=== PATIENT | male | born 1950 | race Caucasian/White ===

== ENCOUNTER → 2017-10-02 | Outpatient (CLI) | payer OTHER ==
[~2017-10-02] MED LIST: REGADENOSON 0.4 MG/5 ML PF SYG IVP SCH
== END | disposition home or self-care (01) ==
LOC: SHCH 08:41
PROVIDERS: ATTEND Internal Medicine Cardiovascular Disease
DX: I10 Essential (primary) hypertension (principal); J44.9 Chronic obstructive pulmonary disease, unspecified
CPT/HCPCS: 78452; 93017; 96374; A9500 ×2; J2785

== ENCOUNTER → 2017-10-11 | Outpatient (CLI) | payer OTHER | END | disposition home or self-care (01) | LOC: SHCH 15:39 → EDUNIT# 16:00 | PROVIDERS: ATTEND Internal Medicine Cardiovascular Disease | DX: I51.7 Cardiomegaly (principal); I10 Essential (primary) hypertension | CPT/HCPCS: 93306 ==

== ENCOUNTER 2021-02-03 07:16 | Day surgery (SDC) | payer OTHER ==
[2021-02-02 14:52] LABS: BASOPHILS % (AUTO) 0.7 % (0.0-5.0); EOSINOPHILS % (AUTO) 2.5 % (0.0-8.0); HEMATOCRIT 41.8 % (42-54); LYMPHOCYTES % (AUTO) 17.5 % (21.0-51.0); MEAN CORPUSCULAR HEMOGLOBIN 30.8 pg (27.0-33.0); MEAN CORPUSCULAR HGB CONC 32.3 g/dL (32.0-36.0); MEAN CORPUSCULAR VOLUME 95.4 fL (79-99); MONOCYTES % (AUTO) 8.2 % (3.0-13.0); NEUTROPHILS % (AUTO) 70.7 % (40.0-77.0); PLATELET COUNT (AUTO) 296 K/uL (130-400); RED BLOOD CELL COUNT(AUTO) 4.38 MIL/uL (4.50-6.20); RED CELL DISTRIBUTION WIDTH 13.2 % (11.0-15.5)
[2021-02-02 15:00] LABS: CREATININE 1.2 mg/dL (0.5-1.5); POTASSIUM 4.5 mmol/L (3.5-5.1)
[2021-02-02 15:29] VITALS: BP 141/94
[2021-02-03] VITALS (17 sets, daily range): BP systolic 81–142; BP diastolic 54–88
[~2021-02-03] VITALS: Ht 182.9 cm; Wt 111.3 kg
[~2021-02-03 07:16] MED LIST changes: +ACET-2743 PO; +APIX5TAB PO; +DILT300C51 PO; +DRON400T7 PO; +LOSA25TA41 PO; +METO25TA6 PO; -REGADENOSON 0.4 MG/5 ML PF SYG IVP SCH; +TIOT4MIS3 IH
[2021-02-03] MEDS ORDERED: 0.9%NACL 1000ML 1,000 ML IV SCH (08:00)
[2021-02-03] MEDS ORDERED: PROPOFOL 10 MG/ML 20ML VIAL IV ONE (08:49)
== END 2021-02-03 10:30 | disposition home or self-care (01) ==
LOC: DAH 07:16
PROVIDERS: ATTEND Internal Medicine Cardiovascular Disease
DX: I48.19 Other persistent atrial fibrillation (principal); Z20.822 Contact with and (suspected) exposure to COVID-19; J44.9 Chronic obstructive pulmonary disease, unspecified; I10 Essential (primary) hypertension; I25.10 Atherosclerotic heart disease of native coronary artery without angina pectoris; Z72.89 Other problems related to lifestyle; Z79.82 Long term (current) use of aspirin; Z79.01 Long term (current) use of anticoagulants; Z98.890 Other specified postprocedural states; Z90.49 Acquired absence of other specified parts of digestive tract; Z82.49 Family history of ischemic heart disease and other diseases of the circulatory system; Z79.899 Other long term (current) drug therapy
CPT/HCPCS: 36415; 80048; 85025; 87635; 92960; 93005 ×2; A4215; A4216; A4221; A4222; A4223 ×3; A4606; A4663; C9803; J2704; J7030

== ENCOUNTER → 2021-05-11 | Outpatient (CLI) | payer OTHER ==
[~2021-05-11] MED LIST changes: +ALBUTEROL 0.083% 2.5 MG/3 ML INH IH ONE; -METO25TA6 PO
== END | disposition home or self-care (01) ==
LOC: RESP 12:46
PROVIDERS: ATTEND Internal Medicine Cardiovascular Disease
DX: R06.02 Shortness of breath (principal)
CPT/HCPCS: 94060; 94727; 94729

== ENCOUNTER → 2025-02-24 | Outpatient (CLI) | payer OTHER ==
[~2025-02-24] MED LIST changes: -ALBUTEROL 0.083% 2.5 MG/3 ML INH IH ONE; +DILT300C42 PO; -DILT300C51 PO; +PERFLUTREN PROTEIN-A MICROSPHR 0.22 MG/ML VIAL IV ONE
--- NOTE | 2025-02-24 22:08 | HMCSR ---
APPROVED REPORT EXAM: Two-dimensional and M-mode echocardiogram with Doppler and color Doppler. INDICATION ICD: I50.42 Contrast Details Agent/Amount Used: [id number] 2D Dimensions RVDd5.4 cmLVEF(%)23.1 (>50%)LVED Vol(simp.)126.0 mL IVSd1.0 (0.7-1.1cm)FS(%)11 %LVES Vol(simp.)83.0 mL LVDd5.1 (3.8-5.6cm)LA (2D)5.1 (1.6-4.0cm)LVEF(%, simp.)35 % PWd1.0 (0.7-1.1cm)Ao Root(2D)3.5 (2.0-3.7cm)LA ESV INDEX (BP)59.41 mL/m2 IVSs0.9 cmLVOT diam2.5 (1.8-2.4cm) LVDs4.5 (2.5-4.0cm)IVC diam2.9 cm PWs1.4 cm M-Mode Dimensions EPSS1.6 cm LA (MM)5.5 (1.6-4.0cm) Ao Root(MM)3.8 (2.0-3.7cm) Aortic Valve AoV Vmax2.5 m/Tati Peak GR24.7 mmHgLVOT Vmax0.7 m/s AoV VTI0.4 mAo Mean GR13.5 mmHgLVOT VTI0.11 m REGAN (VMAX)1.48 cm2AVA (VTI) 1.5 cm2 Mitral Valve MV E Vmax77.0 cm/sDECEL [id number] msMR [id number] cm2 MV A Vmax42.2 cm/sP 1/2 T35 ms E/A ratio1.8MVA (PHT)6.3 cm2 TDI E/E' Medial8.8E/E' Lateral6.7 Medial E' Peak V8.72 cm/sLateral E' Peak V11.45 cm/s Pulmonary Valve PV Vmax0.7 m/sPV VTI0.10 mPV Mean GR0.9 mmHg PV Peak GR1.7 mmHgPI End Valentina. Nicanor 156.9 cm/s Tricuspid Valve TR Vmax2.5 m/sRAP (EST) 15 gyJvWAJX65.3 mmHg TR Peak GR27.3 mmHg Left Ventricle The left ventricle is normal size. Severe inferoseptal, apical septal and apical hypokinesis. There i s normal left ventricular wall thickness. LVEF is 30-35%. The left ventricular diastolic function is normal. Right Ventricle The right ventricle is severely dilated. The right ventricular systolic function is mildly reduced. Atria The left atrium is severely dilated. LASVI 59 mL/m. The right atrium is severely dilated. Aortic Valve Aortic valve is trileaflet, heavily thickened with restricted opening. Mild aortic regurgitation is p resent. There is moderate aortic valvular stenosis. Peak AV gradient is 25mmHg, mean AV gradient is 1 4mmHg. AoV area 1.5cm. AoV area by planimetry 1.4cm. Mitral Valve The mitral valve is normal in structure. There is severe mitral valve regurgitation noted. MR ERO 0.4 cm. Reversed pulmonary vein flow noted. There is no mitral valve stenosis. Tricuspid Valve The tricuspid valve leaflets are mildly thickened and opens well. There is severe tricuspid valve reg urgitation noted by color Doppler. RVSP 42mmHg Pulmonic Valve The pulmonary valve is normal in structure. There is trace of pulmonic valvular regurgitation. Great Vessels The aortic root is normal in size. IVC is dilated and collapses <50% with inspiration. Pericardium There is no pericardial effusion. Other Information Quality : Adequate Conclusion The left atrium is severely dilated. LASVI 59 mL/m. The right ventricle is severely dilated. The right ventricular systolic function is mildly reduced. Severe inferoseptal, apical septal and apical hypokinesis. LVEF is 30-35%. Aortic valve is trileaflet, heavily thickened with restricted opening. There is moderate aortic valvular stenosis. Peak AV gradient is 25mmHg, mean AV gradient is 14mmHg. AoV area 1.5cm. AoV area by planimetry 1.4cm. There is severe mitral valve regurgitation noted. MR ERO 0.4 cm. Reversed pulmonary vein flow noted. There is severe tricuspid valve regurgitation noted by color Doppler. RVSP 42mmHg There is no pericardial effusion.
== END | disposition home or self-care (01) ==
LOC: RAH 13:59
PROVIDERS: ATTEND Internal Medicine Cardiovascular Disease
DX: I08.3 Combined rheumatic disorders of mitral, aortic and tricuspid valves (principal); I50.42 Chronic combined systolic (congestive) and diastolic (congestive) heart failure
CPT/HCPCS: C8929; Q9956

== ENCOUNTER 2025-03-26 12:51 | Inpatient (IN) | payer OTHER ==
[~2025-03-26] VITALS: Ht 182.9 cm; Wt 90.2 kg
[~2025-03-26 12:51] MED LIST changes: -PERFLUTREN PROTEIN-A MICROSPHR 0.22 MG/ML VIAL IV ONE
--- NOTE | 2025-03-26 13:03 | ERN ---
ED Note History of Present Illness Stated Complaint: BILATERAL LOWER EXTREMITY SWELLING,ABDOMINAL PAIN Chief Complaint: Multiple Complaints Time Seen by MD: 12:54 Dictation: PATIENT IS A 75-YEAR-OLD HERE WITH HIS WITH MULTIPLE COMPLAINTS 1ST COMPLAINT IS HE HAS A INTERMITTENT RIGHT UPPER QUADRANT PAIN WORSE AFTER FOOD OCCASIONALLY SINCE NOVEMBER 2024. HE HAS AL[facility] AND HAD ULTRASOUND DONE THAT SHOWED HE HAD CHOLELITHIASIS. HE WAS NEVER REFERRED TO A SURGEON. SECOND COMPLAINT IS HE IS HAVING SHORTNESS A BREATH WITH A EDEMA TO THE BILATERAL EXTREMITIES FOR SEVERAL MONTHS. STATES HE IS WORKING WITH DR. HANSEN FOR ATRIAL FIBRILLATION AND A PACEMAKER DUE TO FLUID OVERLOAD. THIRD COMPLAINT IS GENERALIZED BODY WEAKNESS. FOURTH COMPLAINT IS LEFT FLANK PAIN WITH A AN ABRASION NOTED TO THE FLANK STATUS POST A FALL TWO DAYS AGO. STATES HIS PAIN IS A 10/10, DID NOT GO TO THE HOSPITAL. Allergies: Coded Allergies: No Known Drug Allergies (Unverified Allergy, Unknown, 10/01/17) Home Meds Reported Medications Tiotropium Br/Olodaterol HCl (Stiolto Respimat Inhal [place]) 4 Gm Mist.inhal, 2 PUFF IH DAILY 02/02/21 Acetaminophen (Tylenol Extra Strength) 500 Mg Tablet, 500 MG PO AD PRN for PAIN LEVEL 1 TO 5, TAB 02/02/21 Diltiazem HCl (Diltiazem ER) 300 Mg Capsule.er, 300 MG PO DAILY, CAP 02/02/21 Apixaban (Eliquis) 5 Mg Tablet, 5 MG PO BID, TAB 02/02/21 Losartan Potassium (Losartan Potassium) 25 Mg Tablet, 25 MG PO DAILY, TAB 02/02/21 Dronedarone Hydrochloride (Multaq) 400 Mg Tablet, 400 MG PO BID, TAB 02/02/21 Past Medical History Past Medical History: A-Fib, CHF, COPD Surgical History: Other Social History: Smokers RN Note Reviewed/Agreed w/PFSH: Yes Review of System Dictation CONSTITUTIONAL: NEGATIVE EXCEPT FOR HPI GB W HEAD/FACE: NEGATIVE EXCEPT FOR HPI EENT: NEGATIVE EXCEPT FOR HPI RESPIRATORY: NEGATIVE EXCEPT FOR HPI SHORTNESS A BREATH THREE TO 4+ EDEMA BILATERAL LOWER EXTREMITIES GASTROINTESTINAL/ABDOMINAL: NEGATIVE EXCEPT FOR HPI GENITOURINARY: NEGATIVE EXCEPT FOR HPI MUSCULOSKELETAL: NEGATIVE EXCEPT FOR HPI LEFT LATERAL LUMBAR PAIN WITH A ABRASION INTEGUMENTARY: NEGATIVE EXCEPT FOR HPI NEUROLOGICAL/PSYCH: NEGATIVE EXCEPT FOR HPI HEMATOLOGIC/LYMPHATIC: NEGATIVE EXCEPT FOR HPI ALL SYSTEMS NEGATIVE, EXCEPT NOTED ABOVE. 13 POINT REVIEW OF SYSTEMS ASSESSED AND ALL NEGATIVE EXCEPT FOR ABOVE. Initial Vital Sign VS Vital Signs Date Time Temp Pulse Resp B/P (MAP) Pulse Ox O2 Delivery O2 Flow Rate FiO2 03/26/25 12:54 97.3 86 20 141/71 99 Room Air 03/26/25 14:11 0 21 Physical Exam Dictation VITAL SIGNS REVIEWED GENERAL APPEARANCE: ALERT, ORIENTED X 3, MODERATE ACUTE DISTRESS, WELL DEVELOPED, NOURISHED. HEAD AND FACE: NON-TRAUMATIC. EYES: PERRL, PINK CONJUNCTIVAS, EYELID NO TRAUMA, ANTERIOR CHAMBER WITH ARCUS SENILIS. EARS: PINNAS INTACT AND NO SIGNS OF TRAUMA OR ERYTHEMA EAR CANALS CLEAR AND NO DISCHARGE TM NO ERYTHEMA NOSE: NO DISCHARGE, NO BLEEDING. OROPHARYNX: MOUTH NORMAL, TONGUE PINK, PHARYNX CLEAR,NO ERYTHEMA, TONSILS NO EXUDATES, NO ABSCESSES NOTED, MUCOUS MEMBRANE MOIST NECK: SUPPLE, NON-TENDER, NO THYROMEGALY, NO MASSES, NO JVD, NO BRUITS BREAST:DEFERRED CHEST:NO TENDERNESS, NO CREPITUS, NO PARADOXICAL MOVEMENT, NO RETRACTIONS LUNGS:CLEAR, WELL-VENTILATED, SYMMETRIC, NO RALES, NO WHEEZING, NO RHONCHI, NO STRIDOR, GOOD BREATH SOUNDS BILATERALLY HEART: REGULAR RATE, REGULAR RHYTHM, NO MURMUR, NO GALLOPS VASCULAR: 4+ EDEMA PERIPHERAL EDEMA, ABDOMEN: SOFT, POSITIVE BOWEL SOUNDS, NONDISTENDED, NO GUARDING, MILD RIGHT UPPER QUADRANT TENDERNESS WITH PALPATION. NO REBOUND, NO MASSES NO HEPATOMEGALY, NO SPLENOMEGALY, NO MONTE'S SIGN, NO HERNIAS. RECTAL: DEFERRED GENITAL: DEFERRED NEUROLOGICAL: NORMAL SPEECH, MOTOR FUNCTION INTACT, SENSORY FUNCTION INTACT MUSCULOSKELETAL: NECK NONTENDER, FULL RANGE OF MOTION, MODERATE TENDERNESS TO LEFT LUMBAR WITH A ABRASION NOTED. EXTREMITIES: NONTENDER, FULL RANGE OF MOTION SKIN: COLOR PINK, DRY, NO TURGOR, NO RASH, NO LACERATIONS, NO ABRASIONS, NO CONTUSIONS. LYMPHATIC: DEFERRED Results (Laboratory/Radiology) Laboratory/Radiology Laboratory Tests Test 03/26/25 13:14 White Blood Count 14.7 K/uL (4.8-10.8) H Red Blood Count 4.76 MIL/uL (4.50-6.20) Hemoglobin 15.4 g/dL (14.0-18.0) Hematocrit 46.8 % (42-54) Mean Corpuscular Volume 98.3 fL (79-99) Mean Corpuscular Hemoglobin 32.4 pg (27.0-33.0) Mean Corpuscular Hemoglobin Concent 32.9 g/dL (32.0-36.0) Red Cell Distribution Width 13.7 % (11.0-15.5) Platelet Count 270 K/uL (130-400) Mean Platelet Volume 9.1 fL (7.5-10.5) Immature Granulocyte % (Auto) 1.2 % (0-1) H Neutrophils (%) (Auto) 81.6 % (40.0-77.0) H Lymphocytes (%) (Auto) 7.5 % (21.0-51.0) L Monocytes (%) (Auto) 8.8 % (3.0-13.0) Eosinophils (%) (Auto) 0.5 % (0.0-8.0) Basophils (%) (Auto) 0.4 % (0.0-5.0) Neutrophils # (Auto) 12.0 K/uL (1.8-7.7) H Lymphocytes # (Auto) 1.1 K/uL (1.0-4.8) Monocytes # (Auto) 1.3 K/uL (0.1-1.0) H Eosinophils # (Auto) 0.07 K/uL (0.00-0.70) Basophils # (Auto) 0.06 K/uL (0.00-0.20) Absolute Immature Granulocyte (auto 0.17 K/uL (0-1) Nucleated Red Blood Cells 0.0 % (0.0-0.19) White Cell Morphology Comment See comments Sodium Level 127 mmol/L (136-145) L Potassium Level 5.3 mmol/L (3.5-5.1) H Chloride Level 91 mmol/L (101-111) L Carbon Dioxide Level 27 mmol/L (21-32) Blood Urea Nitrogen 21 mg/dL (7-18) H Creatinine 1.0 mg/dL (0.5-1.3) Glomerular Filtration Rate Calc 78 mL/min (>90) Random Glucose 87 mg/dL (70-105) Total Calcium 9.0 mg/dL (8.5-10.1) Magnesium Level 2.00 mg/dL (1.80-2.40) Total Bilirubin 1.9 mg/dL (0.2-1.0) H Aspartate Amino Transf (AST/SGOT) 25 U/L (10-37) Alanine Aminotransferase (ALT/SGPT) 24 U/L (12-78) Alkaline Phosphatase 76 U/L (50-136) Troponin I High Sensitivity 14 ng/L (4-75) B-Type Natriuretic Peptide 1190 pg/mL (0-100) H Total Protein 7.3 g/dL (6.0-8.3) Albumin 3.7 g/dL (3.5-5.0) 1202/RIGHT UPPER QUADRANT ULTRASOUND DEMONSTRATES GALLBLADDER WALL THICKENED, 6 MM WITH STONES AND APPEARS DISTENDED. 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 ED Course ED Course Orders Procedure Category Date Status Time B-Type Natriuretic LAB 03/26/25 Complete Peptide 12:59 Lumbar Spine 2-3vws RAD 03/26/25 Taken 12:59 Cbc With Differential LAB 03/26/25 Complete 12:59 Chest 1vw RAD 03/26/25 Taken 12:59 12 Lead Ekg Tracing- EKG 03/26/25 Complete Technical 12:59 Magnesium LAB 03/26/25 Complete 12:59 Troponin I High LAB 03/26/25 Complete Sensitivity 12:59 Urinalysis Profile LAB 03/26/25 Logged 12:59 Morphine 2mg Syg PHA 03/26/25 Complete (Morphine 2mg Syg) 13:00 Ondansetron 4mg Inj PHA 03/26/25 Complete (Zofran 4mg Inj) 13:00 Us Abdominal Ruq\Ltd US 03/26/25 Taken 12:59 Comprehensive LAB 03/26/25 Complete Metabolic Panel 12:59 Acetaminophen 500mg PHA 03/26/25 Complete Tab (Tylenol 500mg T 15:00 Acetaminophen 500mg PHA 03/26/25 Complete Tab (Tylenol 500mg T 14:39 Furosemide 40mg Vial PHA 03/26/25 Complete (Lasix 40mg Vial) 15:00 Current Medications Medications (Trade) Dose Ordered Sig/Dixie Route PRN Reason Start Time Stop Time Status Last Admin Dose Admin Acetaminophen (TYLenol 500MG TAB) 500 mg STK-MED ONCE .ROUTE 03/26/25 14:39 03/26/25 14:39 DC Acetaminophen (TYLenol 500MG TAB) 1,000 mg ONCE ONCE PO 03/26/25 15:00 03/26/25 15:01 DC 03/26/25 14:44 Furosemide (LASix 40MG VIAL) 40 mg ONCE ONCE IV 03/26/25 15:00 03/26/25 15:01 DC Morphine Sulfate (morPHINE 2MG SYG) 2 mg ONCE ONCE IVP 03/26/25 13:00 03/26/25 13:02 DC Ondansetron HCl (zoFRAN 4MG INJ) 4 mg ONCE ONCE IVP 03/26/25 13:00 03/26/25 13:02 DC Vital Signs Date Time Temp Pulse Resp B/P (MAP) Pulse Ox O2 Delivery O2 Flow Rate FiO2 03/26/25 14:11 97.5 102 20 100/84 99 Room Air* 0 21 03/26/25 12:54 97.3 86 20 141/71 99 Room Air 1508/SPOKE WITH PATIENT IN HIS AT LENGTH HE IS AWARE THAT HE HAS A BNP OF 11 40 IN HIS AN ACUTE CONGESTIVE HEART FAILURE. IN ADDITION HIS SODIUM IS LOW 127 [place] [address] WBCS AND HE HAS GOT CHOLELITHIASIS. PATIENT WISHES TO BE ADMITTED TO THE HOSPITAL FOR CONSULTATION WITH CARDIOLOGY FOR CONGESTIVE HEART FAILURE ATRIAL FIBRILLATION AND CHOLELITHIASIS. REVIEW OF PRIOR 2D ECHOCARDIOGRAM DEMONSTRATES PATIENT HAS A VENTRICULAR CONTRACTILITY ISSUES AND INDIGESTION FRACTION 30-35%. HE REMAINS IN ATRIAL FIBRILLATION 1530/SPOKE WITH SHAMEKA HANCOCK, REVIEWED EKG LABS CHEST X-RAY X-RAYS OF LUMBAR WELL RIGHT UPPER QUADRANT ULTRASOUND. HE IS AWARE THE PATIENT HAS BEEN SEEN BY , AGREED TO ADMIT PATIENT HEART Score Response (Comments) Value EKG: Repolarization changes 1 Age: > 65yrs (+2) 2 Risk Factors: 3+ risk factors (+2) 2 Initial Troponin: Normal limit (0) 0 Total 5 Medical Decision Making MDM MDM: DIFFERENTIAL DIAGNOSIS: ACS/AMI/CHF/PNEUMONIA/BRONCHITIS/ELECTROLYTE IMBALANCE/DEHYDRATION/CHOLELITHIASIS/CHOLEDOCHOLITHIASIS/LUMBAR PAIN/FRACTURE RATIONALE: TESTS CONSIDERED AND ORDERED SECONDARY TO SHARED DECISION MAKING INCLUDE: LABS, ECG AND RADIOLOGY PREVIOUS OUTSIDE RECORDS REVIEWED: OLD ER VISITS. RISK OF COMPLICATION AND/OR MORBIDITY OR MORTALITY OF PATIENT MANAGEMENT: NONE MEDICATIONS-PER MEDICATION RECONCILIATION NEED FOR HOSPITALIZATION: PATIENT DOES MEET CRITERIA FOR HOSPITALIZATION. PATIENT NEEDS TO BE ADMITTED FOR DIURESIS ELECTROLYTE MANAGEMENT CARDIOLOGY CONSULTATION NEED FOR EMERGENCY MAJOR/MINOR SURGERY: NO THERE ARE NO SOCIAL CONCERNS WITH THIS PATIENT. PRESCRIPTION DRUG MANAGEMENT PRESCRIPTIONS WILL INCLUDE SYMPTOMATIC CARE PATIENT'S PRIOR EXTERNAL MEDICAL RECORDS FROM OTHER ER VISITS WERE REVIEWED BY ME INDICATED. PRIOR TESTING AND RESULTS FROM PREVIOUS VISITS WERE REVIEWED. PRIOR TESTS WERE TAKEN INTO ACCOUNT WITH MEDICAL DECISION MAKING AND RESOURCE UTILIZATION, INDEPENDENT HISTORIAN/HISTORIANS WERE USED TO OBTAIN COMPLETE MEDICAL HISTORY. I INDEPENDENTLY INTERPRETED THE TEST THAT WERE PERFORMED, RESULTS WERE REVIEWED BY ME AND CONSIDERED FINDINGS ON RADIOLOGY IF ORDERED. MEDICAL MANAGEMENT AND EXAMINATION INTERPRETATION DISCUSSIONS WERE HAD BY ME WITH OTHER QUALIFIED HEALTHCARE PROFESSIONALS INDICATED FOR THE PATIENT'S CARE. DX & DISP Disposition: Observation Decision to Admit Time: 15:09 Departure Impression: Primary Impression: Acute exacerbation of CHF (congestive heart failure) Additional Impressions: Atrial fibrillation, Hyponatremia, Hypochloremia, Elevated bilirubin, Cholelithiasis Condition: Stable Referrals: RICHARD AGUILA (PCP) Time of Disposition: 15:09 I have reviewed the case, and I agree with, Diagnosis and Plan FRANCIA MENDOZA Mar 26, 2025 13:02
[2025-03-26 13:20] LABS: IMMATURE GRANULOCYTE ABSOLUTE 0.17 K/uL (0-1); NUCLEATED RED BLOOD CELLS 0.0 % (0.0-0.19); PLATELET COUNT (AUTO) 270 K/uL (130-400); RED BLOOD CELL COUNT(AUTO) 4.76 MIL/uL (4.50-6.20); RED CELL DISTRIBUTION WIDTH 13.7 % (11.0-15.5); WHITE BLOOD COUNT (AUTO) 14.7 K/uL (4.8-10.8)
[2025-03-26 13:28] LABS: CREATININE 1.0 mg/dL (0.5-1.3); GLOMERULAR FILTR. RATE CALC 78.0 mL/min (>90); GLUCOSE,RANDOM 87.0 mg/dL (70-105); SODIUM SERUM 127.0 mmol/L (136-145); UREA NITROGEN, BLOOD 21.0 mg/dL (7-18)
[2025-03-26 13:33] LABS: ASPARTATE AMINOTRANSFERASE 25.0 U/L (10-37); TOTAL PROTEIN, SERUM 7.3 g/dL (6.0-8.3)
--- NOTE | 2025-03-26 13:34 | EKG ---
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1950 Requested By: FRANCIA MENDOZA Order Number: [id number] Reading MD: Ayaz Sagastume Measurements Intervals [place] Rate: 98 P: 0 OR: 0 QRS: -49 QRSD: 107 T: 54 QT: 390 QTc: 501 Interpretive Statements Atrial fibrillation Incomplete RBBB and LAFB Prolonged QT interval Compared to ECG 02/03/2021 09:51:45 Left anterior fascicular block now present Incomplete right bundle-branch block now present Right bundle-branch block now present Prolonged QT interval now present Sinus bradycardia no longer present Electronically Signed On 03-26-2025 17:48:34 CDT by Ayaz Sagastume Please click the below link to view image of tracing.
--- NOTE | 2025-03-26 15:58 | HMCIMG ---
EXAM: CR Chest, 1 View. CLINICAL HISTORY: SHORTNESS A BREATH COMPARISON: None provided. FINDINGS: LUNGS: There is no mass, infiltrate, or acute pulmonary abnormality. Mild left midlung linear atelectasis versus scarring. PLEURAL SPACES: No evidence of pleural effusion or pneumothorax. MEDIASTINUM: The cardiomediastinal silhouette is within normal limits. Mild aortic arch calcific atherosclerosis. Right chest port and intact catheter in place BONES: No acute osseous abnormality. IMPRESSION: No acute cardiopulmonary pathology is evident. /[place]
--- NOTE | 2025-03-26 15:59 | HMCIMG ---
EXAM: CR Lumbar Spine, 3 View. CLINICAL HISTORY: LEFT LATERAL LUMBAR PAIN STATUS POST FALL TWO DAYS AGO COMPARISON: None provided. FINDINGS: BONES: No acute fracture or aggressive appearing osseous lesion. ALIGNMENT: Alignment is within normal limits. No significant scoliosis. Straightening the normal lumbar lordosis. Mild loss of the disc heights at L3-S1. Mild to moderate facet arthrosis L4-S1. Marked abdominal aorta and bilateral common iliac artery calcific atherosclerosis without evidence of aneurysm. The bony structures appear somewhat demineralized. SOFT TISSUES: The soft tissues are unremarkable. IMPRESSION: 1. No acute osseous injury. 2. Straightening of normal lumbar lordosis. 3. Mild disc height loss at L3-S1. 4. Mild to moderate facet arthrosis L4-S1. 5. Marked calcific atherosclerosis of abdominal aorta and bilateral common iliac arteries without aneurysm. 6. Demineralization of bony structures. /[place]
--- NOTE | 2025-03-26 16:02 | HMCIMG ---
EXAM: US Abdomen, Right Upper Quadrant. CLINICAL HISTORY: RIGHT UPPER QUADRANT PAIN TECHNIQUE: Right upper quadrant sonography performed with image documentation. COMPARISON: None provided. FINDINGS: LIVER: The enlarged liver measures 16.4 cm with increased echogenicity suggestive of hepatic steatosis. No mass. GALLBLADDER: The gallbladder is distended with stones and wall thickening (6 mm). COMMON BILE DUCT: Within normal limits in size (6 mm). PANCREAS: The visualized pancreas appears within normal limits. The distal pancreas is obscured by bowel gas. RIGHT KIDNEY: Measures 9.1 x 4.8 x 3.7 cm. Normal renal contours. No renal mass or calculus. No hydronephrosis. IMPRESSION: 1. Cholelithiasis with gallbladder wall thickening, suggesting acute cholecystitis. 2. Hepatomegaly with increased echogenicity, consistent with hepatic steatosis. /[place]
--- NOTE | 2025-03-26 16:17 | NUR ---
DCP:HOME Pt currently lives at home with his Ariane Shepherd [phone]. Pt does have a walker and wheelchair at home. Pt does not have a provider or home health agency. Pt states that assists him with his ADLs. PCP is Dr. Ernesto Arnold [facility]. Pt also uses the [facility] for any RX needs. At [place] pt will want to go home and family can assist with transportation. Addendum: 03/26/25 at 1625 by DOUG COATES SS Amended: Links added.
[2025-03-26 16:24] LABS: INR 1.37 (0.85-1.15)
[2025-03-26] MEDS ORDERED: 0.9%NACL 50ML IV SCH (16:30)
[2025-03-26 16:45] LABS: LACTATE DEHYDROGENASE 329.0 U/L (81-234)
[2025-03-26 16:50] VITALS: PULSE 90; RESP 20; O2SAT 99
[2025-03-26] MEDS: ZOSYN 3.375GM +NS 50ML IVPB SCH (16:56)
--- NOTE | 2025-03-26 16:59 | HMCIMG ---
EXAM: CT Abdomen and Pelvis Without IV contrast CLINICAL HISTORY: possible cholecystitis, fall few days ago with lower back pain TECHNIQUE: Axial computed tomography images of the abdomen and pelvis without intravenous contrast. CONTRAST: No IV contrast. COMPARISON: None provided. FINDINGS: LUNG BASES: Small pleural LIVER: Unremarkable. GALLBLADDER AND BILE DUCTS: Some gallstones, thickened gallbladder wall. Cholecystitis cannot be excluded right upper quadrant ultrasound recommended PANCREAS: Unremarkable. SPLEEN: Unremarkable. ADRENAL GLANDS: Unremarkable. KIDNEYS, URETERS, AND BLADDER: The kidneys appear within normal limits. There is no hydronephrosis or hydroureter. No urinary calculi are seen. STOMACH AND BOWEL: Unremarkable appearance of the stomach and bowel. No evidence of bowel obstruction. No evidence suggesting enteritis or colitis. APPENDIX: No evidence of acute appendicitis on CT examination. PERITONEUM: No free fluid. No free air. LYMPH NODES: No lymphadenopathy is evident. REPRODUCTIVE: Unremarkable as visualized. VASCULATURE: No evidence of abdominal aortic aneurysm. BONES: No aggressive appearing osseous lesion. No acute osseous pathology evident. MISCELLANEOUS: Left flank subcutaneous hematoma/edema formation felt to be posttraumatic IMPRESSION: 1. Some gallstones, thickened gallbladder wall. Cholecystitis cannot be excluded right upper quadrant ultrasound recommended 2. Small pleural 3. Left flank subcutaneous hematoma/edema formation felt to be posttraumatic /[place]
--- NOTE | 2025-03-26 17:00 | HMCIMG ---
EXAM: US for Deep Venous Thrombosis, bilateral Lower Extremity. CLINICAL HISTORY: Leg Pain and Swelling TECHNIQUE: Real-time ultrasound scan of the veins of the bilateral lower extremity with color Doppler flow, spectral waveform analysis and compression. COMPARISON: None provided. FINDINGS: DEEP VEINS: The common femoral, superficial femoral, and popliteal veins are echolucent and compressible. There is normal color Doppler flow throughout. The visualized calf veins appear patent. SOFT TISSUES: No popliteal fossa cyst or other abnormalities. IMPRESSION: Pulsatile flow suggesting heart failure No deep venous thrombosis evident on bilateral lower extremity examination. /[place]
--- NOTE | 2025-03-26 17:27 | HP ---
[facility] HISTORY AND PHYSICAL Date of Service: Mar 26, 2025 Time of Service: 17:05 HISTORY OF PRESENT ILLNESS: Date of service: 03/26/2025, patient was seen in ER 15 This is a 75-year-old male with history of advanced cardiomyopathy with LVEF of 30-35%, history of moderate valvular aortic stenosis, history of severe mitral valve regurgitation, COPD, history of severe tricuspid valve regurgitation, hypertension, atrial fibrillation maintained on chronic anticoagulation with Eliquis who presented to the ER for further evaluation of shortness of breadth, significant lower extremity edema as well as intermittent right upper quadrant abdominal pain. Patient is hard of hearing and patient's was present at bedside to assist with further history. reports that patient has been having progressive lower extremity edema ongoing for several days. Patient has been having dyspnea on exertion as well. Patient is followed by Dr. Lackey with Cardiology as outpatient. He is also followed by Dr. Mata as outpatient and he has been up coming appointment to evaluate for ICD/[employer] D therapy evaluation. Patient has a history of advanced cardiomyopathy with valvulopathy. He is currently maintained on 10 mg of torsemide daily. He is on high-dose metoprolol succinate for management of atrial fibrillation as well. He gets short of breath with minimal ambulation, he has significant lower extremity edema which has been worsening as well. Patient has been following up with his PCP for issues with gallbladder related pain. He was previously told that he has cholelithiasis. He gets intermittent right upper quadrant pain. Oral intake has been poor as well. Patient fell about two days ago, and he has been having some back pain involving the left flank and lower back. He denies syncope or hitting his head with the fall. He recently had a CT head without contrast in December after he fell and hit his head. states that CT head without contrast was negative. Since the fall, patient developed a small wound in the back for which patient's has been applying band aid to it. Patient reports having history of atrial fibrillation and is maintained on chronic anticoagulation with Eliquis. Last dose of Eliquis was earlier this morning. on Presentation to the hospital, patient was noted to be afebrile with T-max of 97.3 F, heart rate of 83 with EKG showed findings of atrial fibrillation with PVCs and prolonged QTC. [place] [address], hemoglobin of 15.4, platelet count of 745326. BMP showed sodium of 127, potassium 5.3, BUN of 21, creatinine of 1.0, BNP of 1190. Chest x-ray showed mild bilateral infiltrates, abdominal ultrasound showed fin dings suggestive of acute cholecystitis. Patient will be admitted to cardiac telemetry floor for management of acute on chronic systolic heart failure exacerbation in the setting of advanced cardiomyopathy and valvulopathy. Patient will be started on broad-spectrum antibiotics due to concerns of acute cholecystitis. Consultation with Cardiology will be requested. Patient will be managed conservatively with regards to acute cholecystitis, we will have surgery follow this patient. Patient will be placed on fluid restrictions due to underlying hyponatremia. sodium will be monitored closely while on IV diuretics. REVIEW OF SYSTEMS CONSTITUTIONAL: Denies fevers or chills, reports having malaise and poor oral intake NEUROLOGICAL: Denies headache, amaurosis fugax, motor weakness, sensory deficit, vertigo/spinning sensation, gait abnormalities, or tremors. ENT: No hearing loss, otalgia, otorrhea, rhinitis, rhinorrhea, hoarseness, or sore throat. CARDIOVASCULAR: Reports having significant lower extremity edema, history of heart failure, denies active chest pain PULMONARY: Reports having dyspnea on exertion SLEEP: Denies morning headaches, daytime somnolence or napping. Denies difficulty falling asleep, staying asleep, waking from sleep. Denies knowledge of snoring. GASTROINTESTINAL: Reports having poor oral intake, denies nausea or vomiting GENITOURINARY: Denies frequency, urgency, nocturia, hematuria or incontinence (Storage/Irritative symptoms.) Low urinary stream, straining to void, urinary intermittency or hesitancy, splitting of the voiding stream, terminal dribbling. ENDOCRINOLOGIC: Denies polyuria, polydipsia, polyphagia or heat/cold intolerances. HEMATOLOGIC: Denies thrombophilia/previous clots, or coagulopathy/bleeding disorders. ONCOLOGIC: Denies personal history of malignancy. DERMATOLOGIC: Denies rashes or pruritus. PSYCHIATRIC: Denies any suicidal or homicidal ideation. Denies hallucinations. 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, denies any illicit drug use, resides with at home, since with [facility] FAMILY HISTORY: Pertinent family history Allergies: No known drug allergies Home medications: Family will be bringing list of home medications will be reconciled and updated, patient reports being on Eliquis5 mg twice daily, torsemide 10 mg daily, he is also on high-dose metoprolol for management of atrial fibrillation Coded Allergies: No Known Drug Allergies (Unverified Allergy, Unknown, 10/01/17) PHYSICAL EXAM GENERAL APPEARANCE: The patient is awake, alert, and oriented, in no acute cardiopulmonary distress, appears debilitated NEUROLOGICAL: Cranial nerves II-XII grossly intact. Motor is 5/5 in bilateral upper and lower extremities proximal to distal. No sensory deficits. HEENT: Face is symmetric. Pupils are equal and reactive. Extraocular movements are intact. NECK: Supple. No JVD. No thyromegaly. No submental, submandibular, pre- /postauricular, occipital or supraclavicular lymphadenopathy. CHEST: Normal chest expansion. No Telemetry. LUNGS: minimal crackles noted of the bilateral lung bases CARDIOVASCULAR: Regular. S1 and S2 normal. No appreciable rubs, murmurs or gallops. ABDOMEN: Soft, nontender, and nondistended. There is no rebound, voluntary guarding, or rigidity. : Deferred. No Hough. EXTREMITIES: 3+ pitting edema noted of the bilateral lower extremities SKIN: skin tear noted of the lower back Vital Sign (Last 24 Hours) 03/26/25 14:11 Temp 97.5 Pulse 102 Resp 20 B/P (MAP) 100/84 Pulse Ox 99 O2 Delivery Room Air* O2 Flow Rate 0 FiO2 21 LABS: Laboratory: Test 03/26/25 13:14 03/26/25 13:12 Range/Units White Blood Count 14.7 H 4.8-10.8 K/uL Red Blood Count 4.76 4.50-6.20 MIL/uL Hemoglobin 15.4 14.0-18.0 g/dL Hematocrit 46.8 42-54 % Mean Corpuscular Volume 98.3 79-99 fL Mean Corpuscular Hemoglobin 32.4 27.0-33.0 pg Mean Corpuscular Hemoglobin Concent 32.9 32.0-36.0 g/dL Red Cell Distribution Width 13.7 11.0-15.5 % Platelet Count 270 130-400 K/uL Mean Platelet Volume 9.1 7.5-10.5 fL Immature Granulocyte % (Auto) 1.2 H 0-1 % Neutrophils (%) (Auto) 81.6 H 40.0-77.0 % Lymphocytes (%) (Auto) 7.5 L 21.0-51.0 % Monocytes (%) (Auto) 8.8 3.0-13.0 % Eosinophils (%) (Auto) 0.5 0.0-8.0 % Basophils (%) (Auto) 0.4 0.0-5.0 % Neutrophils # (Auto) 12.0 H 1.8-7.7 K/uL Lymphocytes # (Auto) 1.1 1.0-4.8 K/uL Monocytes # (Auto) 1.3 H 0.1-1.0 K/uL Eosinophils # (Auto) 0.07 0.00-0.70 K/uL Basophils # (Auto) 0.06 0.00-0.20 K/uL Absolute Immature Granulocyte (auto 0.17 0-1 K/uL Nucleated Red Blood Cells 0.0 0.0-0.19 % White Cell Morphology Comment See comments Sodium Level 127 L 136-145 mmol/L Potassium Level 5.3 H 3.5-5.1 mmol/L Chloride Level 91 L 101-111 mmol/L Carbon Dioxide Level 27 21-32 mmol/L Blood Urea Nitrogen 21 H 7-18 mg/dL Creatinine 1.0 0.5-1.3 mg/dL Glomerular Filtration Rate Calc 78 >90 mL/min Random Glucose 87 70-105 mg/dL Total Calcium 9.0 8.5-10.1 mg/dL Magnesium Level 2.00 1.80-2.40 mg/dL Total Bilirubin 1.9 H 0.2-1.0 mg/dL Aspartate Amino Transf (AST/SGOT) 25 10-37 U/L Alanine Aminotransferase (ALT/SGPT) 24 12-78 U/L Alkaline Phosphatase 76 50-136 U/L Troponin I High Sensitivity 14 4-75 ng/L B-Type Natriuretic Peptide 1190 H 0-100 pg/mL Total Protein 7.3 6.0-8.3 g/dL Albumin 3.7 3.5-5.0 g/dL Erythrocyte Sedimentation Rate 27 H 0-20 MM/HR Prothrombin Time 14.1 H 9.6-11.6 SEC Prothromb Time International Ratio 1.37 H 0.85-1.15 Activated Partial Thromboplast Time 36.8 H 26.3-35.5 SEC Hemoglobin A1c 5.5 4.0-6.0 % Estimated Average Glucose (eAG) 111 70-126 mg/dL Lactate Dehydrogenase 329 H 81-234 U/L C-Reactive Protein, Quantitative 16.90 H 0.5-3.0 mg/L Procalcitonin < 0.05 L 0.05-0.5 ng/mL Thyroid Stimulating Hormone (TSH) 1.03 0.36-3.74 uIU/mL Current Medications Medications (Trade) Dose Ordered Sig/Dixie Route PRN Reason Start Time Stop Time Status Last Admin Dose Admin Acetaminophen (TYLenol 325MG TAB) 650 mg Q6H PRN PO MILD PAIN (1-3) 03/26/25 16:30 04/25/25 16:29 Enoxaparin Sodium (Lovenox (Pharmacy To Dose)) 1 unit BID SQ 03/26/25 21:00 03/27/25 20:59 Furosemide (LASix 40MG VIAL) 40 mg BID IV 03/26/25 21:00 04/25/25 20:59 Ipratropium [place] (AtrovENT UD) 0.5 mg Q6H PRN IH SHORTNESS OF BREATH 03/26/25 16:30 04/25/25 16:29 Magnesium Sulfate 50 ml @ 0 mls/hr PROTOCOL IV 03/26/25 16:30 04/25/25 16:29 Ondansetron HCl (zoFRAN 4MG INJ) 4 mg Q6H PRN IVP NAUSEA/VOMITING 03/26/25 16:30 04/25/25 16:29 Pantoprazole Sodium (PROTonix 40MG TAB) 40 mg DAILY PO 03/27/25 09:00 04/26/25 08:59 Piperacillin Sod/ Tazobactam Sod (Zosyn 3.375gm+NS 50ml) 3.375 gm Q8H IVPB 03/26/25 16:30 04/05/25 16:29 03/26/25 16:56 3.375 GM Sodium Chloride (NS 50ml) 50 ml AD IV 03/26/25 16:30 03/26/25 16:21 DC DIAGNOSTICS / RADIOLOGY: SERVICE [id number] REASON: possible cholecystitis, fall few days ago with lower back pain ORDERING PHYSICIAN: JEMAL TARIQ MD PROCEDURE: ABD PEL WO - CT ABDOMEN/PELVIS W/O CONTRAST EXAM: CT Abdomen and Pelvis Without IV contrast CLINICAL HISTORY: possible cholecystitis, fall few days ago with lower back pain TECHNIQUE: Axial computed tomography images of the abdomen and pelvis without intravenous contrast. CONTRAST: No IV contrast. COMPARISON: None provided. FINDINGS: LUNG BASES: Small pleural LIVER: Unremarkable. GALLBLADDER AND BILE DUCTS: Some gallstones, thickened gallbladder wall. Cholecystitis cannot be excluded right upper quadrant ultrasound recommended PANCREAS: Unremarkable. SPLEEN: Unremarkable. ADRENAL GLANDS: Unremarkable. KIDNEYS, URETERS, AND BLADDER: The kidneys appear within normal limits. There is no hydronephrosis or hydroureter. No urinary calculi are seen. STOMACH AND BOWEL: Unremarkable appearance of the stomach and bowel. No evidence of bowel obstruction. No evidence suggesting enteritis or colitis. APPENDIX: No evidence of acute appendicitis on CT examination. PERITONEUM: No free fluid. No free air. LYMPH NODES: No lymphadenopathy is evident. REPRODUCTIVE: Unremarkable as visualized. VASCULATURE: No evidence of abdominal aortic aneurysm. BONES: No aggressive appearing osseous lesion. No acute osseous pathology evident. MISCELLANEOUS: Left flank subcutaneous hematoma/edema formation felt to be posttraumatic IMPRESSION: 1. Some gallstones, thickened gallbladder wall. Cholecystitis cannot be excluded right upper quadrant ultrasound recommended 2. Small pleural 3. Left flank subcutaneous hematoma/edema formation felt to be posttraumatic /[place] DICTATED BY: LELIA CURIEL MD DATE: 03/26/251758 ELECTRONICALLY SIGNED BY: LELIA CURIEL MD DATE: 03/26/251758 SERVICE 125 REASON: RIGHT UPPER QUADRANT PAIN ORDERING PHYSICIAN: FRANCIA MENDOZA PROCEDURE: ABDRUQLTD - US ABDOMINAL RUQ\LTD EXAM: US Abdomen, Right Upper Quadrant. CLINICAL HISTORY: RIGHT UPPER QUADRANT PAIN TECHNIQUE: Right upper quadrant sonography performed with image documentation. COMPARISON: None provided. FINDINGS: LIVER: The enlarged liver measures 16.4 cm with increased echogenicity suggestive of hepatic steatosis. No mass. GALLBLADDER: The gallbladder is distended with stones and wall thickening (6 mm). COMMON BILE DUCT: Within normal limits in size (6 mm). PANCREAS: The visualized pancreas appears within normal limits. The distal pancreas is obscured by bowel gas. RIGHT KIDNEY: Measures 9.1 x 4.8 x 3.7 cm. Normal renal contours. No renal mass or calculus. No hydronephrosis. IMPRESSION: 1. Cholelithiasis with gallbladder wall thickening, suggesting acute cholecystitis. 2. Hepatomegaly with increased echogenicity, consistent with hepatic steatosis. /[place] DICTATED BY: SERGIO FONSECA MD DATE: 03/26/251701 ELECTRONICALLY SIGNED BY: SERGIO FONSECA MD DATE: 03/26/251701 SERVICE 58 REASON: SHORTNESS A BREATH ORDERING PHYSICIAN: FRANCIA MENDOZA PROCEDURE: CXR1VW - CHEST 1VW EXAM: CR Chest, 1 View. CLINICAL HISTORY: SHORTNESS A BREATH COMPARISON: None provided. FINDINGS: LUNGS: There is no mass, infiltrate, or acute pulmonary abnormality. Mild left midlung linear atelectasis versus scarring. PLEURAL SPACES: No evidence of pleural effusion or pneumothorax. MEDIASTINUM: The cardiomediastinal silhouette is within normal limits. Mild aortic arch calcific atherosclerosis. Right chest port and intact catheter in place BONES: No acute osseous abnormality. IMPRESSION: No acute cardiopulmonary pathology is evident. /[place] DICTATED BY: DOUG RAHMAN MD DATE: 03/26/251657 ELECTRONICALLY SIGNED BY: DOUG RAHMAN MD DATE: 03/26/251657 ASSESSMENT: Acute decompensated heart failure exacerbation, POA History of advanced dilated cardiomyopathy with LVEF of 30-35%, POA Acute cholecystitis, POA Status post fall, POA History of chronic atrial fibrillation maintained on chronic anticoagulation with Eliquis, POA Moderate aortic valvular stenosis, POA Severe mitral regurgitation, POA Severe tricuspid valve regurgitation, POA Status post fall with lower back pain and left flank pain, POA Large subcutaneous left flank hematoma measuring 20 cm x 4 cm, POA History of hypertension, POA Hypervolemic hyponatremia, POA Hyperkalemia, POA Leukocytosis, POA PLAN: Patient will be admitted to cardiac telemetry floor We will start patient on IV diuresis with Lasix 40 mg q.12h, we will monitor sodium trend closely, we will up titrate dose of Lasix in the next 24 hours based on urine output Patient does report having had a fall, denies syncopal episode or hitting his head, he has been having lower back pain and left flank pain since the fall, abdominal CT showed findings of left flank subcutaneous hematoma, hemoglobin is normal We will recheck hemoglobin later tonight, we will obtain type and screen, discussed patient's case with Dr. Sagastume with Cardiology [facility], due to findings of large left flank subcutaneous hematoma, measuring 20 cm x 4 cm, discussed with Radiology, Dr. Curiel, we will hold anticoagulation tonight, we will reassess tomorrow Consultation with Cardiology will be requested, patient has underlying history of advanced cardiomyopathy with multiple valvular issues Patient will be placed on fluid restrictions of 1.5 L daily reports that patient has had issues with tolerating PAYAL inhibitors in the past, we will continue with guideline directed medical therapy as tolerated with the patient Continue with home dose of metoprolol succinate for management of atrial fibril lation We will monitor renal function closely, we will monitor sodium trend closely tonight, we will recheck BMP in the morning Patient is having urinary retention of the ER, Hough catheter will be placed especially in the setting of IV diuresis, urine output will be monitored closely We will start patient on broad-spectrum antibiotics with IV Zosyn, patient underwent abdominal ultrasound with findings of acute cholecystitis, will keep patient NPO except for medications tonight Due to underlying multiple cardiac comorbidities, plan will be for conservative management of cholecystitis, we will request consultation with General surgery as well Patient has a wound in the back from recent fall, Wound Care will be requested All labs will be repeated in the morning All home medications will be reconciled and updated We will consider transitioning back to therapeutic dose of Lovenox tomorrow hemoglobin is stable and hematoma size is stable, we will consider repeating a CT abdomen pelvis in the next24 hours We will request consultation with Physical therapy tomorrow Reports drinking a glass of whiskey every day for long time for about 40 years, we will keep patient on CIWA protocol with low-dose Librium Date of service: 03/26/2025 Prognosis: Guarded Plan of care was discussed with patient and at bedside, Jemal Tariq MD Advanced Care Planning: Which of the following were discussed: Hospice care: Yes __ No _X_ Therapeutic options: Yes _X_ No __ Advance directives: Yes _X_ No __ Other discussions: Discussed with who?: Patient Voluntary nature of this service was explained to the patient? Yes _x_ No __ Amount of time spent: 20 minutes JEMAL TARIQ MD Mar 26, 2025 17:27
--- NOTE | 2025-03-26 17:51 | NUR ---
BLADDER SCAN 562 ML
[2025-03-26 18:27] LABS: APPEARANCE,URINE CLEAR (CLEAR); GLUCOSE, URINE (UA) NEGATIVE (NEGATIVE); LEUKOCYTE ESTERASE ,URINE NEGATIVE Leu/uL (NEGATIVE); NITRATE,URINE NEGATIVE (NEGATIVE); OCCULT BLOOD,URINE NEGATIVE (NEGATIVE)
[2025-03-26 18:28] LABS: ADD UA MICROSCOPIC NO
[2025-03-26] MEDS ORDERED: PHARMACY COMMUNICATION MISC PRN (18:30)
[2025-03-26 18:31] LABS: CREATININE,URINE RANDOM 33.56 mg/dL (30-135)
--- NOTE | 2025-03-26 19:33 | HMCIMG ---
EXAM: CT Head Without IV contrast. CLINICAL HISTORY: fall, on anticogulation TECHNIQUE: Axial computed tomography images of the head/brain without intravenous contrast. COMPARISON: None provided. FINDINGS: BRAIN: No acute bleed or infarct. Chronic ischemic and atrophic changes. VENTRICLES: No hydrocephalus. ORBITS: The orbits are unremarkable. SINUSES AND MASTOIDS: The paranasal sinuses and mastoid air cells are clear. BONES: No fracture. SOFT TISSUES: Unremarkable. IMPRESSION: No acute bleed or infarct. Chronic ischemic and atrophic changes. /[place]
[2025-03-26 19:39] VITALS: PULSE 104; RESP 19; O2SAT 98
--- NOTE | 2025-03-26 20:19 | NUR ---
REPORT GIVEN TO ARJUN MAYFIELD AT THIS TIME
[2025-03-26 20:45] VITALS: BP 133/58; PULSE 103; RESP 23; TEMP 98
[2025-03-26] MEDS ORDERED: POTA-200 PO (20:50)
[2025-03-26] MEDS ORDERED: METO200T37 PO (20:51)
[2025-03-26] MEDS ORDERED: TORS10TA18 PO (20:53)
[2025-03-26] MEDS ORDERED: BUDE10.7 IH (20:54)
[2025-03-26] MEDS ORDERED: LEVA15HF6 IH (20:54)
[2025-03-26 21:46] LABS: CREATININE 0.9 mg/dL (0.5-1.3); GLOMERULAR FILTR. RATE CALC 88.0 mL/min (>90); GLUCOSE,RANDOM 98.0 mg/dL (70-105); SODIUM SERUM 129.0 mmol/L (136-145); UREA NITROGEN, BLOOD 23.0 mg/dL (7-18)
[2025-03-26 23:59] VITALS: BP 129/79; PULSE 99; RESP 22; TEMP 97.7
[2025-03-27] VITALS (8 sets, daily range): BP systolic 106–126; BP diastolic 64–74; PULSE 50–110; RESP 17–21; TEMP 97.5–98; O2SAT 95–97
[2025-03-27 04:56] LABS: IMMATURE GRANULOCYTE ABSOLUTE 0.06 K/uL (0-1); NUCLEATED RED BLOOD CELLS 0.0 % (0.0-0.19); PLATELET COUNT (AUTO) 238 K/uL (130-400); RED BLOOD CELL COUNT(AUTO) 4.45 MIL/uL (4.50-6.20); RED CELL DISTRIBUTION WIDTH 13.6 % (11.0-15.5); WHITE BLOOD COUNT (AUTO) 11.9 K/uL (4.8-10.8)
[2025-03-27 05:13] LABS: ASPARTATE AMINOTRANSFERASE 19.0 U/L (10-37); CREATININE 1.0 mg/dL (0.5-1.3); GLOMERULAR FILTR. RATE CALC 78.0 mL/min (>90); GLUCOSE,RANDOM 83.0 mg/dL (70-105); SODIUM SERUM 132.0 mmol/L (136-145); TOTAL PROTEIN, SERUM 6.5 g/dL (6.0-8.3); UREA NITROGEN, BLOOD 23.0 mg/dL (7-18)
[2025-03-27] MEDS: BUDESONIDE IH SCH (09:00)
[2025-03-27] MEDS: FORMOTEROL IH SCH (09:00)
[2025-03-27] MEDS: GLYCOPYR IH SCH (09:00)
--- NOTE | 2025-03-27 09:23 | CONS ---
CONSULTATION NOTE Date of Service: Mar 27, 2025 Reason for Consultation: [skin tear to back ] Requesting Physician: [ Dr. Tariq ] HISTORY OF PRESENT ILLNESS: Patient is evaluated at bedside in room 221 for wound care evaluation. The patient is a 75-year-old male with history of advanced cardiomyopathy with LVEF of 30-35%, history of moderate valvular aortic stenosis, history of severe mitral valve regurgitation, COPD, history of severe tricuspid valve regurgitation, hypertension, atrial fibrillation maintained on chronic anticoagulation with Eliquis who presented to the ER for further evaluation of shortness of breadth, significant lower extremity edema as well as intermittent right upper quadrant abdominal pain. reports that patient has been having progressive lower extremity edema ongoing for several days. Patient has been having dyspnea on exertion as well. Patient is followed by Dr. Lackey with Cardiology as outpatient. He is also followed by Dr. Mata as outpatient and he has been upcoming appointment to evaluate for ICD/GOLD STAMPER D therapy evaluation. Patient has a history of advanced cardiomyopathy with valvulopathy. He is currently maintained on 10 mg of torsemide daily. He is on high-dose metoprolol succinate for management of atrial fibrillation as well. He gets short of breath with minimal ambulation, he has significant lower extremity edema which has been worsening as well. Patient has been following up with his PCP for issues with gallbladder related pain. He was previously told that he has cholelithiasis. He gets intermittent right upper quadrant pain. Oral intake has been poor as well. Patient fell about two days ago, and he has been having some back pain involving the left flank and lower back. He denies syncope or hitting his head with the fall. Since the fall, patient developed a small wound in the back for which patient's has been applying band aid to it. Chest x-ray showed mild bilateral infiltrates, abdominal ultrasound showed findings suggestive of acute cholecystitis.Patient was admitted to cardiac telemetry floor for management of acute on chronic systolic heart failure exacerbation in the setting of advanced cardiomyopathy and valvulopathy. Patient was started on broad-spectrum antibiotics due to concerns of acute cholecystitis. REVIEW OF SYSTEMS CONSTITUTIONAL: Denies fever, chills, or fatigue. HEAD/FACE: No signs of trauma. EENT: Denies eye pain, blurred vision, double vision, or light sensitivity. RESPIRATORY: Positive for shortness of breath CARDIOVASCULAR: Denies chest pain, palpitation, syncope, Positive for lower extremity edema GASTROINTESTINAL/ABDOMINAL: Denies abdominal pain, constipation, diarrhea, nausea or vomiting GENITOURINARY: Denies dysuria or hematuria. MUSCULOSKELETAL: Denies joint pain, tenderness, or trauma. INTEGUMENTARY: skin tear to left back NEUROLOGICAL/PSYCH: Denies anxiety, depression, heat or cold intolerance. 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, denies any illicit drug use, resides with at home, since with [employer] FAMILY HISTORY: Pertinent family history Coded Allergies: No Known Drug Allergies (Unverified Allergy, Unknown, 10/01/17) PHYSICAL EXAM EYES: Anicteric. Pupils equal and reactive. HENT: No oral thrush seen, moist Oral mucosa NECK: Supple, no JVD or thyromegaly. LUNGS: Good air entry. No rales, no rhonchi. CARDIOVASCULAR: S1, S2 regular. No murmur heard.+ 3 edema to bilateral lower extremities ABDOMEN: Soft, non tender, bowel sounds present, no organomegaly CENTRAL NERVOUS SYSTEM: Awake, alert, oriented x 3. No focal deficits. SKIN: skin tear to left lower back noted with granulation and periwound bruising, Skin tear to right elbow noted with granulation with minimal serous drainage LYMPHATICS: No peripheral lymphadenopathy MUSCULOSKELETAL: No joint swelling, erythema or tenderness. EXTREMITIES: No cyanosis or clubbing BACK: No deformity GENITOURINARY: No dysuria or hematuria Vital Sign (Last 24 Hours) 03/26/25 03/27/25 03/27/25 20:40 06:40 07:00 Temp 97.5 Pulse 103 Resp 20 B/P (MAP) 126/71 Pulse Ox 96 O2 Delivery Room Air O2 Flow Rate 0 FiO2 21 Intake & Output (last 24hrs) 03/26/25 03/26/25 03/27/25 15:00 23:00 07:00 Output Total 5300 ml Balance -5300 ml LABS: Laboratory: Test 03/27/25 04:25 03/26/25 18:15 03/26/25 13:14 03/26/25 13:12 Range/Units White Blood Count 11.9 H 4.8-10.8 K/uL Red Blood Count 4.45 L 4.50-6.20 MIL/uL Hemoglobin 14.5 14.0-18.0 g/dL Hematocrit 42.3 42-54 % Mean Corpuscular Volume 95.1 79-99 fL Mean Corpuscular Hemoglobin 32.6 27.0-33.0 pg Mean Corpuscular Hemoglobin Concent 34.3 32.0-36.0 g/dL Red Cell Distribution Width 13.6 11.0-15.5 % Platelet Count 238 130-400 K/uL Mean Platelet Volume 9.0 7.5-10.5 fL Immature Granulocyte % (Auto) 0.5 0-1 % Neutrophils (%) (Auto) 80.0 H 40.0-77.0 % Lymphocytes (%) (Auto) 9.2 L 21.0-51.0 % Monocytes (%) (Auto) 9.5 3.0-13.0 % Eosinophils (%) (Auto) 0.5 0.0-8.0 % Basophils (%) (Auto) 0.3 0.0-5.0 % Neutrophils # (Auto) 9.5 H 1.8-7.7 K/uL Lymphocytes # (Auto) 1.1 1.0-4.8 K/uL Monocytes # (Auto) 1.1 H 0.1-1.0 K/uL Eosinophils # (Auto) 0.06 0.00-0.70 K/uL Basophils # (Auto) 0.04 0.00-0.20 K/uL Absolute Immature Granulocyte (auto 0.06 0-1 K/uL Nucleated Red Blood Cells 0.0 0.0-0.19 % Sodium Level 132 L 136-145 mmol/L Potassium Level 3.8 3.5-5.1 mmol/L Chloride Level 93 L 101-111 mmol/L Carbon Dioxide Level 31 21-32 mmol/L Blood Urea Nitrogen 23 H 7-18 mg/dL Creatinine 1.0 0.5-1.3 mg/dL Glomerular Filtration Rate Calc 78 >90 mL/min Random Glucose 83 70-105 mg/dL Total Calcium 8.8 8.5-10.1 mg/dL Magnesium Level 1.90 1.80-2.40 mg/dL Total Bilirubin 2.1 H 0.2-1.0 mg/dL Aspartate Amino Transf (AST/SGOT) 19 10-37 U/L Alanine Aminotransferase (ALT/SGPT) 21 12-78 U/L Alkaline Phosphatase 67 50-136 U/L B-Type Natriuretic Peptide 1310 H 0-100 pg/mL Total Protein 6.5 6.0-8.3 g/dL Albumin 3.2 L 3.5-5.0 g/dL Urine Color LIGHT-YELLOW YELLOW Urine Appearance CLEAR CLEAR Urine pH 5.5 5.0-8.0 Urine Specific [place] 1.008 1.001-1.031 Urine Protein NEGATIVE NEGATIVE mg/dL Urine Glucose (UA) NEGATIVE NEGATIVE mg/dL Urine Ketones NEGATIVE NEGATIVE mg/dL Urine Occult Blood NEGATIVE NEGATIVE Urine Nitrate NEGATIVE NEGATIVE Urine Bilirubin NEGATIVE NEGATIVE mg/dL Urine Urobilinogen 0.2 0.2-1.0 mg/dL Urine Leukocyte Esterase NEGATIVE NEGATIVE Sea/uL Urine Random Creatinine 33.56 30-135 mg/dL Urine Random Sodium 49 40-220 mmol/l White Cell Morphology Comment See comments Troponin I High Sensitivity 14 4-75 ng/L Erythrocyte Sedimentation Rate 27 H 0-20 MM/HR Prothrombin Time 14.1 H 9.6-11.6 SEC Prothromb Time International Ratio 1.37 H 0.85-1.15 Activated Partial Thromboplast Time 36.8 H 26.3-35.5 SEC Hemoglobin A1c 5.5 4.0-6.0 % Estimated Average Glucose (eAG) 111 70-126 mg/dL Lactate Dehydrogenase 329 H 81-234 U/L C-Reactive Protein, Quantitative 16.90 H 0.5-3.0 mg/L Procalcitonin < 0.05 L 0.05-0.5 ng/mL Thyroid Stimulating Hormone (TSH) 1.03 0.36-3.74 uIU/mL DIAGNOSTICS / RADIOLOGY: [ ] PROBLEM LIST : Medical Problems: Fall Unspecified open wound of left lower back Unspecified open wound of right elbow PLAN: Wound care to Left lower back and right elbow wounds-Cleanse with normal saline, pat dry, apply Triple antibiotic ointment, cover with adaptic/Vaseline gauze, gauze, and secure with tape change daily and prn Keep wounds clean and dry Offloading/reposition q 2 hours Continue IV antibiotics and Comorbidities per primary care team Further Management per hospital course. Thank You for the consult and allowing us to participate in the care of this patient. BAYLEE GLORIA Mar 27, 2025 09:23
--- NOTE | 2025-03-27 10:20 | CONS ---
Cardiac Consult Note CONSULT NOTE DATE OF SERVICE: Mar 26, 2025 at 12:51 REFERRING PROVIDER: RADHA BATISTA MD REASON FOR CONSULT: Atrial fibrillation rapid ventricular response Acute on chronic congestive heart failure HPI: Patient came into the hospital after a fall at home and worsening edema and shortness of breath in addition to palpitations. Patient had a fall at home on Sunday morning suffered some significant trauma to the left posterior back side on his ribcage root causing some ecchymosis and such. The patient states he has had a lot of falls at home as his legs have been very swollen and he has trouble controlling them. Patient does have a history of a cardiomyopathy and chronic atrial fibrillation who has been evaluated for AV node ablation and placement of Bi V AICD. He is tentatively scheduled for that on April 2025. When patient arrived here he was significantly tachycardic and volume overloaded and since he has been receiving IV Lasix he has lost approximately 5 L of fluid. Patient's diuretic dosing at home includes torsemide at 10 mg daily[address] Looking at Dr. Lackey's last note he has not tolerated sodium glucose transport to inhibitors ARB or PAYAL inhibitors. He has not tolerated spironolactone. He has significant issues with hypotensive events with the therapies. He has been maintained on Toprol at 200 mg daily in addition to Eliquis. Patient has also been intolerant to Entresto therapy. He does have a history of COPD. They have also been some complaints of right upper quadrant pain and upon evaluation and scans that were performed he was noted to have cholecystitis as well. Surgical evaluation has been requested by primary team. ROS: No fever, headache, chest pain, abdominal pain, nausea, vomiting, or diarrhea. 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 HEENT: Normocephalic, atraumatic. CARDIAC: Positive S1 and S2 borderline tachycardic irregularly irregular. No murmurs. LUNGS: Clear to auscultation bilaterally. ABDOMEN: Bowel sounds present, soft, nontender. EXTREMITIES: No edema bilaterally. NEUROLOGIC: Cranial nerves 2-12 grossly intact. PSYCHIATRIC: Calm. 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 And patient has demonstrated an intolerance to multiple medications which has been helpful in the heart failure situation so we will not reinitiate those therapies. We will continue with the beta romel for heart rate control and monitor closely considering the patient is in heart failure. Patient never had feels much improved this morning with IV diuresis and loss of the proximally 5 L. In regards to patient's atrial fibrillation we will continue with metoprolol and diuresis and we will notify Dr. Mata about patient's admission. We have placed Eliquis on hold secondary to recent trauma and do also want to hold any Lovenox but would like to reinitiate Eliquis in the next 24-36 hours of H&H is hold. In regards to presumed nonischemic cardiomyopathy I would like to repeat a 2D echocardiogram to assess left ventricular size and function as well as assess ejection fraction once more as the patient's last echo was back in July of this year. Reviewing patient's clinic records I do not see any reports involving angiography but mainly noninvasive studies like Lexiscan to assess overall atherosclerotic burden of his coronary vessels. It may be reasonable while patient is here once he is diuresed to consider performing a coronary CT angiogram to assess patency of little traverse coronary vessels and rule out any chance of possible ischemic cardiomyopathy which potentially could be improved if revascularization is optimized. Patient will be seen through the weekend we will continue IV Lasix and beta blockade for now and we will reinitiate Eliquis at the discretion of Cardiology tomorrow if H&H has remained stable and no further studies or invasive procedures are planned. In regards to preoperative assessment prior to noncardiac surgery patient is considered extremely high-risk considering his significantly elevated volume status and heart failure so would not be deemed a candidate for surgery currently and would instead treat conservatively with no plans on surgical intervention currently. Vital Signs 03/26/25 03/26/25 03/26/25 03/26/25 12:54 14:11 16:50 17:24 Temp 97.3 97.5 97.2 Pulse 86 102 90 109 Resp 20 20 20 20 B/P (MAP) 141/71 100/84 118/83 Pulse Ox 99 99 99 O2 Delivery Room Air Room Air* N/A Room Air Room Air* O2 Flow Rate 0 0 FiO2 21 21 21 03/26/25 03/26/25 03/26/25 03/26/25 19:39 19:39 19:59 20:30 Temp 98.4 Pulse 104 104 104 102 Resp 19 19 19 20 B/P (MAP) 123/74 117/75 Pulse Ox 96 96 O2 Delivery N/A Room Air Room Air* Room Air* O2 Flow Rate 0.0 0 0 FiO2 21 21 21 03/26/25 03/26/25 03/26/25 03/27/25 20:40 20:45 23:59 04:00 Temp 98.1 97.7 98.1 Pulse 103 99 110 Resp 23 22 21 B/P (MAP) 133/58 129/79 114/69 Pulse Ox 94 92 91 O2 Delivery Room Air* Room Air Room Air Room Air O2 Flow Rate 0 FiO2 21 03/27/25 03/27/25 06:40 07:00 Temp 97.5 Pulse 99 103 Resp 18 20 B/P (MAP) 126/71 Pulse Ox 96 O2 Delivery N/A Room Air Room Air FiO2 21 Laboratory Tests Test 03/26/25 13:12 03/26/25 13:14 03/26/25 18:15 03/26/25 20:53 Erythrocyte Sedimentation Rate 27 MM/HR (0-20) Prothrombin Time 14.1 SEC (9.6-11.6) Prothromb Time International Ratio 1.37 (0.85-1.15) Activated Partial Thromboplast Time 36.8 SEC (26.3-35.5) Hemoglobin A1c 5.5 % (4.0-6.0) Estimated Average Glucose (eAG) 111 mg/dL (70-126) Lactate Dehydrogenase 329 U/L (81-234) C-Reactive Protein, Quantitative 16.90 mg/L (0.5-3.0) Procalcitonin < 0.05 ng/mL (0.05-0.5) Thyroid Stimulating Hormone (TSH) 1.03 uIU/mL (0.36-3.74) White Blood Count 14.7 K/uL (4.8-10.8) Red Blood Count 4.76 MIL/uL (4.50-6.20) Hemoglobin 15.4 g/dL (14.0-18.0) 16.2 g/dL (14.0-18.0) Hematocrit 46.8 % (42-54) 48.4 % (42-54) Mean Corpuscular Volume 98.3 fL (79-99) Mean Corpuscular Hemoglobin 32.4 pg (27.0-33.0) Mean Corpuscular Hemoglobin Concent 32.9 g/dL (32.0-36.0) Red Cell Distribution Width 13.7 % (11.0-15.5) Platelet Count 270 K/uL (130-400) Mean Platelet Volume 9.1 fL (7.5-10.5) Immature Granulocyte % (Auto) 1.2 % (0-1) Neutrophils (%) (Auto) 81.6 % (40.0-77.0) Lymphocytes (%) (Auto) 7.5 % (21.0-51.0) Monocytes (%) (Auto) 8.8 % (3.0-13.0) Eosinophils (%) (Auto) 0.5 % (0.0-8.0) Basophils (%) (Auto) 0.4 % (0.0-5.0) Neutrophils # (Auto) 12.0 K/uL (1.8-7.7) Lymphocytes # (Auto) 1.1 K/uL (1.0-4.8) Monocytes # (Auto) 1.3 K/uL (0.1-1.0) Eosinophils # (Auto) 0.07 K/uL (0.00-0.70) Basophils # (Auto) 0.06 K/uL (0.00-0.20) Absolute Immature Granulocyte (auto 0.17 K/uL (0-1) Nucleated Red Blood Cells 0.0 % (0.0-0.19) White Cell Morphology Comment See comments Sodium Level 127 mmol/L (136-145) 129 mmol/L (136-145) Potassium Level 5.3 mmol/L (3.5-5.1) 4.1 mmol/L (3.5-5.1) Chloride Level 91 mmol/L (101-111) 94 mmol/L (101-111) Carbon Dioxide Level 27 mmol/L (21-32) 23 mmol/L (21-32) Blood Urea Nitrogen 21 mg/dL (7-18) 23 mg/dL (7-18) Creatinine 1.0 mg/dL (0.5-1.3) 0.9 mg/dL (0.5-1.3) Glomerular Filtration Rate Calc 78 mL/min (>90) 88 mL/min (>90) Random Glucose 87 mg/dL (70-105) 98 mg/dL (70-105) Total Calcium 9.0 mg/dL (8.5-10.1) 8.6 mg/dL (8.5-10.1) Magnesium Level 2.00 mg/dL (1.80-2.40) 1.80 mg/dL (1.80-2.40) Total Bilirubin 1.9 mg/dL (0.2-1.0) Aspartate Amino Transf (AST/SGOT) 25 U/L (10-37) Alanine Aminotransferase (ALT/SGPT) 24 U/L (12-78) Alkaline Phosphatase 76 U/L (50-136) Troponin I High Sensitivity 14 ng/L (4-75) B-Type Natriuretic Peptide 1190 pg/mL (0-100) Total Protein 7.3 g/dL (6.0-8.3) Albumin 3.7 g/dL (3.5-5.0) Urine Color LIGHT-YELLOW (YELLOW) Urine Appearance CLEAR (CLEAR) Urine pH 5.5 (5.0-8.0) Urine Specific [place] 1.008 (1.001-1.031) Urine Protein NEGATIVE mg/dL (NEGATIVE) Urine Glucose (UA) NEGATIVE mg/dL (NEGATIVE) Urine Ketones NEGATIVE mg/dL (NEGATIVE) Urine Occult Blood NEGATIVE (NEGATIVE) Urine Nitrate NEGATIVE (NEGATIVE) Urine Bilirubin NEGATIVE mg/dL (NEGATIVE) Urine Urobilinogen 0.2 mg/dL (0.2-1.0) Urine Leukocyte Esterase NEGATIVE Sea/uL Urine Random Creatinine 33.56 mg/dL (30-135) Urine Random Sodium 49 mmol/l (40-220) Test 03/27/25 04:25 White Blood Count 11.9 K/uL (4.8-10.8) Red Blood Count 4.45 MIL/uL (4.50-6.20) Hemoglobin 14.5 g/dL (14.0-18.0) Hematocrit 42.3 % (42-54) Mean Corpuscular Volume 95.1 fL (79-99) Mean Corpuscular Hemoglobin 32.6 pg (27.0-33.0) Mean Corpuscular Hemoglobin Concent 34.3 g/dL (32.0-36.0) Red Cell Distribution Width 13.6 % (11.0-15.5) Platelet Count 238 K/uL (130-400) Mean Platelet Volume 9.0 fL (7.5-10.5) Immature Granulocyte % (Auto) 0.5 % (0-1) Neutrophils (%) (Auto) 80.0 % (40.0-77.0) Lymphocytes (%) (Auto) 9.2 % (21.0-51.0) Monocytes (%) (Auto) 9.5 % (3.0-13.0) Eosinophils (%) (Auto) 0.5 % (0.0-8.0) Basophils (%) (Auto) 0.3 % (0.0-5.0) Neutrophils # (Auto) 9.5 K/uL (1.8-7.7) Lymphocytes # (Auto) 1.1 K/uL (1.0-4.8) Monocytes # (Auto) 1.1 K/uL (0.1-1.0) Eosinophils # (Auto) 0.06 K/uL (0.00-0.70) Basophils # (Auto) 0.04 K/uL (0.00-0.20) Absolute Immature Granulocyte (auto 0.06 K/uL (0-1) Nucleated Red Blood Cells 0.0 % (0.0-0.19) Sodium Level 132 mmol/L (136-145) Potassium Level 3.8 mmol/L (3.5-5.1) Chloride Level 93 mmol/L (101-111) Carbon Dioxide Level 31 mmol/L (21-32) Blood Urea Nitrogen 23 mg/dL (7-18) Creatinine 1.0 mg/dL (0.5-1.3) Glomerular Filtration Rate Calc 78 mL/min (>90) Random Glucose 83 mg/dL (70-105) Total Calcium 8.8 mg/dL (8.5-10.1) Magnesium Level 1.90 mg/dL (1.80-2.40) Total Bilirubin 2.1 mg/dL (0.2-1.0) Aspartate Amino Transf (AST/SGOT) 19 U/L (10-37) Alanine Aminotransferase (ALT/SGPT) 21 U/L (12-78) Alkaline Phosphatase 67 U/L (50-136) B-Type Natriuretic Peptide 1310 pg/mL (0-100) Total Protein 6.5 g/dL (6.0-8.3) Albumin 3.2 g/dL (3.5-5.0) Current Medications Medications Dose Ordered Sig/Dixie Route PRN Reason Start Time Stop Time Status Last Admin Morphine Sulfate 2 mg ONCE ONCE IVP 03/26/25 13:00 03/26/25 13:02 DC Ondansetron HCl 4 mg ONCE ONCE IVP 03/26/25 13:00 03/26/25 13:02 DC Acetaminophen 1,000 mg ONCE ONCE PO 03/26/25 15:00 03/26/25 15:01 DC 03/26/25 14:44 Acetaminophen 500 mg STK-MED ONCE .ROUTE 03/26/25 14:39 03/26/25 14:39 DC Furosemide 40 mg ONCE ONCE IV 03/26/25 15:00 03/26/25 15:01 DC 03/26/25 16:57 Furosemide 40 mg BID IV 03/26/25 21:00 04/25/25 20:59 03/26/25 21:51 Pantoprazole Sodium 40 mg DAILY PO 03/27/25 09:00 04/26/25 08:59 Piperacillin Sod/ Tazobactam Sod 3.375 gm Q8H IVPB 03/26/25 16:30 04/05/25 16:29 03/27/25 00:20 Sodium Chloride 50 ml AD IV 03/26/25 16:30 03/26/25 16:21 DC Magnesium Sulfate 50 ml @ 0 mls/hr PROTOCOL IV 03/26/25 16:30 04/25/25 16:29 Enoxaparin Sodium 1 unit BID SQ 03/26/25 21:00 03/26/25 17:26 DC Metoprolol Succinate 200 mg DAILY PO 03/27/25 09:00 04/26/25 08:59 Home Med BID IH 03/27/25 09:00 04/26/25 08:59 Neomycin/ Polymyxin/ Bacitracin left lower back and right elbow DAILY11 TP 03/27/25 11:00 11/30/25 10:59 Reported Medications Levalbuterol Tartrate (Xopenex Hfa) 45 Mcg/Actuation Hfa.aer.ad, 2 PUFF IH Q4HPRN PRN for wheezing, #15 GM 0 Refills 03/26/25 Budesonide/Glycopyr/Formoterol (Breztri Aerosphere Inhaler) 160 Mcg-9 Mcg-4.8 Mcg/Actuation Hfa.aer.ad, 2 PUFF IH BID for 30 Days, #10.7 GM 0 Refills 03/26/25 Torsemide (Torsemide) 10 Mg Tablet, 1 TAB PO DAILY for 30 Days, #30 TAB 0 Refills 03/26/25 Metoprolol Succinate (Metoprolol Succinate) 200 Mg Tab.er.24h, 1 TAB PO DAILY for 30 Days, #30 TAB 0 Refills 03/26/25 Potassium Chloride (Potassium Chloride) 10 Meq Tab.er.prt, 1 TAB PO DAILY for 30 Days, #30 TAB 0 Refills 03/26/25 Tiotropium Br/Olodaterol HCl (Stiolto Respimat Inhal [place]) 4 Gm Mist.inhal, 2 PUFF IH DAILY 02/02/21 Acetaminophen (Tylenol Extra Strength) 500 Mg Tablet, 500 MG PO AD PRN for PAIN LEVEL 1 TO 5, TAB 02/02/21 Diltiazem HCl (Diltiazem ER) 300 Mg Capsule.er, 300 MG PO DAILY, CAP 02/02/21 Apixaban (Eliquis) 5 Mg Tablet, 5 MG PO BID, TAB 02/02/21 Losartan Potassium (Losartan Potassium) 25 Mg Tablet, 25 MG PO DAILY, TAB 02/02/21 Dronedarone Hydrochloride (Multaq) 400 Mg Tablet, 400 MG PO BID, TAB 02/02/21 RADHA BATISTA MD Mar 27, 2025 10:20
--- NOTE | 2025-03-27 10:31 | NUR ---
[facility] Consult: Patient assessed by wound healing team. See wound assessment. Assessment and recommendations provided to primary nurse. Education provided. Addendum: 03/27/25 at 1131 by JEZ TAVAREZ RN RN/ Amended: Links added.
[2025-03-27] MEDS: NEOMY SULF/BACITRAC ZN/POLY OINT 30GM TUBE TP SCH (12:24)
[2025-03-27] MEDS ORDERED: PHARMACY COMMUNICATION MISC SCH (12:30)
--- NOTE | 2025-03-27 14:52 | PN ---
[facility] PROGRESS NOTE Date of Service: Mar 27, 2025 Time of Service: 14:51 SUBJECTIVE: [ ] 03/27/2025: Patient was seen and evaluated bedside, case discussed with RN and no acute overnight events. Patient says he is feeling better, denies chest pain, shortness of breath, palpitations, nausea and vomiting. Morning lab showed sodium trending up to 132, potassium trending down to 3.8, BNP trending up to 1310. Patient is currently on clear liquids, waiting for cardiac clearance before surgery for acute cholecystitis. Continue IV furosemide 40 mg b.i.d., 100 mg daily p.o., Zosyn Q 8. General surgery, Cardiology, Nephrology on board and we will follow up with the recommendations. REVIEW OF SYSTEMS CONSTITUTIONAL: Denies fevers or chills, reports having malaise and poor oral intake NEUROLOGICAL: Denies headache, amaurosis fugax, motor weakness, sensory deficit, vertigo/spinning sensation, gait abnormalities, or tremors. ENT: No hearing loss, otalgia, otorrhea, rhinitis, rhinorrhea, hoarseness, or sore throat. CARDIOVASCULAR: Reports having significant lower extremity edema, history of heart failure, denies active chest pain PULMONARY: Reports having dyspnea on exertion SLEEP: Denies morning headaches, daytime somnolence or napping. Denies difficulty falling asleep, staying asleep, waking from sleep. Denies knowledge of snoring. GASTROINTESTINAL: Reports having poor oral intake, denies nausea or vomiting GENITOURINARY: Denies frequency, urgency, nocturia, hematuria or incontinence (Storage/Irritative symptoms.) Low urinary stream, straining to void, urinary intermittency or hesitancy, splitting of the voiding stream, terminal dribbling. ENDOCRINOLOGIC: Denies polyuria, polydipsia, polyphagia or heat/cold intolerances. HEMATOLOGIC: Denies thrombophilia/previous clots, or coagulopathy/bleeding disorders. ONCOLOGIC: Denies personal history of malignancy. DERMATOLOGIC: Denies rashes or pruritus. PSYCHIATRIC: Denies any suicidal or homicidal ideation. Denies hallucinations. PHYSICAL EXAM GENERAL APPEARANCE: The patient is awake, alert, and oriented, in no acute cardiopulmonary distress, appears debilitated NEUROLOGICAL: Cranial nerves II-XII grossly intact. Motor is 5/5 in bilateral upper and lower extremities proximal to distal. No sensory deficits. HEENT: Face is symmetric. Pupils are equal and reactive. Extraocular movements are intact. NECK: Supple. No JVD. No thyromegaly. No submental, submandibular, pre- /postauricular, occipital or supraclavicular lymphadenopathy. CHEST: Normal chest expansion. No Telemetry. LUNGS: minimal crackles noted of the bilateral lung bases CARDIOVASCULAR: Regular. S1 and S2 normal. No appreciable rubs, murmurs or gallops. ABDOMEN: Soft, nontender, and nondistended. There is no rebound, voluntary guarding, or rigidity. : Deferred. No Hough. EXTREMITIES: 3+ pitting edema noted of the bilateral lower extremities SKIN: skin tear noted of the lower back Vital Signs (last 8hr) Date Time Temp Pulse Resp B/P (MAP) Pulse Ox O2 Delivery O2 Flow Rate FiO2 03/27/25 11:45 102 18 N/A Room Air 21 03/27/25 11:00 97.5 101 20 117/74 97 Room Air 03/27/25 08:00 Room Air* 0 21 03/27/25 07:00 97.5 103 20 126/71 96 Room Air LABS: Laboratory: Test 03/27/25 04:25 03/26/25 18:15 03/26/25 13:14 03/26/25 13:12 Range/Units White Blood Count 11.9 H 4.8-10.8 K/uL Red Blood Count 4.45 L 4.50-6.20 MIL/uL Hemoglobin 14.5 14.0-18.0 g/dL Hematocrit 42.3 42-54 % Mean Corpuscular Volume 95.1 79-99 fL Mean Corpuscular Hemoglobin 32.6 27.0-33.0 pg Mean Corpuscular Hemoglobin Concent 34.3 32.0-36.0 g/dL Red Cell Distribution Width 13.6 11.0-15.5 % Platelet Count 238 130-400 K/uL Mean Platelet Volume 9.0 7.5-10.5 fL Immature Granulocyte % (Auto) 0.5 0-1 % Neutrophils (%) (Auto) 80.0 H 40.0-77.0 % Lymphocytes (%) (Auto) 9.2 L 21.0-51.0 % Monocytes (%) (Auto) 9.5 3.0-13.0 % Eosinophils (%) (Auto) 0.5 0.0-8.0 % Basophils (%) (Auto) 0.3 0.0-5.0 % Neutrophils # (Auto) 9.5 H 1.8-7.7 K/uL Lymphocytes # (Auto) 1.1 1.0-4.8 K/uL Monocytes # (Auto) 1.1 H 0.1-1.0 K/uL Eosinophils # (Auto) 0.06 0.00-0.70 K/uL Basophils # (Auto) 0.04 0.00-0.20 K/uL Absolute Immature Granulocyte (auto 0.06 0-1 K/uL Nucleated Red Blood Cells 0.0 0.0-0.19 % Sodium Level 132 L 136-145 mmol/L Potassium Level 3.8 3.5-5.1 mmol/L Chloride Level 93 L 101-111 mmol/L Carbon Dioxide Level 31 21-32 mmol/L Blood Urea Nitrogen 23 H 7-18 mg/dL Creatinine 1.0 0.5-1.3 mg/dL Glomerular Filtration Rate Calc 78 >90 mL/min Random Glucose 83 70-105 mg/dL Total Calcium 8.8 8.5-10.1 mg/dL Magnesium Level 1.90 1.80-2.40 mg/dL Total Bilirubin 2.1 H 0.2-1.0 mg/dL Aspartate Amino Transf (AST/SGOT) 19 10-37 U/L Alanine Aminotransferase (ALT/SGPT) 21 12-78 U/L Alkaline Phosphatase 67 50-136 U/L B-Type Natriuretic Peptide 1310 H 0-100 pg/mL Total Protein 6.5 6.0-8.3 g/dL Albumin 3.2 L 3.5-5.0 g/dL Urine Color LIGHT-YELLOW YELLOW Urine Appearance CLEAR CLEAR Urine pH 5.5 5.0-8.0 Urine Specific [place] 1.008 1.001-1.031 Urine Protein NEGATIVE NEGATIVE mg/dL Urine Glucose (UA) NEGATIVE NEGATIVE mg/dL Urine Ketones NEGATIVE NEGATIVE mg/dL Urine Occult Blood NEGATIVE NEGATIVE Urine Nitrate NEGATIVE NEGATIVE Urine Bilirubin NEGATIVE NEGATIVE mg/dL Urine Urobilinogen 0.2 0.2-1.0 mg/dL Urine Leukocyte Esterase NEGATIVE NEGATIVE Sea/uL Urine Random Creatinine 33.56 30-135 mg/dL Urine Random Sodium 49 40-220 mmol/l White Cell Morphology Comment See comments Troponin I High Sensitivity 14 4-75 ng/L Erythrocyte Sedimentation Rate 27 H 0-20 MM/HR Prothrombin Time 14.1 H 9.6-11.6 SEC Prothromb Time International Ratio 1.37 H 0.85-1.15 Activated Partial Thromboplast Time 36.8 H 26.3-35.5 SEC Hemoglobin A1c 5.5 4.0-6.0 % Estimated Average Glucose (eAG) 111 70-126 mg/dL Lactate Dehydrogenase 329 H 81-234 U/L C-Reactive Protein, Quantitative 16.90 H 0.5-3.0 mg/L Procalcitonin < 0.05 L 0.05-0.5 ng/mL Thyroid Stimulating Hormone (TSH) 1.03 0.36-3.74 uIU/mL Current Medications Medications (Trade) Dose Ordered Sig/Dixie Route PRN Reason Start Time Stop Time Status Last Admin Dose Admin Acetaminophen (TYLenol 325MG TAB) 650 mg Q6H PRN PO MILD PAIN (1-3) 03/26/25 16:30 04/25/25 16:29 Chlordiazepoxide HCl (LIBrium 25 MG CAP) 25 mg Q6H PRN PO ALCOHOL WITHDRAWAL PROTOCOL 03/26/25 18:30 04/02/25 18:29 Enoxaparin Sodium (Lovenox (Pharmacy To Dose)) 1 unit BID SQ 03/26/25 21:00 03/26/25 17:26 DC Furosemide (LASix 40MG VIAL) 40 mg BID IV 03/26/25 21:00 04/25/25 20:59 03/27/25 10:40 40 MG Home Med (Home Medication) BID IH 03/27/25 09:00 04/26/25 08:59 Ipratropium [place] (AtrovENT UD) 0.5 mg Q6H PRN IH SHORTNESS OF BREATH 03/26/25 16:30 04/25/25 16:29 03/26/25 19:39 0.5 MG Magnesium Sulfate 50 ml @ 0 mls/hr PROTOCOL IV 03/26/25 16:30 04/25/25 16:29 Metoprolol Succinate (TopROL XL) 200 mg DAILY PO 03/27/25 09:00 04/26/25 08:59 03/27/25 10:41 200 MG Neomycin/ Polymyxin/ Bacitracin (Triple Antibiotic Ointment) left lower back and right elbow DAILY11 TP 03/27/25 11:00 04/26/25 10:59 03/27/25 12:24 1 APPL Ondansetron HCl (zoFRAN 4MG INJ) 4 mg Q6H PRN IVP NAUSEA/VOMITING 03/26/25 16:30 04/25/25 16:29 Pantoprazole Sodium (PROTonix 40MG TAB) 40 mg DAILY PO 03/27/25 09:00 04/26/25 08:59 03/27/25 10:40 40 MG Pharmacy Profile Note (Pharmacy Communication) 1 each ONCE MISC 03/27/25 12:30 03/27/25 12:32 DC Pharmacy Profile Note (Pharmacy Communication) 1 each PROTOCOL PRN MISC ETOH Withdrawal Score changes 03/26/25 18:30 04/02/25 18:29 Piperacillin Sod/ Tazobactam Sod (Zosyn 3.375gm+NS 50ml) 3.375 gm Q8H IVPB 03/26/25 16:30 03/27/25 12:31 DC 03/27/25 10:40 3.375 GM Piperacillin Sod/ Tazobactam Sod (Zosyn 3.375gm+NS 50ml) 3.375 gm Q8H IVPB 03/27/25 19:30 04/06/25 19:29 Potassium Chloride 100 ml @ 100 mls/hr AD PRN IV POTASSIUM PROTOCOL 03/26/25 22:30 04/25/25 22:29 Potassium Chloride (K-Dur/Klor-Con 20meq) 20 meq AD PRN PO POTASSIUM PROTOCOL 03/26/25 22:30 04/25/25 22:29 Potassium Chloride (KCl 10% Elixir 20meq/15ml) 20 meq AD PRN PO POTASSIUM PROTOCOL 03/26/25 22:30 04/25/25 22:29 Sodium Chloride (NS 50ml) 50 ml AD IV 03/26/25 16:30 03/26/25 16:21 DC DIAGNOSTICS / RADIOLOGY: [place] [address] IMAGING REPORT Signed PATIENT: NURIS SENIOR MR#: [id number] : 1950 SEX: M AGE: 75 LOCATION: [facility] ORDER 00 STATUS: [facility] REPORT#: [id number] SERVICE 58 REASON: RIGHT UPPER QUADRANT PAIN ORDERING PHYSICIAN: FRANCIA MENDOZA MOLD PARTER PROCEDURE: ABDRUQLTD - US ABDOMINAL RUQ\LTD EXAM: US Abdomen, Right Upper Quadrant. CLINICAL HISTORY: RIGHT UPPER QUADRANT PAIN TECHNIQUE: Right upper quadrant sonography performed with image documentation. COMPARISON: None provided. FINDINGS: LIVER: The enlarged liver measures 16.4 cm with increased echogenicity suggestive of hepatic steatosis. No mass. GALLBLADDER: The gallbladder is distended with stones and wall thickening (6 mm). COMMON BILE DUCT: Within normal limits in size (6 mm). PANCREAS: The visualized pancreas appears within normal limits. The distal pancreas is obscured by bowel gas. RIGHT KIDNEY: Measures 9.1 x 4.8 x 3.7 cm. Normal renal contours. No renal mass or calculus. No hydronephrosis. IMPRESSION: 1. Cholelithiasis with gallbladder wall thickening, suggesting acute cholecystitis. 2. Hepatomegaly with increased echogenicity, consistent with hepatic steatosis. /[place] DICTATED BY: SERGIO FONSECA MD DATE: 03/26/251701 ELECTRONICALLY SIGNED BY: SERGIO FONSECA MD DATE: 03/26/251701 [place] [address] IMAGING REPORT Signed PATIENT: NURIS SENIOR MR#: [id number] : 1950 SEX: M AGE: 75 LOCATION: [facility] ORDER 00 STATUS: [facility] REPORT#: [id number] SERVICE 58 REASON: SHORTNESS A BREATH ORDERING PHYSICIAN: FRANCIA MENDOZA MOLD PARTER PROCEDURE: CXR1VW - CHEST 1VW EXAM: CR Chest, 1 View. CLINICAL HISTORY: SHORTNESS A BREATH COMPARISON: None provided. FINDINGS: LUNGS: There is no mass, infiltrate, or acute pulmonary abnormality. Mild left midlung linear atelectasis versus scarring. PLEURAL SPACES: No evidence of pleural effusion or pneumothorax. MEDIASTINUM: The cardiomediastinal silhouette is within normal limits. Mild aortic arch calcific atherosclerosis. Right chest port and intact catheter in place BONES: No acute osseous abnormality. IMPRESSION: No acute cardiopulmonary pathology is evident. /[place] DICTATED BY: DOUG RAHMAN MD DATE: 03/26/251657 ELECTRONICALLY SIGNED BY: DOUG RAHMAN MD DATE: 03/26/251657 [place] [id number] [place] [address] IMAGING REPORT Signed PATIENT: NURIS SENIOR MR#: [id number] : 1950 SEX: M AGE: 75 LOCATION: [facility] ORDER 1301 STATUS: REG ER REPORT#: [id number] SERVICE 1259 REASON: LEFT LATERAL LUMBAR PAIN STATUS POST FALL TWO DAYS AGO ORDERING PHYSICIAN: FRANCIA MENDOZA MOLD PARTER PROCEDURE: LUMB 2 3VW - LUMBAR SPINE 2-3VWS EXAM: CR Lumbar Spine, 3 View. CLINICAL HISTORY: LEFT LATERAL LUMBAR PAIN STATUS POST FALL TWO DAYS AGO COMPARISON: None provided. FINDINGS: BONES: No acute fracture or aggressive appearing osseous lesion. ALIGNMENT: Alignment is within normal limits. No significant scoliosis. Straightening the normal lumbar lordosis. Mild loss of the disc heights at L3-S1. Mild to moderate facet arthrosis L4-S1. Marked abdominal aorta and bilateral common iliac artery calcific atherosclerosis without evidence of aneurysm. The bony structures appear somewhat demineralized. SOFT TISSUES: The soft tissues are unremarkable. IMPRESSION: 1. No acute osseous injury. 2. Straightening of normal lumbar lordosis. 3. Mild disc height loss at L3-S1. 4. Mild to moderate facet arthrosis L4-S1. 5. Marked calcific atherosclerosis of abdominal aorta and bilateral common iliac arteries without aneurysm. 6. Demineralization of bony structures. /[place] DICTATED BY: DOUG RAHMAN MD DATE: 03/26/251658 ELECTRONICALLY SIGNED BY: DOUG RAHMAN MD DATE: 03/26/251658 [facility] [address] [place] [address] IMAGING REPORT Addendum PATIENT: NURIS SENIOR MR#: [id number] : 1950 SEX: M AGE: 75 LOCATION: [facility] ORDER 09 STATUS: ADM IN REPORT#: [id number] SERVICE 08 REASON: possible cholecystitis, fall few days ago with lower back pain ORDERING PHYSICIAN: JEMAL PRIDE MD PROCEDURE: ABD PEL WO - CT ABDOMEN/PELVIS W/O CONTRAST ADDENDUM REPORT ADDENDUM: The left flank hematoma measures 20 x 4 cm. Appears subcutaneous. /[place] EXAM: CT Abdomen and Pelvis Without IV contrast CLINICAL HISTORY: possible cholecystitis, fall few days ago with lower back pain TECHNIQUE: Axial computed tomography images of the abdomen and pelvis without intravenous contrast. CONTRAST: No IV contrast. COMPARISON: None provided. FINDINGS: LUNG BASES: Small pleural LIVER: Unremarkable. GALLBLADDER AND BILE DUCTS: Some gallstones, thickened gallbladder wall. Cholecystitis cannot be excluded right upper quadrant ultrasound recommended PANCREAS: Unremarkable. SPLEEN: Unremarkable. ADRENAL GLANDS: Unremarkable. KIDNEYS, URETERS, AND BLADDER: The kidneys appear within normal limits. There is no hydronephrosis or hydroureter. No urinary calculi are seen. STOMACH AND BOWEL: Unremarkable appearance of the stomach and bowel. No evidence of bowel obstruction. No evidence suggesting enteritis or colitis. APPENDIX: No evidence of acute appendicitis on CT examination. PERITONEUM: No free fluid. No free air. LYMPH NODES: No lymphadenopathy is evident. REPRODUCTIVE: Unremarkable as visualized. VASCULATURE: No evidence of abdominal aortic aneurysm. BONES: No aggressive appearing osseous lesion. No acute osseous pathology evident. MISCELLANEOUS: Left flank subcutaneous hematoma/edema formation felt to be posttraumatic IMPRESSION: 1. Some gallstones, thickened gallbladder wall. Cholecystitis cannot be excluded right upper quadrant ultrasound recommended 2. Small pleural 3. Left flank subcutaneous hematoma/edema formation felt to be posttraumatic /[place] DICTATED BY: LELIA CURIEL MD DATE: 03/26/251921 ELECTRONICALLY SIGNED BY: DATE: EXAM: CT Abdomen and Pelvis Without IV contrast CLINICAL HISTORY: possible cholecystitis, fall few days ago with lower back pain TECHNIQUE: Axial computed tomography images of the abdomen and pelvis without intravenous contrast. CONTRAST: No IV contrast. COMPARISON: None provided. FINDINGS: LUNG BASES: Small pleural LIVER: Unremarkable. GALLBLADDER AND BILE DUCTS: Some gallstones, thickened gallbladder wall. Cholecystitis cannot be excluded right upper quadrant ultrasound recommended PANCREAS: Unremarkable. SPLEEN: Unremarkable. ADRENAL GLANDS: Unremarkable. KIDNEYS, URETERS, AND BLADDER: The kidneys appear within normal limits. There is no hydronephrosis or hydroureter. No urinary calculi are seen. STOMACH AND BOWEL: Unremarkable appearance of the stomach and bowel. No evidence of bowel obstruction. No evidence suggesting enteritis or colitis. APPENDIX: No evidence of acute appendicitis on CT examination. PERITONEUM: No free fluid. No free air. LYMPH NODES: No lymphadenopathy is evident. REPRODUCTIVE: Unremarkable as visualized. VASCULATURE: No evidence of abdominal aortic aneurysm. BONES: No aggressive appearing osseous lesion. No acute osseous pathology evident. MISCELLANEOUS: Left flank subcutaneous hematoma/edema formation felt to be posttraumatic IMPRESSION: 1. Some gallstones, thickened gallbladder wall. Cholecystitis cannot be excluded right upper quadrant ultrasound recommended 2. Small pleural 3. Left flank subcutaneous hematoma/edema formation felt to be posttraumatic /[place] DICTATED BY: LELIA CURIEL MD DATE: 03/26/251758 ELECTRONICALLY SIGNED BY: LELIA CURIEL MD DATE: 03/26/2517[address] [address] IMAGING REPORT Signed PATIENT: NURIS SENIOR MR#: [id number] : 1950 SEX: M AGE: 75 LOCATION: [facility] ORDER 18 STATUS: ADM IN REPORT#: [id number] SERVICE 161 REASON: lower extremity edema, r/o any dvt ORDERING PHYSICIAN: JEMAL PRIDE MD PROCEDURE: VENOUS LINDA - US VENOUS DOPPLER BILATERAL EXAM: US for Deep Venous Thrombosis, bilateral Lower Extremity. CLINICAL HISTORY: Leg Pain and Swelling TECHNIQUE: Real-time ultrasound scan of the veins of the bilateral lower extremity with color Doppler flow, spectral waveform analysis and compression. COMPARISON: None provided. FINDINGS: DEEP VEINS: The common femoral, superficial femoral, and popliteal veins are echolucent and compressible. There is normal color Doppler flow throughout. The visualized calf veins appear patent. SOFT TISSUES: No popliteal fossa cyst or other abnormalities. IMPRESSION: Pulsatile flow suggesting heart failure No deep venous thrombosis evident on bilateral lower extremity examination. /[place] DICTATED BY: LELIA CURIEL MD DATE: 03/26/251758 ELECTRONICALLY SIGNED BY: LELIA CURIEL MD DATE: 03/26/251758 [place] [address] IMAGING REPORT Signed PATIENT: NURIS SENIOR MR#: [id number] : 1950 SEX: M AGE: 75 LOCATION: [facility] ORDER 1830 STATUS: ADM IN REPORT#: [id number] SERVICE 1828 REASON: fall, on anticogulation ORDERING PHYSICIAN: JEMAL PRIDE MD PROCEDURE: HEAD WO - CT HEAD/BRAIN W/O CONTRAST EXAM: CT Head Without IV contrast. CLINICAL HISTORY: fall, on anticogulation TECHNIQUE: Axial computed tomography images of the head/brain without intravenous contrast. COMPARISON: None provided. FINDINGS: BRAIN: No acute bleed or infarct. Chronic ischemic and atrophic changes. VENTRICLES: No hydrocephalus. ORBITS: The orbits are unremarkable. SINUSES AND MASTOIDS: The paranasal sinuses and mastoid air cells are clear. BONES: No fracture. SOFT TISSUES: Unremarkable. IMPRESSION: No acute bleed or infarct. Chronic ischemic and atrophic changes. 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%, POA Acute cholecystitis, POA Status post fall, POA History of chronic atrial fibrillation maintained on chronic anticoagulation with Eliquis, POA Moderate aortic valvular stenosis, POA Severe mitral regurgitation, POA Severe tricuspid valve regurgitation, POA Status post fall with lower back pain and left flank pain, POA Large subcutaneous left flank hematoma measuring 20 cm x 4 cm, POA History of hypertension, POA Hypervolemic hyponatremia, POA Hyperkalemia, POA Leukocytosis, POA PLAN: Acute decompensated systolic heart failure exacerbation, POA * Patient is known case of systolic heart failure taking torsemide 10 mg * On arrival patient's BNP 1190, * 2D echo from 02/24/2025 shows LVEF 30-35, potassium is severely dilated, right ventricular severely dilated * Patient was started on IV furosemide 40 mg b.i.d. * Input and output balance was -5300 on 03/27/2025 * Cardiology on board, we will follow up with the recommendations. Acute cholecystitis, POA * Patient had right upper quadrant pain on arrival * Abdominal ultrasound showed cholelithiasis with gallbladder wall thickening, suggesting acute cholecystitis * CT abdomen showed small gallstones, thickened gallbladder wall. Cholecystitis can not be excluded * Continue Zosyn IV Q8 * Patient is currently on clear liquid, surgery on board and we will follow up with the recommendation Hypervolemic hyponatremia, POA * on presentation sodium was 127 * patient placed on 1.5L fluid restriction. * patient sodium was 132 on 03/27/25 * continue IV lasix 40 mg bid * we will trend sodium levels daily History of chronic atrial fibrillation maintained on chronic anticoagulation with Eliquis, POA * patient is known case of Afib on chronic eliquis 5mg daily at home * imaging showed Large subcutaneous left flank hematoma measuring 20 cm x 4 cm * Eliquis on hold secondary to recent trauma and do also want to hold any Lovenox but would like to reinitiate Eliquis in the next 24-36 hours of H&H is hold. 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 I reviewed the documentation, medical decision making, and treatment plan as noted by the resident physician above. I agree with the findings and plan of care. MANJULA GARCIA MD, ADIL SHAH QUADRI MD Mar 27, 2025 14:52
--- NOTE | 2025-03-27 15:08 | NUR ---
Resident new to floor, arrived at 1433. Patient stable, able to voice needs. Bilateral lower extremities noted to be red and swollen. Tele monitor in place.
--- NOTE | 2025-03-27 17:22 | CONS ---
CONSULT NOTE: Consulting physician:Dr Traiq Consulting service: General surgery Reason for consultation: Possible cholecystitis History of present illness: This is a 75-year-old male with a significant medical history of a ejection fraction of 3035 with moderate valvular aortic stenosis with a history of severe mitral valve regurgitation. Patient also with a history of COPD and severe tricuspid valve regurgitation with AFib currently on Eliquis that has been consulted to surgery for concerns of intermittent right upper quadrant pain. Patient initially presented to the hospital after sustaining a fall two days prior. On admission cardiology consulted due to patient's history patient was sent to telemetry. Patient has recently been downgraded. Patient is seen in room resting. Patient with severe edema to right lower extremities. Patient also with noted hematoma to back. Patient with some abdominal discomfort at this time. WBCs 11 with a hemoglobin of . LFTs slightly elevated with a total bilirubin of 2.1. At this point in time patient is not likely candidate for surgical intervention. Medical history: Hypertension, history of advanced cardiomyopathy, history of severe tricuspid regurgitation noted on 2D echocardiogram from 01/2025, history of severe severe mitral regurgitation, history of moderate aortic valve stenosis, chronic obstructive pulmonary disease, debility, history of chronic atrial fibrillation PAST SURGICAL HISTORY: Of colon resection due to colon cancer about eight years ago, history of surgery due to shrapnel injury about 50 years ago PAST SOCIAL HISTORY: Remote history of smoking, drinks about one drink of whiskey every day for 40-50 years, denies any illicit drug use, resides with at home, since with [facility] FAMILY HISTORY: Pertinent family history Review of systems: General: No Fever, No Chills, No Night Sweats, No Fatigue, No Malaise, No Appetite, No Other HEENT: No Head Aches, No Visual Changes, No Eye Pain, No Ear Pain, No Dysphasia, No Sinus Congestion, No Post Nasal Drip, No Sore Throat, No Other Pulmonary: No Dyspnea, No Cough, No Pleuritic Chest Pain, No Other Cardiovascular: No: Chest Pain, Palpitations, Orthopnea, Paroxysmal No Dyspnea, Edema, Lt Headedness, Other Gastrointestinal: No: Nausea, Vomiting, Diarrhea, Constipation, Melena, Hematochezia, Other Genitourinary: No Dysuria, No Frequency, No Incontinence, No Hematuria, No Retention, No Other Musculoskeletal: No: other, neck pain, shoulder pain, arm pain, back pain, hand pain, leg pain, foot pain Skin: No Urticaria, No Rash, No Other Neurological: No: Weakness, Numbness, Incoordination, Change in speech, Confusion, Seizures, Other Physical exam: GENERAL APPEARANCE: The patient is awake, alert, and oriented, in no acute cardiopulmonary distress, appears debilitated NEUROLOGICAL: Cranial nerves II-XII grossly intact. Motor is 5/5 in bilateral upper and lower extremities proximal to distal. No sensory deficits. HEENT: Face is symmetric. Pupils are equal and reactive. Extraocular movements are intact. NECK: Supple. No JVD. No thyromegaly. No submental, submandibular, pre- /postauricular, occipital or supraclavicular lymphadenopathy. CHEST: Normal chest expansion. No Telemetry. LUNGS: minimal crackles noted of the bilateral lung bases CARDIOVASCULAR: Regular. S1 and S2 normal. No appreciable rubs, murmurs or gallops. ABDOMEN: Soft, nontender, and nondistended. There is no rebound, voluntary guarding, or rigidity. : Deferred. No Hough. EXTREMITIES: 3+ pitting edema noted of the bilateral lower extremities SKIN: skin tear noted of the lower back Assessment: This is a 75-year-old male with concerns of possible cholecystitis Plan: At this point in time to rule out any potential intervention needed we will order HIDA scan to evaluate gallbladder With the patient's cardiac history not likely cardiac candidate for surgical interventions of HIDA scan consistent with cholecystitis recommendation from surgical standpoint we will be cholecystostomy tube Recommendation will be for alternative AFib management for time being but we will defer to Cardiology and hospitalist team for recommendations Dr. Lundy to be updated in patient's status and nursing report any further acute events Surgical case has been discussed with my supervising physician in the above plan was formulated and agreed upon Supervising physicians evaluation the patient be done within next 24 hours We appreciate the hospitalist team for us to participate in patient's care. Greater than 55 minutes of time spent patient, reviewing chart, working on documentation ALEXANDRU SHAH Jr. [facility] Mar 27, 2025 17:22
[2025-03-27] MEDS: ZOSYN 3.375GM +NS 50ML IVPB SCH (19:37)
--- NOTE | 2025-03-27 20:02 | CONS ---
REFERRING PHYSICIAN: Dr. Tariq REASON FOR CONSULTATION: Renal failure. HISTORY OF PRESENT ILLNESS: A 75-year-old male with a history of known cardiomyopathy. The patient also with a history of known valvular heart disease, presented to the hospital with increasing shortness of breath as well as lower extremity edema. The patient was started on the diuretics. Laboratory values revealed renal dysfunction as well as hyponatremia and the patient is being seen in consultation for all of the above. PAST MEDICAL HISTORY: Hypertension, cardiomyopathy, valvular heart disease, A-fib. PAST SURGICAL HISTORY: He has had colon surgery. SOCIAL HISTORY: He does have a history of alcohol use. No tobacco use. FAMILY HISTORY: There is no renal disease in the family. ALLERGIES: No allergies. MEDICATIONS: Noted. REVIEW OF SYSTEMS: CONSTITUTIONAL: He is feeling weak and tired. HEENT: No change in vision. No change in hearing. CARDIOVASCULAR: No current chest pain or palpitations. PULMONARY: Shortness of breath did improve overnight. GASTROINTESTINAL: He is tolerating a diet. MUSCULOSKELETAL: Complains of weakness. NEUROLOGIC: No seizures or focal deficit. PSYCHIATRIC: No history of hallucinations or psychosis. ENDOCRINE: No thyroid disease. HEME: History of anemia. No malignancy. PHYSICAL EXAMINATION: VITAL SIGNS: Blood pressure is 136/71, pulse 100, afebrile. GENERAL: He is a chronically ill, elderly male, lying in bed in the medical floor. HEENT: Head is atraumatic. Pupils are equal, round and reactive to light. Oropharynx is without exudate. Nares clear. NECK: There is no JVP. There is no thyromegaly. No mass. CARDIOVASCULAR: Regular. There is no S3 or S4 gallop. LUNGS: Coarse with equal thoracic movement. ABDOMEN: Soft, nondistended, nontender. EXTREMITIES: Reveal no clubbing, cyanosis. NEUROLOGICAL: He is awake. He is alert. He is oriented. SKIN: Reveals no rashes or nodules. BACK: There is no CVA tenderness. No back deformity. LABORATORY DATA: Sodium 132, potassium 3.8, BUN 23, creatinine 1.0, hemoglobin 14, hematocrit 42, white cell count 11,000. Urinalysis is noted. Abdominal ultrasound is noted. IMPRESSION: Acute on chronic renal failure. Hypervolemia, hyponatremia. Congestive heart failure. Valvular heart disease. PLAN: The patient's renal function has stabilized. The patient's hyponatremia did improve with the diuretics. We will send off urine for electrolytes. The patient will be placed on a fluid restriction for the hyponatremia. Workup is ongoing per Cardiology. The patient's electrolytes have all been aggressively repleted. Blood pressure is under adequate control. We will continue to follow the chemistries closely. The patient had family at the bedside. Multiple questions were all answered. All labs will be repeated in the morning. TID: [id number] RECEIPT: [id number]
[2025-03-28] VITALS (9 sets, daily range): BP systolic 102–117; BP diastolic 56–75; PULSE 99–116; RESP 17–20; TEMP 97.8–97.9; O2SAT 94–97
[2025-03-28 04:39] LABS: IMMATURE GRANULOCYTE ABSOLUTE 0.07 K/uL (0-1); NUCLEATED RED BLOOD CELLS 0.0 % (0.0-0.19); PLATELET COUNT (AUTO) 223 K/uL (130-400); RED BLOOD CELL COUNT(AUTO) 4.32 MIL/uL (4.50-6.20); RED CELL DISTRIBUTION WIDTH 13.8 % (11.0-15.5); WHITE BLOOD COUNT (AUTO) 11.6 K/uL (4.8-10.8)
[2025-03-28 05:00] LABS: CREATININE 1.0 mg/dL (0.5-1.3); GLOMERULAR FILTR. RATE CALC 78.0 mL/min (>90); GLUCOSE,RANDOM 89.0 mg/dL (70-105); PHOSPHORUS 3.3 mg/dL (2.5-4.9); SODIUM SERUM 133.0 mmol/L (136-145); UREA NITROGEN, BLOOD 19.0 mg/dL (7-18)
--- NOTE | 2025-03-28 08:56 | HMCIMG ---
Examination Hepatobiliary study History colelithiasis STAT INPATIENT ROOM - 420 75YR MALE // DX: COLELITHIASIS CT: 03/26/2025 Small Gallstones; Cholecystitis can not be excluded US: 03/26/2025 GB Stones; Distended CBD: 6mm LIVER: 16.4cm Tc-99m Choletec -7mCi // NO CCK Adm. colelithiasis, Dynamic (DICOM Hx) (DICOM Hx) Technique 16.4 mCi Tc-99m mebrofenin were administered intravenously followed by acquisition of planar images of the abdomen. Findings Following administration of radiotracer, there is prompt appearance of normal hepatic contours, followed by appearance of activity in unremarkable appearing bile ducts. There is prompt filling of the gallbladder. The study is negative for acute cholecystitis. IMPRESSION: Negative HIDA study. No evidence of cholecystitis. /Roberto
--- NOTE | 2025-03-28 09:00 | NUR ---
MEDICATION AM DOSE OF LASIK NOT GIVEN. PATIENT WITH POTASSIUM LEVEL 2.9. REPLACEMENT PER PROTOCOL.
[2025-03-28] MEDS: PoTASSium chloRIDE 20MEQ ER 20 MEQ ERTAB PO PRN (09:50)
--- NOTE | 2025-03-28 10:32 | PN ---
Patient is seen for possible cholecystitis and hematoma after fall. Hemoglobin has been stable. Pain controlled. Patient denies any nausea. Exam Patient alert and oriented x3 No respiratory distress Abdomen is soft, not distended no rebound. Tenderness as expected at the site of the hematoma Assessment and plan HIDA scan showed no acute cholecystitis. Okay to advance patient's diet as tolerated to a low-fat diet. No surgical intervention planned. Hematoma is sutures be monitored and trend hemoglobins which have been stable. Do not restart the anticoagulation yet. Anticoagulation can be restarted after 10 days. We will sign off the case call us as needed. Vitals/Labs Vital Signs Date Time Temp Pulse Resp B/P (MAP) Pulse Ox O2 Delivery O2 Flow Rate FiO2 03/28/25 06:20 105 18 N/A Room Air 21 03/28/25 04:00 97.9 117/74 95 03/27/25 19:30 0 Laboratory Tests 03/28/25 04:09 Medications Current Medications Morphine Sulfate 2 mg ONCE ONCE IVP; Start 03/26/25 at 13:00; Stop 03/26/25 at 13:02; Status DC Ondansetron HCl 4 mg ONCE ONCE IVP; Start 03/26/25 at 13:00; Stop 03/26/25 at 13:02; Status DC Acetaminophen 1,000 mg ONCE ONCE PO Last administered on 03/26/25at 14:44; Start 03/26/25 at 15:00; Stop 03/26/25 at 15:01; Status DC Acetaminophen 500 mg STK-MED ONCE .ROUTE; Start 03/26/25 at 14:39; Stop 03/26/25 at 14:39; Status DC Furosemide 40 mg ONCE ONCE IV Last administered on 03/26/25at 16:57; Start 03/26/25 at 15:00; Stop 03/26/25 at 15:01; Status DC Acetaminophen 650 mg Q6H PRN PO; Start 03/26/25 at 16:30; Stop 04/25/25 at 16:29 Ondansetron HCl 4 mg Q6H PRN IVP; Start 03/26/25 at 16:30; Stop 04/25/25 at 16:29 Furosemide 40 mg BID IV Last administered on 03/27/25at 19:37; Start 03/26/25 at 21:00; Stop 04/25/25 at 20:59 Ipratropium [place] 0.5 mg Q6H PRN IH Last administered on 03/26/25at 19:39; Start 03/26/25 at 16:30; Stop 04/25/25 at 16:29 Pantoprazole Sodium 40 mg DAILY PO Last administered on 03/28/25at 09:51; Start 03/27/25 at 09:00; Stop 04/26/25 at 08:59 Piperacillin Sod/ Tazobactam Sod 3.375 gm Q8H IVPB Last administered on 03/27/25at 10:40; Start 03/26/25 at 16:30; Stop 03/27/25 at 12:31; Status DC Sodium Chloride 50 ml AD IV; Start 03/26/25 at 16:30; Stop 03/26/25 at 16:21; Status DC Magnesium Sulfate 50 ml @ 0 mls/hr PROTOCOL IV; Start 03/26/25 at 16:30; Stop 04/25/25 at 16:29 Enoxaparin Sodium 1 unit BID SQ; Start 03/26/25 at 21:00; Stop 03/26/25 at 17:26; Status DC Chlordiazepoxide HCl 25 mg Q6H PRN PO; Start 03/26/25 at 18:30; Stop 04/02/25 at 18:29 Pharmacy Profile Note 1 each PROTOCOL PRN MISC; Start 03/26/25 at 18:30; Stop 04/02/25 at 18:29 Metoprolol Succinate 200 mg DAILY PO Last administered on 03/28/25at 09:51; Start 03/27/25 at 09:00; Stop 04/26/25 at 08:59 Potassium Chloride 100 ml @ 100 mls/hr AD PRN IV Last administered on 03/28/25at 09:51; Start 03/26/25 at 22:30; Stop 04/25/25 at 22:29 Potassium Chloride 20 meq AD PRN PO; Start 03/26/25 at 22:30; Stop 04/25/25 at 22:29 Potassium Chloride 20 meq AD PRN PO Last administered on 03/28/25at 09:50; Start 03/26/25 at 22:30; Stop 04/25/25 at 22:29 Home Med BID IH; Start 03/27/25 at 09:00; Stop 04/26/25 at 08:59 Neomycin/ Polymyxin/ Bacitracin left lower back and right elbow DAILY11 TP Last administered on 03/27/25at 12:24; Start 03/27/25 at 11:00; Stop 04/26/25 at 10:59 Pharmacy Profile Note 1 each ONCE MISC; Start 03/27/25 at 12:30; Stop 03/27/25 at 12:32; Status DC Piperacillin Sod/ Tazobactam Sod 3.375 gm Q8H IVPB Last administered on 03/28/25at 03:42; Start 03/27/25 at 19:30; Stop 04/06/25 at 19:29 KALEB SOTO MD Mar 28, 2025 10:32
[2025-03-28] MEDS ORDERED: MAGNESIUM 2GM PREMIX 50ML 50 ML IV SCH (12:30)
--- NOTE | 2025-03-28 13:08 | PN ---
[facility] C[facility] PROGRESS NOTE Date Patient Seen: Mar 28, 2025 Time of Visit: 12:38 Interval History: This 75-year-old white male, patient of Dr. Avni Lackey, has a history of hypertension, colon cancer, COPD, permanent atrial fibrillation with difficult rate control, long-term anticoagulation with Eliquis, probable ischemic cardiomyopathy with LVEF of 30-35%, abnormal Lexiscan Cardiolite stress test 10/02/2017 with a moderately severe partially reversible defect at the apex, and valvular heart disease with moderate aortic stenosis, severe MR, and severe TR by 2D echocardiogram 02/24/2025 was admitted status post an accidental fall and with progressive edema and shortness of breath. He was found to be in combined systolic and diastolic congestive heart failure and was admitted for further management. Eliquis has been on hold because of bruising at the right lateral calf. He has responded to diuretic therapy with improved dyspnea, edema, and BNP 1190>>>1310>>> 737. He is also followed by Dr. Roberth Mata and plans for upcoming ICD/CHEMICAL CHECKER-D for management of his atrial fibrillation and cardiomyopathy. He was noted to have cholelithiasis on CT of the abdomen and ultrasound of the abdomen 03/26/2025 demonstrated cholelithiasis with thickening of the gallblad javan wall. A HIDA scan today demonstrated no evidence of obstruction. He is concerned about plans upon discharge given his frailty and inability to stand. He clearly will require discharge to a halfway facility. This was discussed with upper caser today. Physical Examination: GENERAL: No acute distress. HEAD: Normal with no signs of head trauma. EYES: PERRLA, EOMI, conjunctiva and sclera normal. NECK: Supple without JVD. There is no tenderness, lymphadenopathy, or masses. No thyromegaly. Normal carotid upstrokes without bruits. LUNGS: Bibasilar rales and diminished breath sounds. HEART: Normal rate and rhythm. Normal S1 and S2 with a 2/6 holosystolic murmur at the lower left sternal border radiating to the apex. There is a 2/6 early peaking systolic ejection murmur loudest at the right upper sternal border. VASC: Peripheral pulses +2 bilaterally. EXT: No clubbing or cyanosis. 2+ pitting edema to the knees bilaterally. Ecchymosis of the right lateral thigh which is soft. Small bleb on the right lateral thigh. Hyperacute pain sensitivity. NEURO: Awake, alert, and oriented x3. No focal neurological deficits noted. Laboratory: Hematology Labs: Test 03/28/25 04:09 03/26/25 13:14 03/26/25 13:12 Range/Units White Blood Count 11.6 H 4.8-10.8 K/uL Red Blood Count 4.32 L 4.50-6.20 MIL/uL Hemoglobin 14.1 14.0-18.0 g/dL Hematocrit 41.0 L 42-54 % Mean Corpuscular Volume 94.9 79-99 fL Mean Corpuscular Hemoglobin 32.6 27.0-33.0 pg Mean Corpuscular Hemoglobin Concent 34.4 32.0-36.0 g/dL Red Cell Distribution Width 13.8 11.0-15.5 % Platelet Count 223 130-400 K/uL Mean Platelet Volume 8.7 7.5-10.5 fL Immature Granulocyte % (Auto) 0.6 0-1 % Neutrophils (%) (Auto) 80.6 H 40.0-77.0 % Lymphocytes (%) (Auto) 8.1 L 21.0-51.0 % Monocytes (%) (Auto) 9.4 3.0-13.0 % Eosinophils (%) (Auto) 1.0 0.0-8.0 % Basophils (%) (Auto) 0.3 0.0-5.0 % Neutrophils # (Auto) 9.3 H 1.8-7.7 K/uL Lymphocytes # (Auto) 0.9 L 1.0-4.8 K/uL Monocytes # (Auto) 1.1 H 0.1-1.0 K/uL Eosinophils # (Auto) 0.11 0.00-0.70 K/uL Basophils # (Auto) 0.03 0.00-0.20 K/uL Absolute Immature Granulocyte (auto 0.07 0-1 K/uL Nucleated Red Blood Cells 0.0 0.0-0.19 % White Cell Morphology Comment See comments Erythrocyte Sedimentation Rate 27 H 0-20 MM/HR Chemistry Labs: Test 03/28/25 04:09 03/27/25 04:25 03/26/25 13:14 03/26/25 13:12 Range/Units Sodium Level 133 L 136-145 mmol/L Potassium Level 2.9 *L 3.5-5.1 mmol/L Chloride Level 92 L 101-111 mmol/L Carbon Dioxide Level 33 H 21-32 mmol/L Blood Urea Nitrogen 19 H 7-18 mg/dL Creatinine 1.0 0.5-1.3 mg/dL Glomerular Filtration Rate Calc 78 >90 mL/min Random Glucose 89 70-105 mg/dL Total Calcium 8.2 L 8.5-10.1 mg/dL Phosphorus Level 3.3 2.5-4.9 mg/dL Magnesium Level 1.60 L 1.80-2.40 mg/dL B-Type Natriuretic Peptide 737 H 0-100 pg/mL Total Bilirubin 2.1 H 0.2-1.0 mg/dL Aspartate Amino Transf (AST/SGOT) 19 10-37 U/L Alanine Aminotransferase (ALT/SGPT) 21 12-78 U/L Alkaline Phosphatase 67 50-136 U/L Total Protein 6.5 6.0-8.3 g/dL Albumin 3.2 L 3.5-5.0 g/dL Troponin I High Sensitivity 14 4-75 ng/L Hemoglobin A1c 5.5 4.0-6.0 % Estimated Average Glucose (eAG) 111 70-126 mg/dL Lactate Dehydrogenase 329 H 81-234 U/L C-Reactive Protein, Quantitative 16.90 H 0.5-3.0 mg/L Procalcitonin < 0.05 L 0.05-0.5 ng/mL Thyroid Stimulating Hormone (TSH) 1.03 0.36-3.74 uIU/mL Coagulation Labs: Test 03/26/25 13:12 Range/Units Prothrombin Time 14.1 H 9.6-11.6 SEC Prothromb Time International Ratio 1.37 H 0.85-1.15 Activated Partial Thromboplast Time 36.8 H 26.3-35.5 SEC Diagnostics / Radiology: Conclusion The left atrium is severely dilated. LASVI 59 mL/m. The right ventricle is severely dilated. The right ventricular systolic function is mildly reduced. Severe inferoseptal, apical septal and apical hypokinesis. LVEF is 30-35%. Aortic valve is trileaflet, heavily thickened with restricted opening. There is moderate aortic valvular stenosis. Peak AV gradient is 25mmHg, mean AV gradient is 14mmHg. AoV area 1.5cm. AoV area by planimetry 1.4cm. There is severe mitral valve regurgitation noted. MR ERO 0.4 cm. Reversed pulmonary vein flow noted. There is severe tricuspid valve regurgitation noted by color Doppler. RVSP 42mmHg There is no pericardial effusion. DICTATED BY: RODERICK ALFORD MD DATE: 02/24/25 1434 Impression and Plan: Status post fall with right lateral lower leg ecchymosis: Progressive debility: -resume chronic Eliquis 5 mg b.i.d. 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 BNP 1190>>>1310>>> 737: Moderate LV dysfunction with LVEF of 30-35% by 2D echo 02/24/2025: Probable ischemic cardiomyopathy with segmental wall motion abnormalities on 2D echo 02/24/2025 and with severe partially reversible apical defect on Cardiolite stress test 10/02/2017 Valvular heart disease with severe MR, severe TR as well as moderate aortic stenosis by 2D echo 02/24/2025 (peak aortic valve gradient 25 mm of mercury, mean aortic valve gradient 14 mm of mercury and aortic valve area of 1.5 cm: Multifactorial pedal edema: No evidence of DVT on venous Doppler of the lower extremities 03/04/2025 with significant superficial venous insufficiency in the left GSV and left SSV: - multiple drug intolerances including PAYAL inhibitors, ARB drugs, Entresto, and digoxin - transition IV Lasix 40 q.12 hours to torsemide 20 mg daily tomorrow - plans are for biventricular pacemaker/AICD insertion (CHEMICAL CHECKER-D) and AV node ablation in April with Dr. Roberth Mata Permanent atrial fibrillation with difficult rate control, requiring metoprolol 100 b.i.d.: Plans for biventricular pacemaker AICD insertion (CHEMICAL CHECKER-D) and AV node ablation April 2025: Intolerance of digoxin due to diarrhea: -rate controlled currently on metoprolol 100 b.i.d. in the 90-110 beat per minute range -the patient was previously intolerant of digoxin due to diarrhea -resume Eliquis 5 mg b.i.d. Cholelithiasis with negative HIDA scan 03/28/2025: -right upper quadrant pain appears to have stabilized Comorbidities: COPD Frailty History of colon cancer Essential hypertension Multiple drug intolerances with dizziness with Entresto, fatigue with olmesartan and losartan, hypotension with PAYAL inhibitors, and diarrhea with digoxin RODERICK ALFORD MD Mar 28, 2025 13:08
[2025-03-28] MEDS: PoTASSium chloRIDE 20MEQ ER 20 MEQ ERTAB PO SCH (13:21)
--- NOTE | 2025-03-28 13:27 | PN ---
FOLLOWUP PROGRESS NOTE SUBJECTIVE: A 75-year-old male with a history of known cardiomyopathy. The patient with a history of valvular heart disease. He initially presented with increasing shortness of breath, orthopnea. The patient was started on the diuretics. The patient has had acute on chronic renal failure in the hospital. Creatinine has been elevated and he is being seen as a followup visit for all of the above. Patient also with evidence of significant hyponatremia. REVIEW OF SYSTEMS: GENERAL: He is feeling somewhat improved overnight. HEENT: No change in vision. No change in hearing. CARDIOVASCULAR: There is no current chest pain or palpitations. PULMONARY: Shortness of breath has greatly improved. GASTROINTESTINAL: He is tolerating a diet. MUSCULOSKELETAL: Complaints of weakness. PHYSICAL EXAMINATION: VITAL SIGNS: Blood pressure is 117/74, pulse in the 90s. GENERAL: He is a chronically ill, elderly male, lying in bed on the medical floor. HEENT: Head is atraumatic. Pupils are equal, round, and reactive to light. Oropharynx is without exudate. Nares clear. NECK: There is no JVP. There is no thyromegaly. CARDIOVASCULAR: Regular. There is no S3 or S4 gallop. LUNGS: Coarse with equal thoracic movement. ABDOMEN: Soft, nondistended and nontender. EXTREMITIES: Reveal no clubbing, no cyanosis. NEUROLOGICAL: He is awake, he is alert. LABORATORY DATA: Sodium 133, potassium 2.9, BUN 19, creatinine 1, hemoglobin 14, hematocrit 41. IMPRESSION: Acute on chronic renal failure. Cardiomyopathy. Hyponatremia. Anemia. PLAN: The patient's creatinine did stabilize. The patient's serum sodium has improved with the diuretics. He is encouraged with the fluid restriction. Urine output has been excellent with the diuretics. Potassium has been aggressively repleted and we will continue to follow closely. The patient does have severe cardiomyopathy. Workup is ongoing per Cardiology. We will continue to follow closely. The patient and family at the bedside. Multiple questions were answered. TID: [id number] RECEIPT: [id number]
[2025-03-28] MEDS: MAGNESIUM 2GM PREMIX 50ML 50 ML IV SCH (13:31)
[2025-03-28 14:18] LABS: CREATININE 1.1 mg/dL (0.5-1.3); GLOMERULAR FILTR. RATE CALC 69.0 mL/min (>90); GLUCOSE,RANDOM 133.0 mg/dL (70-105); SODIUM SERUM 133.0 mmol/L (136-145); UREA NITROGEN, BLOOD 18.0 mg/dL (7-18)
--- NOTE | 2025-03-28 16:08 | PN ---
[facility] PROGRESS NOTE Date of Service: Mar 28, 2025 Time of Service: 15:51 SUBJECTIVE: [ ] 03/27/2025: Patient was seen and evaluated bedside, case discussed with RN and no acute overnight events. Patient says he is feeling better, denies chest pain, shortness of breath, palpitations, nausea and vomiting. Morning lab showed sodium trending up to 132, potassium trending down to 3.8, BNP trending up to 1310. Patient is currently on clear liquids, waiting for cardiac clearance before surgery for acute cholecystitis. Continue IV furosemide 40 mg b.i.d., 100 mg daily p.o., Zosyn Q 8. General surgery, Cardiology, Nephrology on board and we will follow up with the recommendations. 03/28/2025: Patient was seen and evaluated bedside in room 420. Case discussed with RN, no acute overnight events. Patient vitals are hemodynamically stable except for heart rate in late 90s and early 100s overnight. Patient is responding well to IV Lasix I and O balance this morning was -6590. Morning lab showed potassium 2.9, started replacing per protocol. HIDA scan was done this morning which was negative for acute cholecystitis. Cardiology recommended resuming Eliquis5 mg b.i.d. for AFib today, transition to torsemide 20 mg daily tomorrow. REVIEW OF SYSTEMS CONSTITUTIONAL: Denies fevers or chills, reports having malaise and poor oral intake NEUROLOGICAL: Denies headache, amaurosis fugax, motor weakness, sensory deficit, vertigo/spinning sensation, gait abnormalities, or tremors. ENT: No hearing loss, otalgia, otorrhea, rhinitis, rhinorrhea, hoarseness, or sore throat. CARDIOVASCULAR: Reports having significant lower extremity edema, history of heart failure, denies active chest pain PULMONARY: Reports having dyspnea on exertion SLEEP: Denies morning headaches, daytime somnolence or napping. Denies difficul ty falling asleep, staying asleep, waking from sleep. Denies knowledge of snoring. GASTROINTESTINAL: Reports having poor oral intake, denies nausea or vomiting GENITOURINARY: Denies frequency, urgency, nocturia, hematuria or incontinence (Storage/Irritative symptoms.) Low urinary stream, straining to void, urinary intermittency or hesitancy, splitting of the voiding stream, terminal dribbling. ENDOCRINOLOGIC: Denies polyuria, polydipsia, polyphagia or heat/cold intolerances. HEMATOLOGIC: Denies thrombophilia/previous clots, or coagulopathy/bleeding disorders. ONCOLOGIC: Denies personal history of malignancy. DERMATOLOGIC: Denies rashes or pruritus. PSYCHIATRIC: Denies any suicidal or homicidal ideation. Denies hallucinations. PHYSICAL EXAM GENERAL APPEARANCE: The patient is awake, alert, and oriented, in no acute cardiopulmonary distress, appears debilitated NEUROLOGICAL: Cranial nerves II-XII grossly intact. Motor is 5/5 in bilateral upper and lower extremities proximal to distal. No sensory deficits. HEENT: Face is symmetric. Pupils are equal and reactive. Extraocular movements are intact. NECK: Supple. No JVD. No thyromegaly. No submental, submandibular, pre-/posta uricular, occipital or supraclavicular lymphadenopathy. CHEST: Normal chest expansion. No Telemetry. LUNGS: minimal crackles noted of the bilateral lung bases CARDIOVASCULAR: Regular. S1 and S2 normal. No appreciable rubs, murmurs or gallops. ABDOMEN: Soft, nontender, and nondistended. There is no rebound, voluntary guarding, or rigidity. : Deferred. No Hough. EXTREMITIES: 3+ pitting edema noted of the bilateral lower extremities SKIN: skin tear noted of the lower back Vital Signs (last 8hr) Date Time Temp Pulse Resp B/P (MAP) Pulse Ox O2 Delivery O2 Flow Rate FiO2 03/28/25 15:40 97.9 106 17 102/75 95 Room Air 03/28/25 11:20 97.9 109 17 110/74 94 Room Air LABS: Laboratory: Test 03/28/25 14:01 03/28/25 04:09 03/27/25 04:25 03/26/25 18:15 Range/Units Sodium Level 133 L 136-145 mmol/L Potassium Level 3.5 3.5-5.1 mmol/L Chloride Level 91 L 101-111 mmol/L Carbon Dioxide Level 38 H 21-32 mmol/L Blood Urea Nitrogen 18 7-18 mg/dL Creatinine 1.1 0.5-1.3 mg/dL Glomerular Filtration Rate Calc 69 >90 mL/min Random Glucose 133 H 70-105 mg/dL Total Calcium 8.2 L 8.5-10.1 mg/dL Magnesium Level 1.60 L 1.80-2.40 mg/dL White Blood Count 11.6 H 4.8-10.8 K/uL Red Blood Count 4.32 L 4.50-6.20 MIL/uL Hemoglobin 14.1 14.0-18.0 g/dL Hematocrit 41.0 L 42-54 % Mean Corpuscular Volume 94.9 79-99 fL Mean Corpuscular Hemoglobin 32.6 27.0-33.0 pg Mean Corpuscular Hemoglobin Concent 34.4 32.0-36.0 g/dL Red Cell Distribution Width 13.8 11.0-15.5 % Platelet Count 223 130-400 K/uL Mean Platelet Volume 8.7 7.5-10.5 fL Immature Granulocyte % (Auto) 0.6 0-1 % Neutrophils (%) (Auto) 80.6 H 40.0-77.0 % Lymphocytes (%) (Auto) 8.1 L 21.0-51.0 % Monocytes (%) (Auto) 9.4 3.0-13.0 % Eosinophils (%) (Auto) 1.0 0.0-8.0 % Basophils (%) (Auto) 0.3 0.0-5.0 % Neutrophils # (Auto) 9.3 H 1.8-7.7 K/uL Lymphocytes # (Auto) 0.9 L 1.0-4.8 K/uL Monocytes # (Auto) 1.1 H 0.1-1.0 K/uL Eosinophils # (Auto) 0.11 0.00-0.70 K/uL Basophils # (Auto) 0.03 0.00-0.20 K/uL Absolute Immature Granulocyte (auto 0.07 0-1 K/uL Nucleated Red Blood Cells 0.0 0.0-0.19 % Phosphorus Level 3.3 2.5-4.9 mg/dL B-Type Natriuretic Peptide 737 H 0-100 pg/mL Total Bilirubin 2.1 H 0.2-1.0 mg/dL Aspartate Amino Transf (AST/SGOT) 19 10-37 U/L Alanine Aminotransferase (ALT/SGPT) 21 12-78 U/L Alkaline Phosphatase 67 50-136 U/L Total Protein 6.5 6.0-8.3 g/dL Albumin 3.2 L 3.5-5.0 g/dL Urine Color LIGHT-YELLOW YELLOW Urine Appearance CLEAR CLEAR Urine pH 5.5 5.0-8.0 Urine Specific [place] 1.008 1.001-1.031 Urine Protein NEGATIVE NEGATIVE mg/dL Urine Glucose (UA) NEGATIVE NEGATIVE mg/dL Urine Ketones NEGATIVE NEGATIVE mg/dL Urine Occult Blood NEGATIVE NEGATIVE Urine Nitrate NEGATIVE NEGATIVE Urine Bilirubin NEGATIVE NEGATIVE mg/dL Urine Urobilinogen 0.2 0.2-1.0 mg/dL Urine Leukocyte Esterase NEGATIVE NEGATIVE Sea/uL Urine Random Creatinine 33.56 30-135 mg/dL Urine Random Sodium 49 40-220 mmol/l Current Medications Medications (Trade) Dose Ordered Sig/Dixie Route PRN Reason Start Time Stop Time Status Last Admin Dose Admin Acetaminophen (TYLenol 325MG TAB) 650 mg Q6H PRN PO MILD PAIN (1-3) 03/26/25 16:30 04/25/25 16:29 Apixaban (EliquIS) 5 mg BID PO 03/28/25 21:00 04/27/25 20:59 Chlordiazepoxide HCl (LIBrium 25 MG CAP) 25 mg Q6H PRN PO ALCOHOL WITHDRAWAL PROTOCOL 03/26/25 18:30 04/02/25 18:29 Enoxaparin Sodium (Lovenox (Pharmacy To Dose)) 1 unit BID SQ 03/26/25 21:00 03/26/25 17:26 DC Furosemide (LASix 40MG VIAL) 40 mg BID IV 03/26/25 21:00 04/25/25 20:59 03/27/25 19:37 40 MG Home Med (Home Medication) BID IH 03/27/25 09:00 04/26/25 08:59 Ipratropium Altus (AtrovENT UD) 0.5 mg Q6H PRN IH SHORTNESS OF BREATH 03/26/25 16:30 04/25/25 16:29 03/26/25 19:39 0.5 MG Magnesium Sulfate 50 ml @ 0 mls/hr PROTOCOL IV 03/26/25 16:30 04/25/25 16:29 03/28/25 13:31 25 MLS/HR Magnesium Sulfate 50 ml @ 0 mls/hr PROTOCOL IV 03/28/25 12:30 03/28/25 12:29 DC Metoprolol Succinate (TopROL XL) 200 mg DAILY PO 03/27/25 09:00 04/26/25 08:59 03/28/25 09:51 200 MG Neomycin/ Polymyxin/ Bacitracin (Triple Antibiotic Ointment) left lower back and right elbow DAILY11 TP 03/27/25 11:00 04/26/25 10:59 03/28/25 13:43 1 APPL Ondansetron HCl (zoFRAN 4MG INJ) 4 mg Q6H PRN IVP NAUSEA/VOMITING 03/26/25 16:30 04/25/25 16:29 Pantoprazole Sodium (PROTonix 40MG TAB) 40 mg DAILY PO 03/27/25 09:00 04/26/25 08:59 03/28/25 09:51 40 MG Pharmacy Profile Note (Pharmacy Communication) 1 each ONCE MISC 03/27/25 12:30 03/27/25 12:32 DC Pharmacy Profile Note (Pharmacy Communication) 1 each PROTOCOL PRN MISC ETOH Withdrawal Score changes 03/26/25 18:30 04/02/25 18:29 Piperacillin Sod/ Tazobactam Sod (Zosyn 3.375gm+NS 50ml) 3.375 gm Q8H IVPB 03/26/25 16:30 03/27/25 12:31 DC 03/27/25 10:40 3.375 GM Piperacillin Sod/ Tazobactam Sod (Zosyn 3.375gm+NS 50ml) 3.375 gm Q8H IVPB 03/27/25 19:30 04/06/25 19:29 03/28/25 13:21 3.375 GM Potassium Chloride 100 ml @ 100 mls/hr AD PRN IV POTASSIUM PROTOCOL 03/26/25 22:30 04/25/25 22:29 03/28/25 09:51 100 MLS/HR Potassium Chloride (K-Dur 10meq Sr Tab) 10 meq BID PO 03/28/25 21:00 04/27/25 20:59 Potassium Chloride (K-Dur/Klor-Con 20meq) 20 meq AD PRN PO POTASSIUM PROTOCOL 03/26/25 22:30 04/25/25 22:29 03/28/25 09:50 20 MEQ Potassium Chloride (K-Dur/Klor-Con 20meq) 40 meq Q1H PO 03/28/25 12:30 03/28/25 13:31 DC 03/28/25 13:21 40 MEQ Potassium Chloride (KCl 10% Elixir 20meq/15ml) 20 meq AD PRN PO POTASSIUM PROTOCOL 03/26/25 22:30 04/25/25 22:29 Sodium Chloride (NS 50ml) 50 ml AD IV 03/26/25 16:30 03/26/25 16:21 DC DIAGNOSTICS / RADIOLOGY: [ ] [place] [address] [place] [address] IMAGING REPORT Signed PATIENT: NURIS SENIOR MR#: [id number] : 1950 SEX: M AGE: 75 LOCATION: 4[facility] ORDER 1642 STATUS: ADM IN REPORT#: [id number] SERVICE [id number] REASON: colelithiasis ORDERING PHYSICIAN: ALEXANDRU SHAH Jr. PAC PROCEDURE: HIDAWO - NM HIDA WO EF/CCK Examination Hepatobiliary study History colelithiasis STAT INPATIENT ROOM - 420 [id number] MALE // DX: COLELITHIASIS CT: 03/26/2025 Small Gallstones; Cholecystitis can not be excluded US: 03/26/2025 GB Stones; Distended CBD: 6mm LIVER: 16.4cm Tc-99m Choletec -7mCi // NO CCK Adm. colelithiasis, Dynamic (DICOM Hx) (DICOM Hx) Technique 16.4 mCi Tc-99m mebrofenin were administered intravenously followed by acquisition of planar images of the abdomen. Findings Following administration of radiotracer, there is prompt appearance of normal hepatic contours, followed by appearance of activity in unremarkable appearing bile ducts. There is prompt filling of the gallbladder. The study is negative for acute cholecystitis. IMPRESSION: Negative HIDA study. No evidence of cholecystitis. /[place] DICTATED BY: SERGIO FONSECA MD DATE: 03/28/25954 ELECTRONICALLY SIGNED BY: SERGIO FONSECA MD DATE: 03/28/25954 ASSESSMENT: Acute decompensated heart failure exacerbation, POA History of advanced dilated cardiomyopathy with LVEF of 30-35%, POA Acute cholecystitis, POA Status post fall, POA History of chronic atrial fibrillation maintained on chronic anticoagulation with Eliquis, POA Moderate aortic valvular stenosis, POA Severe mitral regurgitation, POA Severe tricuspid valve regurgitation, POA Status post fall with lower back pain and left flank pain, POA Large subcutaneous left flank hematoma measuring 20 cm x 4 cm, POA History of hypertension, POA Hypervolemic hyponatremia, POA Hyperkalemia, POA Leukocytosis, POA PLAN: Acute decompensated systolic heart failure exacerbation, POA * Patient is known case of systolic heart failure taking torsemide 10 mg * On arrival patient's BNP 1190, * 2D echo from 02/24/2025 shows LVEF 30-35, potassium is severely dilated, right ventricular severely dilated * Patient was started on IV furosemide 40 mg b.i.d. * Input and output balance was -6590 on 03/28/2025 * Transition to torsemide 20 mg daily from 03/29/2025 as per cardiology recommendations. * Cardiology on board, we will follow up with the recommendations. Acute cholecystitis, POA * Patient had right upper quadrant pain on arrival * Abdominal ultrasound showed cholelithiasis with gallbladder wall thickening, suggesting acute cholecystitis * CT abdomen showed small gallstones, thickened gallbladder wall. Cholecystitis can not be excluded * Continue Zosyn IV Q8 * Patient is currently on clear liquid, surgery on board and we will follow up with the recommendation * HIDA scan performed on 03/28/2025 showed negative for acute cholecystitis. Hypervolemic hyponatremia, POA * on presentation sodium was 127 * patient placed on 1.5L fluid restriction. * patient sodium was 133 on 03/28/2025 * continue IV lasix 40 mg bid * we will trend sodium levels daily History of chronic atrial fibrillation maintained on chronic anticoagulation with Eliquis, POA * patient is known case of Afib on chronic eliquis 5mg daily at home * imaging showed Large subcutaneous left flank hematoma measuring 20 cm x 4 cm * Eliquis on hold secondary to recent trauma and do also want to hold any Lovenox but would like to reinitiate Eliquis in the next 24-36 hours of H&H is hold. * Eliquis 5 mg b.i.d. 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 I reviewed the documentation, medical decision making, and treatment plan as noted by the resident above. I agree with the findings and plan of care. Pollo Leon IV, MD, ADIL SHAH QUADRI MD Mar 28, 2025 16:08
[2025-03-28] MEDS: PoTASSium chloRIDE 10MEQ SR 10 MEQ/TAB TAB.SR.24H PO SCH (20:18)
[2025-03-29] VITALS (11 sets, daily range): BP systolic 96–155; BP diastolic 55–79; PULSE 83–107; RESP 18–20; TEMP 97.5–98.2; O2SAT 94–97
[2025-03-29 04:35] LABS: NUCLEATED RED BLOOD CELLS 0.0 % (0.0-0.19); PLATELET COUNT (AUTO) 211.0 K/uL (130-400); RED BLOOD CELL COUNT(AUTO) 4.04 MIL/uL (4.50-6.20); RED CELL DISTRIBUTION WIDTH 13.9 % (11.0-15.5); WHITE BLOOD COUNT (AUTO) 12.3 K/uL (4.8-10.8)
[2025-03-29 04:47] LABS: CREATININE 0.8 mg/dL (0.5-1.3); GLOMERULAR FILTR. RATE CALC 91.0 mL/min (>90); GLUCOSE,RANDOM 101.0 mg/dL (70-105); SODIUM SERUM 128.0 mmol/L (136-145); UREA NITROGEN, BLOOD 16.0 mg/dL (7-18)
--- NOTE | 2025-03-29 09:44 | PN ---
[facility] CARDIOLOGY PROGRESS NOTE Date Patient Seen: Mar 29, 2025 Time of Visit: 09:39 Interval History: This 75-year-old white male, patient of Dr. Alvin Lackey, has a history of hypertension, colon cancer, COPD, permanent atrial fibrillation with difficult rate control, long-term anticoagulation with Eliquis, probable ischemic cardiomyopathy with LVEF of 30-35%, abnormal Lexiscan Cardiolite stress test 10/02/2017 with a moderately severe partially reversible defect at the apex, and valvular heart disease with moderate aortic stenosis, severe MR, and severe TR by 2D echocardiogram 02/24/2025 was admitted status post an accidental fall and with progressive edema and shortness of breath. He was found to be in combined systolic and diastolic congestive heart failure and was admitted for further management. He has responded to diuretic therapy with improved dyspnea, and improving edema, and BNP 1190>>>1310>>> 737. A follow-up chest x-ray this morning demonstrates COPD changes and no CHF. He has continued with some lower extremity edema. He is also followed by Dr. Roberth Mata and plans for upcoming ICD/AUDIT CONTROL CLERK-D for management of his atrial fibrillation and cardiomyopathy. Telemetry overnight has demonstrated atrial fibrillation with rates of 90-110 beats per minute. He is concerned about plans upon discharge given his frailty and inability to stand. He clearly will require discharge to a [facility]ci facility. The patient is reluctant to sit up in a chair. He is concerned about pain in the soles of his feet. He is reluctant to begin progressive mobilization. I have contacted the rn case mgr (Joseph) he will begin looking at placement. We will advise Dr. Roberth Mata of his admission and plans are for AV node ablation and upgrade to a Bi V pacemaker in April. Physical Examination: GENERAL: No acute distress. HEAD: Normal with no signs of head trauma. EYES: PERRLA, EOMI, conjunctiva and sclera normal. NECK: Supple without JVD. There is no tenderness, lymphadenopathy, or masses. No thyromegaly. Normal carotid upstrokes without bruits. LUNGS: Bibasilar rales and diminished breath sounds. HEART: Normal rate and rhythm. Normal S1 and S2 with a 2/6 holosystolic murmur at the lower left sternal border radiating to the apex. There is a 2/6 early peaking systolic ejection murmur loudest at the right upper sternal border. VASC: Peripheral pulses +2 bilaterally. EXT: No clubbing or cyanosis. 2+ pitting edema to the knees bilaterally. Ecchymosis to the upper extremities bilaterally. Ecchymosis of the right lateral thigh which is soft. Small bleb on the right lateral thigh. Hyperacute pain sensitivity. NEURO: Awake, alert, and oriented x3. No focal neurological deficits noted. Laboratory: Hematology Labs: Test 03/29/25 04:03 03/28/25 04:09 Range/Units White Blood Count 12.3 H 4.8-10.8 K/uL Red Blood Count 4.04 L 4.50-6.20 MIL/uL Hemoglobin 13.4 L 14.0-18.0 g/dL Hematocrit 39.6 L 42-54 % Mean Corpuscular Volume 98.0 79-99 fL Mean Corpuscular Hemoglobin 33.2 H 27.0-33.0 pg Mean Corpuscular Hemoglobin Concent 33.8 32.0-36.0 g/dL Red Cell Distribution Width 13.9 11.0-15.5 % Platelet Count 211 130-400 K/uL Mean Platelet Volume 8.7 7.5-10.5 fL Nucleated Red Blood Cells 0.0 0.0-0.19 % Immature Granulocyte % (Auto) 0.6 0-1 % Neutrophils (%) (Auto) 80.6 H 40.0-77.0 % Lymphocytes (%) (Auto) 8.1 L 21.0-51.0 % Monocytes (%) (Auto) 9.4 3.0-13.0 % Eosinophils (%) (Auto) 1.0 0.0-8.0 % Basophils (%) (Auto) 0.3 0.0-5.0 % Neutrophils # (Auto) 9.3 H 1.8-7.7 K/uL Lymphocytes # (Auto) 0.9 L 1.0-4.8 K/uL Monocytes # (Auto) 1.1 H 0.1-1.0 K/uL Eosinophils # (Auto) 0.11 0.00-0.70 K/uL Basophils # (Auto) 0.03 0.00-0.20 K/uL Absolute Immature Granulocyte (auto 0.07 0-1 K/uL Chemistry Labs: Test 03/29/25 04:03 03/28/25 04:09 Range/Units Sodium Level 128 L 136-145 mmol/L Potassium Level 3.5 3.5-5.1 mmol/L Chloride Level 91 L 101-111 mmol/L Carbon Dioxide Level 32 21-32 mmol/L Blood Urea Nitrogen 16 7-18 mg/dL Creatinine 0.8 0.5-1.3 mg/dL Glomerular Filtration Rate Calc 91 >90 mL/min Random Glucose 101 70-105 mg/dL Total Calcium 7.8 L 8.5-10.1 mg/dL Magnesium Level 1.70 L 1.80-2.40 mg/dL B-Type Natriuretic Peptide 879 H 0-100 pg/mL Phosphorus Level 3.3 2.5-4.9 mg/dL Diagnostics / Radiology: Conclusion The left atrium is severely dilated. LASVI 59 mL/m. The right ventricle is severely dilated. The right ventricular systolic function is mildly reduced. Severe inferoseptal, apical septal and apical hypokinesis. LVEF is 30-35%. Aortic valve is trileaflet, heavily thickened with restricted opening. There is moderate aortic valvular stenosis. Peak AV gradient is 25mmHg, mean AV gradient is 14mmHg. AoV area 1.5cm. AoV area by planimetry 1.4cm. There is severe mitral valve regurgitation noted. MR ERO 0.4 cm. Reversed pulmonary vein flow noted. There is severe tricuspid valve regurgitation noted by color Doppler. RVSP 42mmHg There is no pericardial effusion. DICTATED BY: RODERICK ALFORD MD DATE: 02/24/251433 Impression and Plan: Status post fall with right lateral lower leg ecchymosis: Progressive debility: -physical therapy to evaluate and treat -he has been restarted on chronic Eliquis 5 mg b.i.d. for prevention of thromboembolism in this patient with permanent atrial fibrillation Chronic HFrEF with combined systolic and diastolic CHF BNP 1190>>>1310>>> 737: Moderate LV dysfunction with LVEF of 30-35% by 2D echo 02/24/2025: Probable ischemic cardiomyopathy with segmental wall motion abnormalities on 2D echo 02/24/2025 and with severe partially reversible apical defect on Cardiolite stress test 10/02/2017 Valvular heart disease with severe MR, severe TR as well as moderate aortic stenosis by 2D echo 02/24/2025 (peak aortic valve gradient 25 mm of mercury, mean aortic valve gradient 14 mm of mercury and aortic valve area of 1.5 cm: Multifactorial pedal edema: No evidence of DVT on venous Doppler of the lower extremities 03/04/2025 with significant superficial venous insufficiency in the left GSV and left SSV: - multiple drug intolerances including PAYAL inhibitors, ARB drugs, Entresto, and digoxin - discontinue IV Lasix and transition to torsemide 20 mg bid - plans are for biventricular pacemaker/AICD insertion (AUDIT CONTROL CLERK-D) and AV node ablation in April with Dr. Roberth Mata - We will notify Dr. Mata of his admission in AM Permanent atrial fibrillation with difficult rate control, requiring metoprolol 100 b.i.d.: Plans for biventricular pacemaker AICD insertion (AUDIT CONTROL CLERK-D) and AV node ablation April 2025: Intolerance of digoxin due to diarrhea: -rate controlled currently on metoprolol 100 b.i.d. in the 90-110 beat per minute range -the patient was previously intolerant of digoxin due to diarrhea -continue Eliquis 5 mg b.i.d. Cholelithiasis with negative HIDA scan 03/28/2025: -right upper quadrant pain appears to have stabilized Comorbidities: COPD Frailty History of colon cancer Essential hypertension Multiple drug intolerances with dizziness with Entresto, fatigue with olmesartan and losartan, hypotension with PAYAL inhibitors, and diarrhea with digoxin PHYSICIAN ATTESTATION OF PHYSICIAN HALAL MEAT PACKER DOCUMENTATION: I attest that I was physically present for the cullen portions of the service and evaluated the patient with the Physician Transplanter Orchid, and I reviewed and discussed the case with the Physician Transplanter Orchid and made modifications to the Physician Transplanter Orchid's findings and plans of care as documented above LILLIAN FUENTES Mar 29, 2025 09:44 RODERICK ALFORD MD Mar 29, 2025 13:13
--- NOTE | 2025-03-29 17:04 | PN ---
[facility] PROGRESS NOTE Date of Service: Mar 29, 2025 Time of Service: 8:45 SUBJECTIVE: [ ] 03/27/2025: Patient was seen and evaluated bedside, case discussed with RN and no acute overnight events. Patient says he is feeling better, denies chest pain, shortness of breath, palpitations, nausea and vomiting. Morning lab showed sodium trending up to 132, potassium trending down to 3.8, BNP trending up to 1310. Patient is currently on clear liquids, waiting for cardiac clearance before surgery for acute cholecystitis. Continue IV furosemide 40 mg b.i.d., 100 mg daily p.o., Zosyn Q 8. General surgery, Cardiology, Nephrology on board and we will follow up with the recommendations. 03/28/2025: Patient was seen and evaluated bedside in room 420. Case discussed with RN, no acute overnight events. Patient vitals are hemodynamically stable except for heart rate in late 90s and early 100s overnight. Patient is responding well to IV Lasix I and O balance this morning was -6590. Morning lab showed potassium 2.9, started replacing per protocol. HIDA scan was done this morning which was negative for acute cholecystitis. Cardiology recommended resuming Eliquis5 mg b.i.d. for AFib today, transition to torsemide 20 mg daily tomorrow. 03/29/2025: Patient was seen in room 420. He is vitally stable, 106/69, heart rate 83. He has been started on torsemide today and as per Cardiology, he will undergo evaluation for discharge to SNF facility. He continues on Eliquis 5 mg b.i.d. His BNP today is 879. we will continue to follow recommendations from Cardiology REVIEW OF SYSTEMS CONSTITUTIONAL: Denies fevers or chills, reports having malaise and poor oral intake NEUROLOGICAL: Denies headache, amaurosis fugax, motor weakness, sensory d eficit, vertigo/spinning sensation, gait abnormalities, or tremors. ENT: No hearing loss, otalgia, otorrhea, rhinitis, rhinorrhea, hoarseness, or sore throat. CARDIOVASCULAR: Reports having significant lower extremity edema, history of heart failure, denies active chest pain PULMONARY: Reports having dyspnea on exertion SLEEP: Denies morning headaches, daytime somnolence or napping. Denies difficulty falling asleep, staying asleep, waking from sleep. Denies knowledge of snoring. GASTROINTESTINAL: Reports having poor oral intake, denies nausea or vomiting GENITOURINARY: Denies frequency, urgency, nocturia, hematuria or incontinence (Storage/Irritative symptoms.) Low urinary stream, straining to void, urinary intermittency or hesitancy, splitting of the voiding stream, terminal dribbling. ENDOCRINOLOGIC: Denies polyuria, polydipsia, polyphagia or heat/cold intolerances. HEMATOLOGIC: Denies thrombophilia/previous clots, or coagulopathy/bleeding disorders. ONCOLOGIC: Denies personal history of malignancy. DERMATOLOGIC: Denies rashes or pruritus. PSYCHIATRIC: Denies any suicidal or homicidal ideation. Denies hallucinations. PHYSICAL EXAM GENERAL APPEARANCE: The patient is awake, alert, and oriented, in no acute cardiopulmonary distress, appears debilitated NEUROLOGICAL: Cranial nerves II-XII grossly intact. Motor is 5/5 in bilateral upper and lower extremities proximal to distal. No sensory deficits. HEENT: Face is symmetric. Pupils are equal and reactive. Extraocular movements are intact. NECK: Supple. No JVD. No thyromegaly. No submental, submandibular, pre- /postauricular, occipital or supraclavicular lymphadenopathy. CHEST: Normal chest expansion. No Telemetry. LUNGS: minimal crackles noted of the bilateral lung bases CARDIOVASCULAR: Regular. S1 and S2 normal. No appreciable rubs, murmurs or gallops. ABDOMEN: Soft, nontender, and nondistended. There is no rebound, voluntary guarding, or rigidity. : Deferred. No Hough. EXTREMITIES: 3+ pitting edema noted of the bilateral lower extremities SKIN: skin tear noted of the lower back Vital Signs (last 8hr) Date Time Temp Pulse Resp B/P (MAP) Pulse Ox O2 Delivery O2 Flow Rate FiO2 03/29/25 12:00 97.7 83 18 106/69 99 Room Air 03/29/25 11:11 104 18 N/A Room Air 21 LABS: Laboratory: Test 03/29/25 04:03 03/28/25 04:09 Range/Units White Blood Count 12.3 H 4.8-10.8 K/uL Red Blood Count 4.04 L 4.50-6.20 MIL/uL Hemoglobin 13.4 L 14.0-18.0 g/dL Hematocrit 39.6 L 42-54 % Mean Corpuscular Volume 98.0 79-99 fL Mean Corpuscular Hemoglobin 33.2 H 27.0-33.0 pg Mean Corpuscular Hemoglobin Concent 33.8 32.0-36.0 g/dL Red Cell Distribution Width 13.9 11.0-15.5 % Platelet Count 211 130-400 K/uL Mean Platelet Volume 8.7 7.5-10.5 fL Nucleated Red Blood Cells 0.0 0.0-0.19 % Sodium Level 128 L 136-145 mmol/L Potassium Level 3.5 3.5-5.1 mmol/L Chloride Level 91 L 101-111 mmol/L Carbon Dioxide Level 32 21-32 mmol/L Blood Urea Nitrogen 16 7-18 mg/dL Creatinine 0.8 0.5-1.3 mg/dL Glomerular Filtration Rate Calc 91 >90 mL/min Random Glucose 101 70-105 mg/dL Total Calcium 7.8 L 8.5-10.1 mg/dL Magnesium Level 1.70 L 1.80-2.40 mg/dL B-Type Natriuretic Peptide 879 H 0-100 pg/mL Immature Granulocyte % (Auto) 0.6 0-1 % Neutrophils (%) (Auto) 80.6 H 40.0-77.0 % Lymphocytes (%) (Auto) 8.1 L 21.0-51.0 % Monocytes (%) (Auto) 9.4 3.0-13.0 % Eosinophils (%) (Auto) 1.0 0.0-8.0 % Basophils (%) (Auto) 0.3 0.0-5.0 % Neutrophils # (Auto) 9.3 H 1.8-7.7 K/uL Lymphocytes # (Auto) 0.9 L 1.0-4.8 K/uL Monocytes # (Auto) 1.1 H 0.1-1.0 K/uL Eosinophils # (Auto) 0.11 0.00-0.70 K/uL Basophils # (Auto) 0.03 0.00-0.20 K/uL Absolute Immature Granulocyte (auto 0.07 0-1 K/uL Phosphorus Level 3.3 2.5-4.9 mg/dL Current Medications Medications (Trade) Dose Ordered Sig/Dixie Route PRN Reason Start Time Stop Time Status Last Admin Dose Admin Acetaminophen (TYLenol 325MG TAB) 650 mg Q6H PRN PO MILD PAIN (1-3) 03/26/25 16:30 04/25/25 16:29 Apixaban (EliquIS) 5 mg BID PO 03/28/25 21:00 04/27/25 20:59 03/29/25 07:58 5 MG Chlordiazepoxide HCl (LIBrium 25 MG CAP) 25 mg Q6H PRN PO ALCOHOL WITHDRAWAL PROTOCOL 03/26/25 18:30 04/02/25 18:29 Enoxaparin Sodium (Lovenox (Pharmacy To Dose)) 1 unit BID SQ 03/26/25 21:00 03/26/25 17:26 DC Furosemide (LASix 40MG VIAL) 40 mg BID IV 03/26/25 21:00 03/29/25 13:13 DC 03/29/25 07:57 40 MG Home Med (Home Medication) BID IH 03/27/25 09:00 04/26/25 08:59 Ipratropium [place] (AtrovENT UD) 0.5 mg Q6H PRN IH SHORTNESS OF BREATH 03/26/25 16:30 04/25/25 16:29 03/26/25 19:39 0.5 MG Magnesium Sulfate 50 ml @ 0 mls/hr PROTOCOL IV 03/26/25 16:30 04/25/25 16:29 03/29/25 07:08 25 MLS/HR Magnesium Sulfate 50 ml @ 0 mls/hr PROTOCOL IV 03/28/25 12:30 03/28/25 12:29 DC Metoprolol Succinate (TopROL XL) 200 mg DAILY PO 03/27/25 09:00 04/26/25 08:59 03/29/25 07:58 200 MG Neomycin/ Polymyxin/ Bacitracin (Triple Antibiotic Ointment) left lower back and right elbow DAILY11 TP 03/27/25 11:00 04/26/25 10:59 03/29/25 12:22 1 APPL Ondansetron HCl (zoFRAN 4MG INJ) 4 mg Q6H PRN IVP NAUSEA/VOMITING 03/26/25 16:30 04/25/25 16:29 Pantoprazole Sodium (PROTonix 40MG TAB) 40 mg DAILY PO 03/27/25 09:00 04/26/25 08:59 03/29/25 07:57 40 MG Pharmacy Profile Note (Pharmacy Communication) 1 each ONCE MISC 03/27/25 12:30 03/27/25 12:32 DC Pharmacy Profile Note (Pharmacy Communication) 1 each PROTOCOL PRN MISC ETOH Withdrawal Score changes 03/26/25 18:30 04/02/25 18:29 Piperacillin Sod/ Tazobactam Sod (Zosyn 3.375gm+NS 50ml) 3.375 gm Q8H IVPB 03/26/25 16:30 03/27/25 12:31 DC 03/27/25 10:40 3.375 GM Piperacillin Sod/ Tazobactam Sod (Zosyn 3.375gm+NS 50ml) 3.375 gm Q8H IVPB 03/27/25 19:30 04/06/25 19:29 03/29/25 12:20 3.375 GM Potassium Chloride 100 ml @ 100 mls/hr AD PRN IV POTASSIUM PROTOCOL 03/26/25 22:30 04/25/25 22:29 03/28/25 09:51 100 MLS/HR Potassium Chloride (K-Dur 10meq Sr Tab) 10 meq BID PO 03/28/25 21:00 04/27/25 20:59 03/29/25 07:58 10 MEQ Potassium Chloride (K-Dur/Klor-Con 20meq) 20 meq AD PRN PO POTASSIUM PROTOCOL 03/26/25 22:30 04/25/25 22:29 03/29/25 15:27 20 MEQ Potassium Chloride (K-Dur/Klor-Con 20meq) 40 meq Q1H PO 03/28/25 12:30 03/28/25 13:31 DC 03/28/25 16:32 40 MEQ Potassium Chloride (KCl 10% Elixir 20meq/15ml) 20 meq AD PRN PO POTASSIUM PROTOCOL 03/26/25 22:30 04/25/25 22:29 Sodium Chloride (NS 50ml) 50 ml AD IV 03/26/25 16:30 03/26/25 16:21 DC Torsemide (Demadex) 20 mg BID PO 03/29/25 21:00 04/28/25 20:59 DIAGNOSTICS / RADIOLOGY: [ ] ASSESSMENT: Acute decompensated heart failure exacerbation, POA History of advanced dilated cardiomyopathy with LVEF of 30-35%, POA Acute cholecystitis, POA Status post fall, POA History of chronic atrial fibrillation maintained on chronic anticoagulation with Eliquis, POA Moderate aortic valvular stenosis, POA Severe mitral regurgitation, POA Severe tricuspid valve regurgitation, POA Status post fall with lower back pain and left flank pain, POA Large subcutaneous left flank hematoma measuring 20 cm x 4 cm, POA History of hypertension, POA Hypervolemic hyponatremia, POA Hyperkalemia, POA Leukocytosis, POA PLAN: Acute decompensated systolic heart failure exacerbation, POA * Patient is known case of systolic heart failure taking torsemide 10 mg * On arrival patient's BNP 1190, * 2D echo from 02/24/2025 shows LVEF 30-35, potassium is severely dilated, right ventricular severely dilated * Patient was started on IV furosemide 40 mg b.i.d, which has been discontinued and patient restarted on torsemide 20 mg BID p.o. (03/29) * Input and output balance was -6590 on 03/28/2025 * Cardiology on board, we will follow up with the recommendations. Acute cholecystitis, POA * Patient had right upper quadrant pain on arrival * Abdominal ultrasound showed cholelithiasis with gallbladder wall thickening, suggesting acute cholecystitis * CT abdomen showed small gallstones, thickened gallbladder wall. Cholecystitis can not be excluded * Continue Zosyn IV Q8 * Patient is currently on clear liquid, surgery on board and we will follow up with the recommendation * HIDA scan performed on 03/28/2025 showed negative for acute cholecystitis. Hypervolemic hyponatremia, POA * on presentation sodium was 127 * patient placed on 1.5L fluid restriction. * Start torsemide 20 mg b.i.d. * we will trend sodium levels daily History of chronic atrial fibrillation maintained on chronic anticoagulation with Eliquis, POA * patient is known case of Afib on chronic eliquis 5mg daily at home * imaging showed Large subcutaneous left flank hematoma measuring 20 cm x 4 cm * Eliquis on hold secondary to recent trauma and do also want to hold any Lovenox but would like to reinitiate Eliquis in the next 24-36 hours of H&H is hold. * Eliquis 5 mg b.i.d. 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 I reviewed the documentation, medical decision making, and treatment plan as noted by the resident physician above. I agree with the findings and plan of care. BHAVIN FLORENCE IV, MD, MUHAMMAD H MD Mar 29, 2025 17:04
[2025-03-29] MEDS: TORSEMIDE 20 MG TAB PO SCH (20:20)
[2025-03-29] MEDS: MAGNESIUM 2GM PREMIX 50ML 50 ML IV ONE (21:02)
[2025-03-30] VITALS (9 sets, daily range): BP systolic 103–122; BP diastolic 65–87; PULSE 95–113; RESP 18–20; TEMP 97.6–98.4; O2SAT 96–98
--- NOTE | 2025-03-30 00:10 | PN ---
FOLLOWUP PROGRESS NOTE SUBJECTIVE: The patient is a 75-year-old male with a history of known CHF and a history of valvular heart disease. He initially presented with anasarca, volume overload. The patient was started on diuretics, and his urine output has greatly improved. He has had acute on chronic renal failure in the hospital as well as significant hyponatremia, and the patient is being seen as a followup visit for all of the above. REVIEW OF SYSTEMS: GENERAL: He is feeling improved. HEENT: No change in vision. No change in hearing. CARDIOVASCULAR: There are no current chest pains or palpitations. PULMONARY: Shortness of breath has improved. GASTROINTESTINAL: He is tolerating diet. MUSCULOSKELETAL: Complains of weakness. PHYSICAL EXAMINATION: VITAL SIGNS: Blood pressure is 106/69, pulse 80. GENERAL: He is chronically ill male, elderly. Lying in bed on the medical floor. HEENT: Head is atraumatic. Pupils are equal, round, and reactive to light. Oropharynx is without exudate. Nares are clear. NECK: There is no JVP. There is no thyromegaly. CARDIOVASCULAR: Regular. There is no S3 or S4 gallop. LUNGS: Coarse with equal thoracic movement. ABDOMEN: Soft and nontender. EXTREMITIES: Reveal no clubbing or cyanosis. NEUROLOGICAL: He is awake. He is alert. LABORATORY DATA: Sodium 128, BUN 16, creatinine 0.8, hemoglobin 13, and hematocrit 39. IMPRESSION: 1. Acute on chronic renal failure. 2. Congestive heart failure. 3. Electrolyte abnormalities. 4. Hypertension. PLAN: The patient continues with the diuretics as prescribed. The patient's workup is ongoing per Cardiology. Creatinine has remained fairly stable. The patient continues with hyponatremia and is encouraged in regards to fluid restriction. We will continue to monitor the patient closely. The patient and family with multiple questions, all of which were answered. TID: [id number] RECEIPT: [id number]
--- NOTE | 2025-03-30 01:10 | HMCIMG ---
EXAM: CR Chest, 1 View CLINICAL HISTORY: Follow-up CHF COMPARISON: Chest radiograph dated 03/26/2025 at 14:23 EDT. FINDINGS: LUNGS: No focal mass, consolidation, or acute pulmonary abnormality identified. Left lower lobe is not completely visualized due to limited field of view. PLEURAL SPACES: No pleural effusion or pneumothorax detected. MEDIASTINUM: Mild cardiomegaly. Right-sided chest port catheter in situ with the catheter tip appropriately located at the cavoatrial junction. Mediastinal contours are otherwise stable. BONES: No acute or aggressive osseous abnormality. IMPRESSION: * Mild cardiomegaly. * Right-sided chest port catheter with tip at the cavoatrial junction. * Left lower lobe not fully evaluated due to limited field of view. * No acute pulmonary process identified. Compared with the prior study, there is no significant interval change. Mild cardiomegaly and right-sided chest port catheter positioning remain stable, with the tip again seen at the cavoatrial junction. No new pulmonary opacity, effusion, or pneumothorax identified. Left lower lobe remains partially excluded from the current field of view. /[place]
[2025-03-30 04:20] LABS: NUCLEATED RED BLOOD CELLS 0.0 % (0.0-0.19); PLATELET COUNT (AUTO) 201.0 K/uL (130-400); RED BLOOD CELL COUNT(AUTO) 4.1 MIL/uL (4.50-6.20); RED CELL DISTRIBUTION WIDTH 13.8 % (11.0-15.5); WHITE BLOOD COUNT (AUTO) 11.4 K/uL (4.8-10.8)
[2025-03-30 04:38] LABS: CREATININE 0.9 mg/dL (0.5-1.3); GLOMERULAR FILTR. RATE CALC 88.0 mL/min (>90); GLUCOSE,RANDOM 101.0 mg/dL (70-105); SODIUM SERUM 131.0 mmol/L (136-145); UREA NITROGEN, BLOOD 16.0 mg/dL (7-18)
--- NOTE | 2025-03-30 09:07 | CONS ---
HPI: This is a 75-year-old male with permanent atrial fibrillation, heart failure with reduced ejection fraction, chronic venous insufficiency, COPD, hypertension, previous tobacco use, and history of colon cancer. He has had 9 falls since August 2024. He was admitted 03/26/2025 after a fall at home resulting in trauma to the left flank. He underwent CT scan of the abdomen and pelvis which showed some gallstones with thickened gallbladder wall, small pleural effusions and left flank subcutaneous hematoma/edema formation. He subsequent underwent a HIDA scan 03/28/2025 which was deemed negative for cholecystitis. He is in atrial fibrillation with ventricular rates in the 90s up to 120 beats per minute. He has rare PVCs. His most recent echocardiogram 02/24/2025 showed an ejection fraction of 30 to 35% with severe inferoseptal, apical septal and apical hypokinesis with normal diastolic function, mildly reduced right ventricular systolic function, severely dilated left atrium with LA SVI 59 mL/m, moderate aortic valve stenosis with peak/mean pressure gradient of 25/14 mmHg with mild aortic valve regurgitation, severe mitral valve regurgitation and severe tricuspid valve regurgitation. He has had variable ejection fraction over the last several years. He had an ejection fraction of 45 to 50% in September 2017, 40 to 45% in December 2020, 35% in May 2023, 35 to 40% in January 2024 and 40% in July 2024. White blood count 11.4, hemoglobin 13.2, hematocrit 39.9, platelets 201, creatinine 0.9, potassium 3.3, magnesium 1.80. Cumulative I and O balance is - 28051.0 mL. His most recent blood pressure is 122/77. He has had nine falls since August 2024 despite use of his walker. According to his , he becomes very unsteady secondary to significant edema to lower extremities. Prior to his admission, he had edema up to his thighs. He reports shortness of breath with minimal exertion and inability to lay flat. Today states that he is feeling well and denies significant shortness of breath. Patient History: PAST MEDICAL HISTORY: As noted above SOCIAL HISTORY: He lives with his . He is a nonsmoker. SURGICAL HISTORY: Hand surgery Appendectomy Allergies: Coded Allergies: No Known Drug Allergies (Unverified Allergy, Unknown, 10/01/17) Additional RoS: Negative with the exception of HPI Vital Signs Vital Signs 03/29/25 03/30/25 03/30/25 20:00 04:00 06:40 Temp 97.7 Pulse 105 Resp 20 B/P (MAP) 122/77 Pulse Ox 97 O2 Delivery N/A Room Air O2 Flow Rate 0 FiO2 21 Appearance: Well dev, well nourished Eyes: EOM Normal, Normal Conjuctivae/eyelid Ear/Nose/Mouth/Throat: Landmarks WNL Neck: Symmetric, trach midline Cardiovascular: Abnormal (Irregular irregular rhythm) Respiratory: Lungs clear Laboratory Tests Test 03/28/25 14:01 03/28/25 16:47 03/29/25 04:03 03/30/25 04:09 Range/Units Sodium Level 133 128 131 136-145 mmol/L Potassium Level 3.5 3.5 3.3 3.5-5.1 mmol/L Chloride Level 91 91 92 101-111 mmol/L Carbon Dioxide Level 38 32 33 21-32 mmol/L Blood Urea Nitrogen 18 16 16 7-18 mg/dL Creatinine 1.1 0.8 0.9 0.5-1.3 mg/dL Glomerular Filtration Rate Calc 69 91 88 >90 mL/min Random Glucose 133 101 101 70-105 mg/dL Total Calcium 8.2 7.8 8.0 8.5-10.1 mg/dL Magnesium Level 1.60 2.00 1.70 1.80 1.80-2.40 mg/dL White Blood Count 12.3 11.4 4.8-10.8 K/uL Red Blood Count 4.04 4.10 4.50-6.20 MIL/uL Hemoglobin 13.4 13.2 14.0-18.0 g/dL Hematocrit 39.6 39.9 42-54 % Mean Corpuscular Volume 98.0 97.3 79-99 fL Mean Corpuscular Hemoglobin 33.2 32.2 27.0-33.0 pg Mean Corpuscular Hemoglobin Concent 33.8 33.1 32.0-36.0 g/dL Red Cell Distribution Width 13.9 13.8 11.0-15.5 % Platelet Count 211 201 130-400 K/uL Mean Platelet Volume 8.7 8.6 7.5-10.5 fL Nucleated Red Blood Cells 0.0 0.0 0.0-0.19 % B-Type Natriuretic Peptide 879 0-100 pg/mL ASSESSMENT: 1. Permanent atrial fibrillation. 2. Acute combined systolic and diastolic heart failure exacerbation. 3. PLAN: 1. He has permanent atrial fibrillation with inadequate rate control and a longstanding cardiomyopathy with most recent echocardiogram showing an ejection fraction of 30 to 35%. He has class III/ambulatory class IV heart failure symptoms on maximally tolerated metoprolol succinate 200 mg daily. He has been intolerant to Dillan, Arb, ARNI and spironolactone. 2. He had been scheduled for elective biventricular ICD with AV node ablation i n April 2025. We will proceed with the procedure on this admission. 3. We will hold Eliquis starting now and determine the timing of the procedure. 4. Continue with metoprolol succinate 200 mg daily for rate control. Continue torsemide 20 mg twice daily. GHASSAN KEITA Mar 30, 2025 09:07
--- NOTE | 2025-03-30 13:25 | PN ---
[facility] PROGRESS NOTE Date of Service: Mar 30, 2025 Time of Service: 13:16 HISTORY OF PRESENT ILLNESS: This is a 75-year-old male with history of advanced cardiomyopathy with LVEF of 30-35%, history of moderate valvular aortic stenosis, history of severe mitral valve regurgitation, COPD, history of severe tricuspid valve regurgitation, hypertension, atrial fibrillation maintained on chronic anticoagulation with Eliquis who presented to the ER for further evaluation of shortness of breadth, significant lower extremity edema as well as intermittent right upper quadrant abdominal pain. Patient is hard of hearing and patient's was present at bedside to assist with further history. reports that patient has been having progressive lower extremity edema ongoing for several days. Patient has been having dyspnea on exertion as well. Patient is followed by Dr. Lackey with Cardiology as outpatient. He is also followed by Dr. 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 Patient has a history of advanced cardiomyopathy with valvulopathy. He is currently maintained on 10 mg of torsemide daily. He is on high-dose metoprolol succinate for management of atrial fibrillation as well. He gets short of breath with minimal ambulation, he has significant lower extremity edema which has been worsening as well. Patient has been following up with his PCP for issues with gallbladder related pain. He was previously told that he has cholelithiasis. He gets intermittent right upper quadrant pain. Oral intake has been poor as well. Patient fell about two days ago, and he has been having some back pain involving the left flank and lower back. He denies syncope or hitting his head with the fall. He recently had a CT head without contrast in December after he fell and hit his head. states that CT head without contrast was negative. Since the fall, patient developed a small wound in the back for which patient's has been applying band aid to it. Patient reports having history of atrial fibrillation and is maintained on chronic anticoagulation with Eliquis. Last dose of Eliquis was earlier this morning. on Presentation to the hospital, patient was noted to be afebrile with T-max of 97.3 F, heart rate of 83 with EKG showed findings of atrial fibrillation with PVCs and prolonged QTC[place] [address], hemoglobin of 15.4, platelet count of 506050. BMP showed sodium of 127, potassium 5.3, BUN of 21, creatinine of 1.0, BNP of 1190. Chest x-ray showed mild bilateral infiltrates, abdominal ultrasound showed findings suggestive of acute cholecystitis. SUBJECTIVE: 03/27/2025: Patient was seen and evaluated bedside, case discussed with RN and no acute overnight events. Patient says he is feeling better, denies chest pain, shortness of breath, palpitations, nausea and vomiting. Morning lab showed sodium trending up to 132, potassium trending down to 3.8, BNP trending up to 1310. Patient is currently on clear liquids, waiting for cardiac clearance before surgery for acute cholecystitis. Continue IV furosemide 40 mg b.i.d., 100 mg daily p.o., Zosyn Q 8. General surgery, Cardiology, Nephrology on board and we will follow up with the recommendations. 03/28/2025: Patient was seen and evaluated bedside in room 420. Case discussed with RN, no acute overnight events. Patient vitals are hemodynamically stable except for heart rate in late 90s and early 100s overnight. Patient is responding well to IV Lasix I and O balance this morning was -6590. Morning lab showed potassium 2.9, started replacing per protocol. HIDA scan was done this morning which was negative for acute cholecystitis. Cardiology recommended resuming Eliquis5 mg b.i.d. for AFib today, transition to torsemide 20 mg daily tomorrow. 03/29/2025: Patient was seen in room 420. He is vitally stable, 106/69, heart rate 83. He has been started on torsemide today and as per Cardiology, he will undergo evaluation for discharge to SNF facility. He continues on Eliquis 5 mg b.i.d. His BNP today is 879. we will continue to follow recommendations from Cardiology 03/30/25: Patient was seen in room 420. Patient reports no overnight events. Patient denies any chest pain, abdominal pain, shortness of breath, palpit ations, nausea and vomiting. HIDA scan was done this morning which was negative for acute cholecystitis. Cardiology are planning to schedule to place AICD with AV node ablation by Sunday and his eliquis was held from today. Currently on torsemide 20mg REVIEW OF SYSTEMS CONSTITUTIONAL: Denies fevers or chills, reports having malaise and poor oral intake NEUROLOGICAL: Denies headache, amaurosis fugax, motor weakness, sensory deficit, vertigo/spinning sensation, gait abnormalities, or tremors. ENT: No hearing loss, otalgia, otorrhea, rhinitis, rhinorrhea, hoarseness, or sore throat. CARDIOVASCULAR: Reports having significant lower extremity edema, history of heart failure, denies active chest pain PULMONARY: Reports having dyspnea on exertion SLEEP: Denies morning headaches, daytime somnolence or napping. Denies difficulty falling asleep, staying asleep, waking from sleep. Denies knowledge of snoring. GASTROINTESTINAL: Reports having poor oral intake, denies nausea or vomiting GENITOURINARY: Denies frequency, urgency, nocturia, hematuria or incontinence (Storage/Irritative symptoms.) Low urinary stream, straining to void, urinary intermittency or hesitancy, splitting of the voiding stream, terminal dribbling. ENDOCRINOLOGIC: Denies polyuria, polydipsia, polyphagia or heat/cold intolerances. HEMATOLOGIC: Denies thrombophilia/previous clots, or coagulopathy/bleeding disorders. ONCOLOGIC: Denies personal history of malignancy. DERMATOLOGIC: Denies rashes or pruritus. PSYCHIATRIC: Denies any suicidal or homicidal ideation. Denies hallucinations. PHYSICAL EXAM GENERAL APPEARANCE: The patient is awake, alert, and oriented, in no acute cardiopulmonary distress, appears debilitated NEUROLOGICAL: Cranial nerves II-XII grossly intact. Motor is 5/5 in bilateral upper and lower extremities proximal to distal. No sensory deficits. HEENT: Face is symmetric. Pupils are equal and reactive. Extraocular movements are intact. NECK: Supple. No JVD. No thyromegaly. No submental, submandibular, pre- /postauricular, occipital or supraclavicular lymphadenopathy. CHEST: Normal chest expansion. No Telemetry. LUNGS: minimal crackles noted of the bilateral lung bases CARDIOVASCULAR: Regular. S1 and S2 normal. No appreciable rubs, murmurs or gallops. ABDOMEN: Soft, nontender, and nondistended. There is no rebound, voluntary guarding, or rigidity. : Deferred. No Hough. EXTREMITIES: 3+ pitting edema noted of the bilateral lower extremities SKIN: skin tear noted of the lower back Vital Signs (last 8hr) Date Time Temp Pulse Resp B/P (MAP) Pulse Ox O2 Delivery O2 Flow Rate FiO2 03/30/25 09:28 97 Room Air* 0 21 03/30/25 08:00 98.2 113 19 119/79 97 Room Air 03/30/25 06:40 105 20 N/A Room Air 21 LABS: Laboratory: Test 03/30/25 04:09 03/29/25 04:03 Range/Units White Blood Count 11.4 H 4.8-10.8 K/uL Red Blood Count 4.10 L 4.50-6.20 MIL/uL Hemoglobin 13.2 L 14.0-18.0 g/dL Hematocrit 39.9 L 42-54 % Mean Corpuscular Volume 97.3 79-99 fL Mean Corpuscular Hemoglobin 32.2 27.0-33.0 pg Mean Corpuscular Hemoglobin Concent 33.1 32.0-36.0 g/dL Red Cell Distribution Width 13.8 11.0-15.5 % Platelet Count 201 130-400 K/uL Mean Platelet Volume 8.6 7.5-10.5 fL Nucleated Red Blood Cells 0.0 0.0-0.19 % Sodium Level 131 L 136-145 mmol/L Potassium Level 3.3 L 3.5-5.1 mmol/L Chloride Level 92 L 101-111 mmol/L Carbon Dioxide Level 33 H 21-32 mmol/L Blood Urea Nitrogen 16 7-18 mg/dL Creatinine 0.9 0.5-1.3 mg/dL Glomerular Filtration Rate Calc 88 >90 mL/min Random Glucose 101 70-105 mg/dL Total Calcium 8.0 L 8.5-10.1 mg/dL Magnesium Level 1.80 1.80-2.40 mg/dL B-Type Natriuretic Peptide 879 H 0-100 pg/mL Current Medications Medications (Trade) Dose Ordered Sig/Dixie Route PRN Reason Start Time Stop Time Status Last Admin Dose Admin Acetaminophen (TYLenol 325MG TAB) 650 mg Q6H PRN PO MILD PAIN (1-3) 03/26/25 16:30 04/25/25 16:29 Apixaban (EliquIS) 5 mg BID PO 03/28/25 21:00 03/30/25 09:08 DC 03/29/25 20:20 5 MG Chlordiazepoxide HCl (LIBrium 25 MG CAP) 25 mg Q6H PRN PO ALCOHOL WITHDRAWAL PROTOCOL 03/26/25 18:30 04/02/25 18:29 Enoxaparin Sodium (Lovenox (Pharmacy To Dose)) 1 unit BID SQ 03/26/25 21:00 03/26/25 17:26 DC Furosemide (LASix 40MG VIAL) 40 mg BID IV 03/26/25 21:00 03/29/25 13:13 DC 03/29/25 07:57 40 MG Home Med (Home Medication) BID IH 03/27/25 09:00 04/26/25 08:59 Ipratropium Elma (AtrovENT UD) 0.5 mg Q6H PRN IH SHORTNESS OF BREATH 03/26/25 16:30 04/25/25 16:29 03/26/25 19:39 0.5 MG Magnesium Sulfate 50 ml @ 0 mls/hr PROTOCOL IV 03/26/25 16:30 04/25/25 16:29 03/29/25 07:08 25 MLS/HR Magnesium Sulfate 50 ml @ 0 mls/hr PROTOCOL IV 03/28/25 12:30 03/28/25 12:29 DC Metoprolol Succinate (TopROL XL) 200 mg DAILY PO 03/27/25 09:00 04/26/25 08:59 03/30/25 09:25 200 MG Neomycin/ Polymyxin/ Bacitracin (Triple Antibiotic Ointment) left lower back and right elbow DAILY11 TP 03/27/25 11:00 04/26/25 10:59 03/30/25 11:36 1 APPL Ondansetron HCl (zoFRAN 4MG INJ) 4 mg Q6H PRN IVP NAUSEA/VOMITING 03/26/25 16:30 04/25/25 16:29 Pantoprazole Sodium (PROTonix 40MG TAB) 40 mg DAILY PO 03/27/25 09:00 04/26/25 08:59 03/30/25 09:25 40 MG Pharmacy Profile Note (Pharmacy Communication) 1 each ONCE MISC 03/27/25 12:30 03/27/25 12:32 DC Pharmacy Profile Note (Pharmacy Communication) 1 each PROTOCOL PRN MISC ETOH Withdrawal Score changes 03/26/25 18:30 04/02/25 18:29 Piperacillin Sod/ Tazobactam Sod (Zosyn 3.375gm+NS 50ml) 3.375 gm Q8H IVPB 03/26/25 16:30 03/27/25 12:31 DC 03/27/25 10:40 3.375 GM Piperacillin Sod/ Tazobactam Sod (Zosyn 3.375gm+NS 50ml) 3.375 gm Q8H IVPB 03/27/25 19:30 04/06/25 19:29 03/30/25 11:36 3.375 GM Potassium Chloride 100 ml @ 100 mls/hr AD PRN IV POTASSIUM PROTOCOL 03/26/25 22:30 04/25/25 22:29 03/28/25 09:51 100 MLS/HR Potassium Chloride (K-Dur 10meq Sr Tab) 10 meq BID PO 03/28/25 21:00 04/27/25 20:59 03/30/25 09:25 10 MEQ Potassium Chloride (K-Dur/Klor-Con 20meq) 20 meq AD PRN PO POTASSIUM PROTOCOL 03/26/25 22:30 04/25/25 22:29 03/30/25 05:17 20 MEQ Potassium Chloride (K-Dur/Klor-Con 20meq) 40 meq Q1H PO 03/28/25 12:30 03/28/25 13:31 DC 03/28/25 16:32 40 MEQ Potassium Chloride (KCl 10% Elixir 20meq/15ml) 20 meq AD PRN PO POTASSIUM PROTOCOL 03/26/25 22:30 04/25/25 22:29 Sodium Chloride (NS 50ml) 50 ml AD IV 03/26/25 16:30 03/26/25 16:21 DC Torsemide (Demadex) 20 mg BID PO 03/29/25 21:00 04/28/25 20:59 03/30/25 09:25 20 MG DIAGNOSTICS / RADIOLOGY: [address] [address] IMAGING REPORT Signed PATIENT: NURIS SENIOR MR#: [id number] : 1950 SEX: M AGE: 75 LOCATION: [facility] ORDER 2300 STATUS: ADM IN REPORT#: [id number] SERVICE 0600 REASON: followup CHF ORDERING PHYSICIAN: RODERICK ALFORD MD PROCEDURE: CXR1VW - CHEST 1VW EXAM: CR Chest, 1 View CLINICAL HISTORY: Follow-up CHF COMPARISON: Chest radiograph dated 03/26/2025 at 14:23 EDT. FINDINGS: LUNGS: No focal mass, consolidation, or acute pulmonary abnormality identified. Left lower lobe is not completely visualized due to limited field of view. PLEURAL SPACES: No pleural effusion or pneumothorax detected. MEDIASTINUM: Mild cardiomegaly. Right-sided chest port catheter in situ with the catheter tip appropriately located at the cavoatrial junction. Mediastinal contours are otherwise stable. BONES: No acute or aggressive osseous abnormality. IMPRESSION: * Mild cardiomegaly. * Right-sided chest port catheter with tip at the cavoatrial junction. * Left lower lobe not fully evaluated due to limited field of view. * No acute pulmonary process identified. Compared with the prior study, there is no significant interval change. Mild cardiomegaly and right-sided chest port catheter positioning remain stable, with the tip again seen at the cavoatrial junction. No new pulmonary opacity, effusion, or pneumothorax identified. Left lower lobe remains partially excluded from the current field of view. /[place] DICTATED BY: CHASE AGRZA MD DATE: 03/30/25209 ELECTRONICALLY SIGNED BY: CHASE GARZA MD DATE: 03/30/25209 ASSESSMENT: Acute decompensated heart failure exacerbation, POA 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 Status post fall, POA History of chronic atrial fibrillation maintained on chronic anticoagulation with Eliquis, POA Moderate aortic valvular stenosis, POA Severe mitral regurgitation, POA Severe tricuspid valve regurgitation, POA Status post fall with lower back pain and left flank pain, POA Large subcutaneous left flank hematoma measuring 20 cm x 4 cm, POA History of hypertension, POA Hypervolemic hyponatremia, POA Hyperkalemia, POA Leukocytosis, POA PLAN: Acute decompensated systolic heart failure exacerbation, POA * Patient is known case of systolic heart failure taking torsemide 10 mg * On arrival patient's BNP 1190, * 2D echo from 02/24/2025 shows LVEF 30-35, potassium is severely dilated, right ventricular severely dilated * Patient was started on IV furosemide 40 mg b.i.d, which has been discontinued and patient restarted on torsemide 20 mg BID p.o. (03/29) * Input and output balance was -5225 on 03/30/2025 * Cardiology on board, we will follow up with the recommendations. Cholelithiasis, POA * Patient had right upper quadrant pain on arrival * Abdominal ultrasound showed cholelithiasis with gallbladder wall thickening, suggesting acute cholecystitis * CT abdomen showed small gallstones, thickened gallbladder wall. * Continue Zosyn IV Q8 * Patient is currently on clear liquid, surgery on board and we will follow up with the recommendation * HIDA scan performed on 03/28/2025 showed negative for acute cholecystitis. Hypervolemic hyponatremia, POA * on presentation sodium was 127 * patient placed on 1.5L fluid restriction. * Start torsemide 20 mg b.i.d. * we will trend sodium levels daily History of chronic atrial fibrillation maintained on chronic anticoagulation with Eliquis, POA * patient is known case of Afib on chronic eliquis 5mg daily at home * imaging showed Large subcutaneous left flank hematoma measuring 20 cm x 4 cm * Eliquis on hold secondary to recent trauma and do also want to hold any Lovenox but would like to reinitiate Eliquis in the next 24-36 hours of H&H is hold. * Eliquis 5 mg b.i.d. held by Cardiology on 03/30/2025 for probable AICD placement and AV node ablation on Sunday (04/01/25) Patient has a wound in the back from recent fall, Wound Care requested All labs will be repeated in the morning Reports drinking a glass of whiskey every day for long time for about 40 years, we will keep patient on CIWA protocol with low-dose Librium ATTESTATION BY PHYSICIAN I have seen and examined the patient. I reviewed the documentation, medical decision making, and treatment plan as noted by the resident physician above. I agree with the findings and plan of care. MANJULA GARCIA MD, SHAJI MD Mar 30, 2025 13:25
--- NOTE | 2025-03-30 21:53 | PN ---
FOLLOWUP PROGRESS NOTE SUBJECTIVE: A 75-year-old male with a history of known cardiomyopathy. The patient presented to the hospital with congestive heart failure. The patient was started on diuretics and urine output has greatly improved. The patient's weight has declined by 9 kg since admission and he is being seen as a followup visit for all of the above. REVIEW OF SYSTEMS: He is feeling improved. HEENT: No change in vision. No change in hearing. CARDIOVASCULAR: There are no current chest pains or palpitations. PULMONARY: His shortness of breath has improved. GASTROINTESTINAL: He is tolerating a diet. MUSCULOSKELETAL: Complains of weakness. PHYSICAL EXAMINATION: VITAL SIGNS: Blood pressure 123/77, pulse in 90s. GENERAL: He is a chronically ill male, lying in bed on the medical floor. HEENT: Head is atraumatic. Pupils were equal, round and reactive to light. Oropharynx without exudate. Nares clear. NECK: There is no JVP. There is no thyromegaly, no mass. CARDIOVASCULAR: Regular. There is no S3 or S4 gallop. LUNGS: Coarse with equal thoracic movement. ABDOMEN: Soft, nondistended, nontender. EXTREMITIES: Reveal no clubbing or cyanosis. NEUROLOGIC: He is awake. He is alert. LABORATORY DATA: Hemoglobin 13, hematocrit 39, white cell count is 11,000. Sodium 131, BUN 16, creatinine 0.9. IMPRESSION: * Acute on chronic renal failure. * Hyponatremia. * Hypervolemia. * Cardiomyopathy. * Hypertension. PLAN: The patient's serum sodium is slowly improving. The patient has been encouraged in regards to the fluid restriction. The patient's creatinine remains stable. The patient remains on the diuretics and we will continue to follow closely. All labs can be repeated in the morning. TID: [id number] RECEIPT: [id number]
[2025-03-31] VITALS (9 sets, daily range): BP systolic 104–130; BP diastolic 70–78; PULSE 92–120; RESP 17–20; TEMP 97.4–98.1; O2SAT 97–99
--- NOTE | 2025-03-31 08:29 | PN ---
This is a 75-year-old male with permanent atrial fibrillation, heart failure with reduced ejection fraction, chronic venous insufficiency, COPD, hypertension, previous tobacco use, and history of colon cancer. He has had 9 falls since August 2024. He was admitted 03/26/2025 after a fall at home resulting in trauma to the left flank. He was found to be significantly volume overloaded and was aggressively diuresed. He is in atrial fibrillation with ventricular rates in the 100s. His most recent echocardiogram 02/24/2025 showed an ejection fraction of 30 to 35% with severe inferoseptal, apical septal and apical hypokinesis with normal diastolic function, mildly reduced right ventricular systolic function, severely dilated left atrium with LA SVI 59 mL/m, moderate aortic valve stenosis with peak/mean pressure gradient of 25/14 mmHg with mild aortic valve regurgitation, severe mitral valve regurgitation and severe tricuspid valve regurgitation. White blood count 11.4, hemoglobin 13.2, hematocrit 39.9, platelets 201, creatinine 0.9, potassium 3.3, magnesium 1.80 (03/30/2025). Cumulative I and O balance is -92467.0 mL. His most recent blood pressure is 130/76. He offers up no new cardiac complaints this morning. He does report pain to the soles of his feet. ASSESSMENT: 1. Permanent atrial fibrillation with inadequate rate control. 2. Acute combined systolic and diastolic heart failure exacerbation. 3. Frequent falls. 4. COPD. 5. Chronic venous insufficiency. PLAN: 1. He has permanent atrial fibrillation with inadequate rate control and a longstanding cardiomyopathy with most recent echocardiogram showing an ejection fraction of 30 to 35%. He has class III/ambulatory class IV heart failure symptoms on maximally tolerated metoprolol succinate 200 mg daily. He has been intolerant to Dillan, Arb, ARNI and spironolactone. 2. He had been scheduled for elective biventricular ICD with AV node ablation in April 2025. We will proceed with the procedure on this admission. 3. We will hold Eliquis starting now and determine the timing of the procedure. 4. Continue with metoprolol succinate 200 mg daily for rate control. Continue torsemide 20 mg twice daily. Vitals/Labs Vital Signs Date Time Temp Pulse Resp B/P (MAP) Pulse Ox O2 Delivery O2 Flow Rate FiO2 03/31/25 07:50 98.1 97 17 130/76 97 Room Air 03/31/25 01:09 21 03/30/25 20:00 0 GHASSAN KEITA PAC Mar 31, 2025 08:29
--- NOTE | 2025-03-31 13:13 | NUR ---
[facility] Follow-up: Patient re-assessed by wound healing team. See wound assessment. Assessment and recommendations provided to primary nurse. Education provided. Addendum: 04/01/25 at 0835 by JEZ TAVAREZ RN RN/ Amended: Links added.
--- NOTE | 2025-03-31 15:00 | NUR ---
BETADINE APPLICATION APPLIED BETADINE TO THE BLISTER ON THE RLE. PATIENT TOLERATED WELL.
--- NOTE | 2025-03-31 15:28 | PN ---
[facility] PROGRESS NOTE Date of Service: Mar 31, 2025 Time of Service: 15:20 HISTORY OF PRESENT ILLNESS: This is a 75-year-old male with history of advanced cardiomyopathy with LVEF of 30-35%, history of moderate valvular aortic stenosis, history of severe mitral valve regurgitation, COPD, history of severe tricuspid valve regurgitation, hypertension, atrial fibrillation maintained on chronic anticoagulation with Eliquis who presented to the ER for further evaluation of shortness of breadth, significant lower extremity edema as well as intermittent right upper quadrant abdominal pain. Patient is hard of hearing and patient's was present at bedside to assist with further history. reports that patient has been having progressive lower extremity edema ongoing for several days. Patient has been having dyspnea on exertion as well. Patient is followed by Dr. Lackey with Cardiology as outpatient. He is also followed by Dr. Mata as outpatient and he has been upcoming appointment to evaluate for ICD/AUTO SERVICE IN[employer] D therapy evaluation. Patient has a history of advanced cardiomyopathy with valvulopathy. He is currently maintained on 10 mg of torsemide daily. He is on high-dose metoprolol succinate for management of atrial fibrillation as well. He gets short of breath with minimal ambulation, he has significant lower extremity edema which has been worsening as well. Patient has been following up with his PCP for issues with gallbladder related pain. He was previously told that he has cholelithiasis. He gets intermittent right upper quadrant pain. Oral intake has been poor as well. Patient fell about two days ago, and he has been having some back pain involving the left flank and lower back. He denies syncope or hitting his head with the fall. He recently had a CT head without contrast in December after he fell and hit his head. states that CT head without contrast was negative. Since the fall, patient developed a small wound in the back for which patient's has been applying band aid to it. Patient reports having history of atrial fibrillation and is maintained on chronic anticoagulation with Eliquis. Last dose of Eliquis was earlier this morning. on Presentation to the hospital, patient was noted to be afebrile with T-max of 97.3 F, heart rate of 83 with EKG showed findings of atrial fibrillation with PVCs and prolonged QTC. [place] [address], hemoglobin of 15.4, platelet count of 229520. BMP showed sodium of 127, potassium 5.3, BUN of 21, creatinine of 1.0, BNP of 1190. Chest x-ray showed mild bilateral infiltrates, abdominal ultrasound showed findings suggestive of acute cholecystitis. SUBJECTIVE: 03/27/2025: Patient was seen and evaluated bedside, case discussed with RN and no acute overnight events. Patient says he is feeling better, denies chest pain, shortness of breath, palpitations, nausea and vomiting. Morning lab showed sodium trending up to 132, potassium trending down to 3.8, BNP trending up to 1310. Patient is currently on clear liquids, waiting for cardiac clearance before surgery for acute cholecystitis. Continue IV furosemide 40 mg b.i.d., 100 mg daily p.o., Zosyn Q 8. General surgery, Cardiology, Nephrology on board and we will follow up with the recommendations. 03/28/2025: Patient was seen and evaluated bedside in room 420. Case discussed with RN, no acute overnight events. Patient vitals are hemodynamically stable except for heart rate in late 90s and early 100s overnight. Patient is responding well to IV Lasix I and O balance this morning was -6590. Morning lab showed potassium 2.9, started replacing per protocol. HIDA scan was done this morning which was negative for acute cholecystitis. Cardiology recommended resuming Eliquis5 mg b.i.d. for AFib today, transition to torsemide 20 mg daily tomorrow. 03/29/2025: Patient was seen in room 420. He is vitally stable, 106/69, heart rate 83. He has been started on torsemide today and as per Cardiology, he will undergo evaluation for discharge to SNF facility. He continues on Eliquis 5 mg b.i.d. His BNP today is 879. we will continue to follow recommendations from Cardiology 03/30/25: Patient was seen in room 420. Patient reports no overnight events. Patient denies any chest pain, abdominal pain, shortness of breath, palpit ations, nausea and vomiting. HIDA scan was done this morning which was negative for acute cholecystitis. Cardiology are planning to schedule to place AICD with AV node ablation by Sunday and his eliquis was held from today. Currently on torsemide 20mg 03/31/25: Patient was seen in room 420. Patient reports no overnight events. Patient is scheduled for procedure to place AICD with AV node ablation tomorrow by Dr. Mata. Patient denies any chest pain, abdominal pain, shortness of breath, palpitations, nausea and vomiting. He is vitally stable, 118/78, Pulse rate of 92. he is continuing on torsemide 20mg and metoprolol 200mg REVIEW OF SYSTEMS CONSTITUTIONAL: Denies fevers or chills, reports having malaise and poor oral intake NEUROLOGICAL: Denies headache, amaurosis fugax, motor weakness, sensory deficit, vertigo/spinning sensation, gait abnormalities, or tremors. ENT: No hearing loss, otalgia, otorrhea, rhinitis, rhinorrhea, hoarseness, or sore throat. CARDIOVASCULAR: Reports having significant lower extremity edema, history of heart failure, denies active chest pain PULMONARY: Reports having dyspnea on exertion SLEEP: Denies morning headaches, daytime somnolence or napping. Denies difficulty falling asleep, staying asleep, waking from sleep. Denies knowledge of snoring. GASTROINTESTINAL: Reports having poor oral intake, denies nausea or vomiting GENITOURINARY: Denies frequency, urgency, nocturia, hematuria or incontinence (Storage/Irritative symptoms.) Low urinary stream, straining to void, urinary intermittency or hesitancy, splitting of the voiding stream, terminal dribbling. ENDOCRINOLOGIC: Denies polyuria, polydipsia, polyphagia or heat/cold intolerances. HEMATOLOGIC: Denies thrombophilia/previous clots, or coagulopathy/bleeding disorders. ONCOLOGIC: Denies personal history of malignancy. DERMATOLOGIC: Denies rashes or pruritus. PSYCHIATRIC: Denies any suicidal or homicidal ideation. Denies hallucinations. PHYSICAL EXAM GENERAL APPEARANCE: The patient is awake, alert, and oriented, in no acute cardiopulmonary distress, appears debilitated NEUROLOGICAL: Cranial nerves II-XII grossly intact. Motor is 5/5 in bilateral upper and lower extremities proximal to distal. No sensory deficits. HEENT: Face is symmetric. Pupils are equal and reactive. Extraocular movements are intact. NECK: Supple. No JVD. No thyromegaly. No submental, submandibular, pre- /postauricular, occipital or supraclavicular lymphadenopathy. CHEST: Normal chest expansion. No Telemetry. LUNGS: minimal crackles noted of the bilateral lung bases CARDIOVASCULAR: Regular. S1 and S2 normal. No appreciable rubs, murmurs or gallops. ABDOMEN: Soft, nontender, and nondistended. There is no rebound, voluntary guarding, or rigidity. : Deferred. No Hough. EXTREMITIES: 3+ pitting edema noted of the bilateral lower extremities SKIN: skin tear noted of the lower back Vital Signs (last 8hr) Date Time Temp Pulse Resp B/P (MAP) Pulse Ox O2 Delivery O2 Flow Rate FiO2 03/31/25 11:28 98.1 92 18 118/78 98 Room Air 03/31/25 09:06 97 Room Air* 0 21 03/31/25 07:50 98.1 97 17 130/76 97 Room Air LABS: Laboratory: Test 03/31/25 09:20 03/30/25 04:09 Range/Units Potassium Level 3.3 L 3.5-5.1 mmol/L White Blood Count 11.4 H 4.8-10.8 K/uL Red Blood Count 4.10 L 4.50-6.20 MIL/uL Hemoglobin 13.2 L 14.0-18.0 g/dL Hematocrit 39.9 L 42-54 % Mean Corpuscular Volume 97.3 79-99 fL Mean Corpuscular Hemoglobin 32.2 27.0-33.0 pg Mean Corpuscular Hemoglobin Concent 33.1 32.0-36.0 g/dL Red Cell Distribution Width 13.8 11.0-15.5 % Platelet Count 201 130-400 K/uL Mean Platelet Volume 8.6 7.5-10.5 fL Nucleated Red Blood Cells 0.0 0.0-0.19 % Sodium Level 131 L 136-145 mmol/L Chloride Level 92 L 101-111 mmol/L Carbon Dioxide Level 33 H 21-32 mmol/L Blood Urea Nitrogen 16 7-18 mg/dL Creatinine 0.9 0.5-1.3 mg/dL Glomerular Filtration Rate Calc 88 >90 mL/min Random Glucose 101 70-105 mg/dL Total Calcium 8.0 L 8.5-10.1 mg/dL Magnesium Level 1.80 1.80-2.40 mg/dL Current Medications Medications (Trade) Dose Ordered Sig/Dixie Route PRN Reason Start Time Stop Time Status Last Admin Dose Admin Acetaminophen (TYLenol 325MG TAB) 650 mg Q6H PRN PO MILD PAIN (1-3) 03/26/25 16:30 04/25/25 16:29 Apixaban (EliquIS) 5 mg BID PO 03/28/25 21:00 03/30/25 09:08 DC 03/29/25 20:20 5 MG Chlordiazepoxide HCl (LIBrium 25 MG CAP) 25 mg Q6H PRN PO ALCOHOL WITHDRAWAL PROTOCOL 03/26/25 18:30 04/02/25 18:29 Enoxaparin Sodium (Lovenox (Pharmacy To Dose)) 1 unit BID SQ 03/26/25 21:00 03/26/25 17:26 DC Furosemide (LASix 40MG VIAL) 40 mg BID IV 03/26/25 21:00 03/29/25 13:13 DC 03/29/25 07:57 40 MG Home Med (Home Medication) BID IH 03/27/25 09:00 04/26/25 08:59 Ipratropium Marion (AtrovENT UD) 0.5 mg Q6H PRN IH SHORTNESS OF BREATH 03/26/25 16:30 04/25/25 16:29 03/26/25 19:39 0.5 MG Magnesium Sulfate 50 ml @ 0 mls/hr PROTOCOL IV 03/26/25 16:30 04/25/25 16:29 03/29/25 07:08 25 MLS/HR Magnesium Sulfate 50 ml @ 0 mls/hr PROTOCOL IV 03/28/25 12:30 03/28/25 12:29 DC Metoprolol Succinate (TopROL XL) 200 mg DAILY PO 03/27/25 09:00 04/26/25 08:59 03/31/25 09:03 200 MG Neomycin/ Polymyxin/ Bacitracin (Triple Antibiotic Ointment) left lower back and right elbow DAILY11 TP 03/27/25 11:00 04/26/25 10:59 03/31/25 13:15 1 APPL Ondansetron HCl (zoFRAN 4MG INJ) 4 mg Q6H PRN IVP NAUSEA/VOMITING 03/26/25 16:30 04/25/25 16:29 Pantoprazole Sodium (PROTonix 40MG TAB) 40 mg DAILY PO 03/27/25 09:00 04/26/25 08:59 03/31/25 09:03 40 MG Pharmacy Profile Note (Pharmacy Communication) 1 each ONCE MISC 03/27/25 12:30 03/27/25 12:32 DC Pharmacy Profile Note (Pharmacy Communication) 1 each PROTOCOL PRN MISC ETOH Withdrawal Score changes 03/26/25 18:30 04/02/25 18:29 Piperacillin Sod/ Tazobactam Sod (Zosyn 3.375gm+NS 50ml) 3.375 gm Q8H IVPB 03/26/25 16:30 03/27/25 12:31 DC 03/27/25 10:40 3.375 GM Piperacillin Sod/ Tazobactam Sod (Zosyn 3.375gm+NS 50ml) 3.375 gm Q8H IVPB 03/27/25 19:30 04/06/25 19:29 03/31/25 13:15 3.375 GM Potassium Chloride 100 ml @ 100 mls/hr AD PRN IV POTASSIUM PROTOCOL 03/26/25 22:30 04/25/25 22:29 03/28/25 09:51 100 MLS/HR Potassium Chloride (K-Dur 10meq Sr Tab) 10 meq BID PO 03/28/25 21:00 04/27/25 20:59 03/31/25 09:03 10 MEQ Potassium Chloride (K-Dur/Klor-Con 20meq) 20 meq AD PRN PO POTASSIUM PROTOCOL 03/26/25 22:30 04/25/25 22:29 03/31/25 13:15 20 MEQ Potassium Chloride (K-Dur/Klor-Con 20meq) 40 meq Q1H PO 03/28/25 12:30 03/28/25 13:31 DC 03/28/25 16:32 40 MEQ Potassium Chloride (KCl 10% Elixir 20meq/15ml) 20 meq AD PRN PO POTASSIUM PROTOCOL 03/26/25 22:30 04/25/25 22:29 Sodium Chloride (NS 50ml) 50 ml AD IV 03/26/25 16:30 03/26/25 16:21 DC Torsemide (Demadex) 20 mg BID PO 03/29/25 21:00 04/28/25 20:59 03/31/25 09:03 20 MG DIAGNOSTICS / RADIOLOGY: [address] [address] IMAGING REPORT Signed PATIENT: NURIS SENIOR MR#: [id number] : 1950 SEX: M AGE: 75 LOCATION: [facility] ORDER 99 STATUS: ADM IN REPORT#: [id number] SERVICE 06 REASON: followup CHF ORDERING PHYSICIAN: RODERICK ALFORD MD PROCEDURE: CXR1VW - CHEST 1VW EXAM: CR Chest, 1 View CLINICAL HISTORY: Follow-up CHF COMPARISON: Chest radiograph dated 03/26/2025 at 14:23 EDT. FINDINGS: LUNGS: No focal mass, consolidation, or acute pulmonary abnormality identified. Left lower lobe is not completely visualized due to limited field of view. PLEURAL SPACES: No pleural effusion or pneumothorax detected. MEDIASTINUM: Mild cardiomegaly. Right-sided chest port catheter in situ with the catheter tip appropriately located at the cavoatrial junction. Mediastinal contours are otherwise stable. BONES: No acute or aggressive osseous abnormality. IMPRESSION: * Mild cardiomegaly. * Right-sided chest port catheter with tip at the cavoatrial junction. * Left lower lobe not fully evaluated due to limited field of view. * No acute pulmonary process identified. Compared with the prior study, there is no significant interval change. Mild cardiomegaly and right-sided chest port catheter positioning remain stable, with the tip again seen at the cavoatrial junction. No new pulmonary opacity, effusion, or pneumothorax identified. Left lower lobe remains partially excluded from the current field of view. /[place] DICTATED BY: CHASE GARZA MD DATE: 03/30/25209 ELECTRONICALLY SIGNED BY: CHASE GARZA MD DATE: 03/30/25209 ASSESSMENT: Acute decompensated heart failure exacerbation, POA 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 Status post fall, POA History of chronic atrial fibrillation maintained on chronic anticoagulation with Eliquis, POA Moderate aortic valvular stenosis, POA Severe mitral regurgitation, POA Severe tricuspid valve regurgitation, POA Status post fall with lower back pain and left flank pain, POA Large subcutaneous left flank hematoma measuring 20 cm x 4 cm, POA History of hypertension, POA Hypervolemic hyponatremia, POA Hyperkalemia, POA Leukocytosis, POA PLAN: Acute decompensated systolic heart failure exacerbation, POA * Patient is known case of systolic heart failure taking torsemide 10 mg * On arrival patient's BNP 1190, * 2D echo from 02/24/2025 shows LVEF 30-35, potassium is severely dilated, right ventricular severely dilated * Patient was started on IV furosemide 40 mg b.i.d, which has been discontinued and patient restarted on torsemide 20 mg BID p.o. (03/29) * Continuing on Metoprolol 200mg. * Input and output balance was -3640 on 03/31/2025 * Cardiology on board, we will follow up with the recommendations. Cholelithiasis, POA * Patient had right upper quadrant pain on arrival * Abdominal ultrasound showed cholelithiasis with gallbladder wall thickening, suggesting acute cholecystitis * CT abdomen showed small gallstones, thickened gallbladder wall. * Continue Zosyn IV Q8 * Patient is currently on clear liquid, surgery on board and we will follow up with the recommendation * HIDA scan performed on 03/28/2025 showed negative for acute cholecystitis. Ruled out cholecystitis. Hypervolemic hyponatremia, POA * on presentation sodium was 127 * patient placed on 1.5L fluid restriction. * Start torsemide 20 mg b.i.d. * we will trend sodium levels daily History of chronic atrial fibrillation maintained on chronic anticoagulation with Eliquis, POA * patient is known case of Afib on chronic eliquis 5mg daily at home * imaging showed Large subcutaneous left flank hematoma measuring 20 cm x 4 cm * Continuing on Metoprolol 200mg. * Eliquis on hold secondary to recent trauma and do also want to hold any Lovenox but would like to reinitiate Eliquis in the next 24-36 hours of H&H is hold. * Eliquis 5 mg b.i.d. was held from 03/30/25 for scheduled procedure of AICD placement and AV node ablation by Dr. Mata tomorrow(04/01/25). 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 I reviewed the documentation, medical decision making, and treatment plan as noted by the resident physician above. I agree with the findings and plan of care. MANJULA GARCIA MD, SHAJI MD Mar 31, 2025 15:28
[2025-03-31 16:51] LABS: IMMATURE GRANULOCYTE ABSOLUTE 0.08 K/uL (0-1); NUCLEATED RED BLOOD CELLS 0.0 % (0.0-0.19); PLATELET COUNT (AUTO) 234 K/uL (130-400); RED BLOOD CELL COUNT(AUTO) 4.30 MIL/uL (4.50-6.20); RED CELL DISTRIBUTION WIDTH 13.9 % (11.0-15.5); WHITE BLOOD COUNT (AUTO) 10.1 K/uL (4.8-10.8)
--- NOTE | 2025-03-31 17:37 | PN ---
PROGRESS NOTE Date of Service: Mar 31, 2025 Time of Service: 17:35 SUBJECTIVE: Patient evaluated at bedside in room 420 for wound care follow up. Patient's at bedside during evaluation. Patient denies any complaints at this time. Patient noted with new fluid filled blister to right lateral leg. REVIEW OF SYSTEMS CONSTITUTIONAL: Denies fever, chills, or fatigue. HEAD/FACE: No signs of trauma. EENT: Denies eye pain, blurred vision, double vision, or light sensitivity. RESPIRATORY: Positive for shortness of breath with exertion CARDIOVASCULAR: Denies chest pain, palpitation, syncope, lower extremity edema GASTROINTESTINAL/ABDOMINAL: Denies abdominal pain, constipation, diarrhea, nausea or vomiting GENITOURINARY: Denies dysuria or hematuria. MUSCULOSKELETAL: Denies joint pain, tenderness, or trauma. INTEGUMENTARY: Denies rash or itchiness NEUROLOGICAL/PSYCH: Denies anxiety, depression, heat or cold intolerance. PHYSICAL EXAM EYES: Anicteric. Pupils equal and reactive. HENT: No oral thrush seen, moist Oral mucosa NECK: Supple, no JVD or thyromegaly. LUNGS: Good air entry. No rales, no rhonchi. CARDIOVASCULAR: S1, S2 regular. No murmur heard, +2-3 edema to bilateral lower legs . ABDOMEN: Soft, non tender, bowel sounds present, no organomegaly CENTRAL NERVOUS SYSTEM: Awake, alert, oriented x 3. No focal deficits. SKIN: Left lower back skin tear noted with granulation, decrease in wound bed size, right elbow skin tear resolved, fluid filled blister noted to right lateral lower leg LYMPHATICS: No peripheral lymphadenopathy MUSCULOSKELETAL: No joint swelling, erythema or tenderness. EXTREMITIES: No cyanosis or clubbing BACK: No deformity GENITOURINARY: No dysuria or hematuria Vital Signs (last 8hr) Date Time Temp Pulse Resp B/P (MAP) Pulse Ox O2 Delivery O2 Flow Rate FiO2 03/31/25 15:55 97.9 96 17 108/70 97 Room Air 03/31/25 11:28 98.1 92 18 118/78 98 Room Air LABS: Laboratory: Test 03/31/25 16:41 03/31/25 09:20 03/30/25 04:09 Range/Units White Blood Count 10.1 4.8-10.8 K/uL Red Blood Count 4.30 L 4.50-6.20 MIL/uL Hemoglobin 13.9 L 14.0-18.0 g/dL Hematocrit 41.6 L 42-54 % Mean Corpuscular Volume 96.7 79-99 fL Mean Corpuscular Hemoglobin 32.3 27.0-33.0 pg Mean Corpuscular Hemoglobin Concent 33.4 32.0-36.0 g/dL Red Cell Distribution Width 13.9 11.0-15.5 % Platelet Count 234 130-400 K/uL Mean Platelet Volume 8.8 7.5-10.5 fL Immature Granulocyte % (Auto) 0.8 0-1 % Neutrophils (%) (Auto) 76.4 40.0-77.0 % Lymphocytes (%) (Auto) 9.1 L 21.0-51.0 % Monocytes (%) (Auto) 9.9 3.0-13.0 % Eosinophils (%) (Auto) 3.2 0.0-8.0 % Basophils (%) (Auto) 0.6 0.0-5.0 % Neutrophils # (Auto) 7.8 H 1.8-7.7 K/uL Lymphocytes # (Auto) 0.9 L 1.0-4.8 K/uL Monocytes # (Auto) 1.0 0.1-1.0 K/uL Eosinophils # (Auto) 0.32 0.00-0.70 K/uL Basophils # (Auto) 0.06 0.00-0.20 K/uL Absolute Immature Granulocyte (auto 0.08 0-1 K/uL Nucleated Red Blood Cells 0.0 0.0-0.19 % Lactic Acid Level 2.2 0.8-2.5 mmol/L Potassium Level 3.3 L 3.5-5.1 mmol/L Sodium Level 131 L 136-145 mmol/L Chloride Level 92 L 101-111 mmol/L Carbon Dioxide Level 33 H 21-32 mmol/L Blood Urea Nitrogen 16 7-18 mg/dL Creatinine 0.9 0.5-1.3 mg/dL Glomerular Filtration Rate Calc 88 >90 mL/min Random Glucose 101 70-105 mg/dL Total Calcium 8.0 L 8.5-10.1 mg/dL Magnesium Level 1.80 1.80-2.40 mg/dL DIAGNOSTICS / RADIOLOGY: [ ] PROBLEM LIST : Medical Problems: Unspecified open wound of left lower back Unspecified open wound of right elbow- resolved Unspecified open wound of right lower leg PLAN: Wound care to Left lower back -Cleanse with normal saline, pat dry, apply Triple antibiotic ointment, cover with adaptic/Vaseline gauze, gauze, and secure with tape change daily and prn Wound care to right lower leg fluid filled blister- Apply betadine daily, leave open to air Keep wounds clean and dry Offloading/reposition q 2 hours Continue IV antibiotics per ID Comorbidities per primary care team Further Management per hospital course. Thank You for the consult and allowing us to participate in the care of this patient. BAYLEE GLORIA [employer] Mar 31, 2025 17:37
--- NOTE | 2025-03-31 23:06 | PN ---
FOLLOWUP PROGRESS NOTE SUBJECTIVE: A 75-year-old male with a history of known cardiomyopathy, initially presented with congestive heart failure. The patient was started on the diuretics and the patient's urine output is greatly improved. The patient's weight has declined while in the hospital. He has had acute on chronic renal failure in the hospital as well as significant hyponatremia and the patient is being seen as a followup visit for all the above. REVIEW OF SYSTEMS: CONSTITUTIONAL: He is feeling much improved. HEENT: No change in vision. No change in hearing. CARDIOVASCULAR: There is no current chest pains or palpitations. PULMONARY: Shortness of breath has improved. GASTROINTESTINAL: He is tolerating a diet. MUSCULOSKELETAL: Complains of weakness. PHYSICAL EXAMINATION: VITAL SIGNS: Blood pressure is 130/76, pulse in the 90s, and afebrile. GENERAL: He is a chronically ill male, elderly, lying in bed on the medical floor. HEENT: Head is atraumatic. Pupils are equal, round and reactive to light. Oropharynx is without exudate. Nares clear. NECK: There is no JVP. There is no thyromegaly. No mass. CARDIOVASCULAR: Regular. There is no S3 or S4 gallop. LUNGS: Coarse with equal thoracic movement. ABDOMEN: Soft, nondistended, and nontender. EXTREMITIES: Reveal no clubbing or cyanosis. NEUROLOGICAL: He is awake. He is alert. LABORATORY DATA: Hemoglobin 13 and hematocrit 39, white blood cell count 11,000, sodium 131, BUN 16, and creatinine 0.9. IMPRESSION: Acute on chronic renal failure. Congestive heart failure. Hyponatremia. Hypertension. PLAN: The patient continues to do well from a general medical standpoint. The patient's pulmonary symptoms are greatly improved. The patient is encouraged to continue with fluid restriction for the hyponatremia. The patient is now on oral diuretics. We will continue to follow closely. Once the patient is discharged, the patient will follow up in the [facility]. TID: [id number] RECEIPT: [id number]
[2025-04-01] VITALS (19 sets, daily range): BP systolic 102–138; BP diastolic 59–78; PULSE 64–101; RESP 16–20; TEMP 97–98.2; O2SAT 96–100
[2025-04-01 05:04] LABS: IMMATURE GRANULOCYTE ABSOLUTE 0.09 K/uL (0-1); NUCLEATED RED BLOOD CELLS 0.0 % (0.0-0.19); PLATELET COUNT (AUTO) 236 K/uL (130-400); RED BLOOD CELL COUNT(AUTO) 4.25 MIL/uL (4.50-6.20); RED CELL DISTRIBUTION WIDTH 13.7 % (11.0-15.5); WHITE BLOOD COUNT (AUTO) 8.5 K/uL (4.8-10.8)
[2025-04-01 05:21] LABS: ASPARTATE AMINOTRANSFERASE 27.0 U/L (10-37); CREATININE 0.9 mg/dL (0.5-1.3); GLOMERULAR FILTR. RATE CALC 88.0 mL/min (>90); GLUCOSE,RANDOM 82.0 mg/dL (70-105); SODIUM SERUM 135.0 mmol/L (136-145); TOTAL PROTEIN, SERUM 5.9 g/dL (6.0-8.3); UREA NITROGEN, BLOOD 13.0 mg/dL (7-18)
--- NOTE | 2025-04-01 07:30 | NUR ---
PT AOX3. RESTING COMFORTABLE IN BED. DENIES ANY PAIN AT THE MOMENT AT BEDSIDE. PT AWARE OF PENDING PROCEDURE. NO FURTHER QUESTIONS AT THIS TIME.
[2025-04-01] MEDS ORDERED: VANCOMYCIN 1G/250ML KIT 500 ML IV ONE (07:59)
[2025-04-01] MEDS ORDERED: LIDOCAINE HCL 1% MDV 50ML VIAL ONE (07:59)
[2025-04-01] MEDS ORDERED: SODIUM BICARB 50MEQ 50ML VIAL 50 ML ONE (08:00)
--- NOTE | 2025-04-01 08:15 | NUR ---
PT TAKEN DOWN FOR PROCEDURE.
[2025-04-01] MEDS ORDERED: MIDAZOLAM HCL 1 MG/ML 2ML VIAL ONE ×3 (08:22→11:11)
[2025-04-01] MEDS ORDERED: HEParin-NS 1,000 UNIT/500 ML 500 ML IV ONE (08:46)
[2025-04-01] MEDS ORDERED: LIDOCAINE HCL 400MG/20ML VIAL ONE (08:47)
[2025-04-01] MEDS ORDERED: IODIXANOL 320 MG/ML 100 ML VIAL ONE (08:59)
--- NOTE | 2025-04-01 09:39 | PN ---
SUBJECTIVE: A 75-year-old male who initially presented with severe cardiomyopathy. The patient is being seen by Cardiology. The patient being seen for possible AICD placement. The patient has had acute on chronic renal failure in the hospital. Creatinine has been elevated. The patient with significant hyponatremia and has been instructed on fluid restriction. He remains on the diuretics and weight has substantially declined since admission, and he is being seen for all of the above. REVIEW OF SYSTEMS: GENERAL: The patient is feeling improved since admission. HEENT: No change in vision. No change in hearing. CARDIOVASCULAR: No current chest pain or palpitations. PULMONARY: The shortness of breath has improved. GI: The patient is tolerating a diet. MUSCULOSKELETAL: Complaints of weakness. PHYSICAL EXAMINATION: VITAL SIGNS: Blood pressure is 130/69, pulse 80s. GENERAL: Chronically ill male elderly lying in bed on the medical floor. HEENT: Atraumatic. Pupils are equal, round and reactive to light. Oropharynx is without exudate. Nares is clear. NECK: There is no JVP. No thyromegaly. CARDIAC: Regular. There is no S3 or S4 gallop. LUNGS: Coarse with equal thoracic movement. ABDOMEN: Soft, nontender, nondistended. EXTREMITIES: Reveal no clubbing, no cyanosis. NEUROLOGIC: He is awake. He is at his baseline. LABORATORY DATA: Sodium 135, potassium 3, BUN 13, creatinine 0.9. IMPRESSION: * Acute renal failure. * Severe cardiomyopathy. * Electrolyte abnormalities. * Hypertension. PLAN: The patient's renal function has remained stable. The patient's urine output is greatly improved with the diuretics. The patient is encouraged with fluid restriction for the hyponatremia. We will continue to follow closely. The patient with multiple questions, all of which were answered. TID: [id number] RECEIPT: [id number]
--- NOTE | 2025-04-01 12:00 | NUR ---
REPORT GIVEN TO MAXIMILIAN MAYFIELD.
--- NOTE | 2025-04-01 14:49 | PN ---
[facility] PROGRESS NOTE Date of Service: Apr 01, 2025 Time of Service: 14:47 HISTORY OF PRESENT ILLNESS: This is a 75-year-old male with history of advanced cardiomyopathy with LVEF of 30-35%, history of moderate valvular aortic stenosis, history of severe mitral valve regurgitation, COPD, history of severe tricuspid valve regurgitation, hypertension, atrial fibrillation maintained on chronic anticoagulation with Eliquis who presented to the ER for further evaluation of shortness of breadth, significant lower extremity edema as well as intermittent right upper quadrant abdominal pain. Patient is hard of hearing and patient's was present at bedside to assist with further history. reports that patient has been having progressive lower extremity edema ongoing for several days. Patient has been having dyspnea on exertion as well. Patient is followed by Dr. Lackey with Cardiology as outpatient. He is also followed by Dr. 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 Patient has a history of advanced cardiomyopathy with valvulopathy. He is currently maintained on 10 mg of torsemide daily. He is on high-dose metoprolol succinate for management of atrial fibrillation as well. He gets short of breath with minimal ambulation, he has significant lower extremity edema which has been worsening as well. Patient has been following up with his PCP for issues with gallbladder related pain. He was previously told that he has cholelithiasis. He gets intermittent right upper quadrant pain. Oral intake has been poor as well. Patient fell about two days ago, and he has been having some back pain involving the left flank and lower back. He denies syncope or hitting his head with the fall. He recently had a CT head without contrast in December after he fell and hit his head. states that CT head without contrast was negative. Since the fall, patient developed a small wound in the back for which patient's has been applying band aid to it. Patient reports having history of atrial fibrillation and is maintained on chronic anticoagulation with Eliquis. Last dose of Eliquis was earlier this morning. on Presentation to the hospital, patient was noted to be afebrile with T-max of 97.3 F, heart rate of 83 with EKG showed findings of atrial fibrillation with PVCs and prolonged QTC. [place] [address], hemoglobin of 15.4, platelet count of [id number]. BMP showed sodium of 127, potassium 5.3, BUN of 21, creatinine of 1.0, BNP of 1190. Chest x-ray showed mild bilateral infiltrates, abdominal ultrasound showed findings suggestive of acute cholecystitis. SUBJECTIVE: 03/27/2025: Patient was seen and evaluated bedside, case discussed with RN and no acute overnight events. Patient says he is feeling better, denies chest pain, shortness of breath, palpitations, nausea and vomiting. Morning lab showed sodium trending up to 132, potassium trending down to 3.8, BNP trending up to 1310. Patient is currently on clear liquids, waiting for cardiac clearance before surgery for acute cholecystitis. Continue IV furosemide 40 mg b.i.d., 100 mg daily p.o., Zosyn Q 8. General surgery, Cardiology, Nephrology on board and we will follow up with the recommendations. 03/28/2025: Patient was seen and evaluated bedside in room 420. Case discussed with RN, no acute overnight events. Patient vitals are hemodynamically stable except for heart rate in late 90s and early 100s overnight. Patient is responding well to IV Lasix I and O balance this morning was -6590. Morning lab showed potassium 2.9, started replacing per protocol. HIDA scan was done this morning which was negative for acute cholecystitis. Cardiology recommended resuming Eliquis5 mg b.i.d. for AFib today, transition to torsemide 20 mg daily tomorrow. 03/29/2025: Patient was seen in room 420. He is vitally stable, 106/69, heart rate 83. He has been started on torsemide today and as per Cardiology, he will undergo evaluation for discharge to SNF facility. He continues on Eliquis 5 mg b.i.d. His BNP today is 879. we will continue to follow recommendations from Cardiology 03/30/25: Patient was seen in room 420. Patient reports no overnight events. Patient denies any chest pain, abdominal pain, shortness of breath, palpit ations, nausea and vomiting. HIDA scan was done this morning which was negative for acute cholecystitis. Cardiology are planning to schedule to place AICD with AV node ablation by Sunday and his eliquis was held from today. Currently on torsemide 20mg 03/31/25: Patient was seen in room 420. Patient reports no overnight events. Patient is scheduled for procedure to place AICD with AV node ablation tomorrow by Dr. Mata. Patient denies any chest pain, abdominal pain, shortness of breath, palpitations, nausea and vomiting. He is vitally stable, 118/78, Pulse rate of 92. he is continuing on torsemide 20mg and metoprolol 200mg. 04/01/25: Patient was undergoing AICD placement with AV node ablation today by Rudi Mata. REVIEW OF SYSTEMS CONSTITUTIONAL: Denies fevers or chills, reports having malaise and poor oral intake NEUROLOGICAL: Denies headache, amaurosis fugax, motor weakness, sensory deficit, vertigo/spinning sensation, gait abnormalities, or tremors. ENT: No hearing loss, otalgia, otorrhea, rhinitis, rhinorrhea, hoarseness, or sore throat. CARDIOVASCULAR: Reports having significant lower extremity edema, history of heart failure, denies active chest pain PULMONARY: Reports having dyspnea on exertion SLEEP: Denies morning headaches, daytime somnolence or napping. Denies difficulty falling asleep, staying asleep, waking from sleep. Denies knowledge of snoring. GASTROINTESTINAL: Reports having poor oral intake, denies nausea or vomiting GENITOURINARY: Denies frequency, urgency, nocturia, hematuria or incontinence (Storage/Irritative symptoms.) Low urinary stream, straining to void, urinary intermittency or hesitancy, splitting of the voiding stream, terminal dribbling. ENDOCRINOLOGIC: Denies polyuria, polydipsia, polyphagia or heat/cold intolerances. HEMATOLOGIC: Denies thrombophilia/previous clots, or coagulopathy/bleeding disorders. ONCOLOGIC: Denies personal history of malignancy. DERMATOLOGIC: Denies rashes or pruritus. PSYCHIATRIC: Denies any suicidal or homicidal ideation. Denies hallucinations. PHYSICAL EXAM GENERAL APPEARANCE: The patient is awake, alert, and oriented, in no acute cardiopulmonary distress, appears debilitated NEUROLOGICAL: Cranial nerves II-XII grossly intact. Motor is 5/5 in bilateral upper and lower extremities proximal to distal. No sensory deficits. HEENT: Face is symmetric. Pupils are equal and reactive. Extraocular movements are intact. NECK: Supple. No JVD. No thyromegaly. No submental, submandibular, pre- /postauricular, occipital or supraclavicular lymphadenopathy. CHEST: Normal chest expansion. No Telemetry. LUNGS: minimal crackles noted of the bilateral lung bases CARDIOVASCULAR: Regular. S1 and S2 normal. No appreciable rubs, murmurs or gallops. ABDOMEN: Soft, nontender, and nondistended. There is no rebound, voluntary guarding, or rigidity. : Deferred. No Hough. EXTREMITIES: 3+ pitting edema noted of the bilateral lower extremities SKIN: skin tear noted of the lower back Vital Signs (last 8hr) Date Time Temp Pulse Resp B/P (MAP) Pulse Ox O2 Delivery O2 Flow Rate FiO2 04/01/25 13:35 90 118/75 96 Nasal Cannula 2.0 04/01/25 13:05 91 118/76 100 Nasal Cannula 2.0 04/01/25 12:50 94 122/75 99 Nasal Cannula 2.0 04/01/25 12:35 91 119/69 99 Nasal Cannula 2.0 04/01/25 12:20 91 110/59 99 Nasal Cannula 2.0 04/01/25 12:05 90 20 108/78 98 Nasal Cannula 2.0 04/01/25 08:00 97.9 89 16 130/69 99 Room Air LABS: Laboratory: Test 04/01/25 04:32 03/31/25 09:20 Range/Units White Blood Count 8.5 4.8-10.8 K/uL Red Blood Count 4.25 L 4.50-6.20 MIL/uL Hemoglobin 13.7 L 14.0-18.0 g/dL Hematocrit 40.7 L 42-54 % Mean Corpuscular Volume 95.8 79-99 fL Mean Corpuscular Hemoglobin 32.2 27.0-33.0 pg Mean Corpuscular Hemoglobin Concent 33.7 32.0-36.0 g/dL Red Cell Distribution Width 13.7 11.0-15.5 % Platelet Count 236 130-400 K/uL Mean Platelet Volume 8.7 7.5-10.5 fL Immature Granulocyte % (Auto) 1.1 H 0-1 % Neutrophils (%) (Auto) 73.4 40.0-77.0 % Lymphocytes (%) (Auto) 10.8 L 21.0-51.0 % Monocytes (%) (Auto) 10.4 3.0-13.0 % Eosinophils (%) (Auto) 3.5 0.0-8.0 % Basophils (%) (Auto) 0.8 0.0-5.0 % Neutrophils # (Auto) 6.2 1.8-7.7 K/uL Lymphocytes # (Auto) 0.9 L 1.0-4.8 K/uL Monocytes # (Auto) 0.9 0.1-1.0 K/uL Eosinophils # (Auto) 0.30 0.00-0.70 K/uL Basophils # (Auto) 0.07 0.00-0.20 K/uL Absolute Immature Granulocyte (auto 0.09 0-1 K/uL Nucleated Red Blood Cells 0.0 0.0-0.19 % Sodium Level 135 L 136-145 mmol/L Potassium Level 3.0 *L 3.5-5.1 mmol/L Chloride Level 94 L 101-111 mmol/L Carbon Dioxide Level 31 21-32 mmol/L Blood Urea Nitrogen 13 7-18 mg/dL Creatinine 0.9 0.5-1.3 mg/dL Glomerular Filtration Rate Calc 88 >90 mL/min Random Glucose 82 70-105 mg/dL Lactic Acid Level 1.8 0.8-2.5 mmol/L Total Calcium 8.5 8.5-10.1 mg/dL Total Bilirubin 2.1 H 0.2-1.0 mg/dL Aspartate Amino Transf (AST/SGOT) 27 10-37 U/L Alanine Aminotransferase (ALT/SGPT) 22 12-78 U/L Alkaline Phosphatase 54 50-136 U/L C-Reactive Protein, Quantitative 32.00 H 0.5-3.0 mg/L B-Type Natriuretic Peptide 1340 H 0-100 pg/mL Total Protein 5.9 L 6.0-8.3 g/dL Albumin 2.5 L 3.5-5.0 g/dL Procalcitonin < 0.05 L 0.05-0.5 ng/mL Current Medications Medications (Trade) Dose Ordered Sig/Dixie Route PRN Reason Start Time Stop Time Status Last Admin Dose Admin Acetaminophen (TYLenol 325MG TAB) 650 mg Q6H PRN PO MILD PAIN (1-3) 03/26/25 16:30 04/25/25 16:29 Acetaminophen (TYLenol 500MG TAB) 1,000 mg Q6H PRN PO MILD PAIN (1-3) 04/01/25 12:00 05/01/25 11:59 Acetaminophen/ Codeine Phosphate (TYLenol-coDEINE TAB) 1 tab Q4H PRN PO MODERATE PAIN (4-6) 04/01/25 12:00 05/01/25 11:59 Acetaminophen/ Codeine Phosphate (TYLenol-coDEINE TAB) 2 tab Q4H PRN PO SEVERE PAIN (7-10) 04/01/25 12:00 05/01/25 11:59 Apixaban (EliquIS) 5 mg BID PO 03/28/25 21:00 03/30/25 09:08 DC 03/29/25 20:20 5 MG Chlordiazepoxide HCl (LIBrium 25 MG CAP) 25 mg Q6H PRN PO ALCOHOL WITHDRAWAL PROTOCOL 03/26/25 18:30 04/02/25 18:29 Enoxaparin Sodium (Lovenox (Pharmacy To Dose)) 1 unit BID SQ 03/26/25 21:00 03/26/25 17:26 DC Furosemide (LASix 40MG VIAL) 40 mg BID IV 03/26/25 21:00 03/29/25 13:13 DC 03/29/25 07:57 40 MG Home Med (Home Medication) BID IH 03/27/25 09:00 04/26/25 08:59 Ipratropium Moro (AtrovENT UD) 0.5 mg Q6H PRN IH SHORTNESS OF BREATH 03/26/25 16:30 04/25/25 16:29 03/26/25 19:39 0.5 MG Magnesium Sulfate 50 ml @ 0 mls/hr PROTOCOL IV 03/26/25 16:30 04/25/25 16:29 03/29/25 07:08 25 MLS/HR Magnesium Sulfate 50 ml @ 0 mls/hr PROTOCOL IV 03/28/25 12:30 03/28/25 12:29 DC Metoprolol Succinate (TopROL XL) 100 mg DAILY PO 04/02/25 09:00 05/02/25 08:59 Metoprolol Succinate (TopROL XL) 200 mg DAILY PO 03/27/25 09:00 04/01/25 11:39 DC 03/31/25 09:03 200 MG Neomycin/ Polymyxin/ Bacitracin (Triple Antibiotic Ointment) left lower back and right elbow DAILY11 TP 03/27/25 11:00 04/26/25 10:59 03/31/25 13:15 1 APPL Ondansetron HCl (zoFRAN 4MG INJ) 4 mg Q6H PRN IVP NAUSEA/VOMITING 03/26/25 16:30 04/25/25 16:29 Pantoprazole Sodium (PROTonix 40MG TAB) 40 mg DAILY PO 03/27/25 09:00 04/26/25 08:59 03/31/25 09:03 40 MG Pharmacy Profile Note (Pharmacy Communication) 1 each ONCE MISC 03/27/25 12:30 03/27/25 12:32 DC Pharmacy Profile Note (Pharmacy Communication) 1 each PROTOCOL PRN MISC ETOH Withdrawal Score changes 03/26/25 18:30 04/02/25 18:29 Piperacillin Sod/ Tazobactam Sod (Zosyn 3.375gm+NS 50ml) 3.375 gm Q8H IVPB 03/26/25 16:30 03/27/25 12:31 DC 03/27/25 10:40 3.375 GM Piperacillin Sod/ Tazobactam Sod (Zosyn 3.375gm+NS 50ml) 3.375 gm Q8H IVPB 03/27/25 19:30 04/06/25 19:29 04/01/25 04:02 3.375 GM Potassium Chloride 100 ml @ 100 mls/hr AD PRN IV POTASSIUM PROTOCOL 03/26/25 22:30 04/25/25 22:29 04/01/25 06:19 100 MLS/HR Potassium Chloride (K-Dur 10meq Sr Tab) 10 meq BID PO 03/28/25 21:00 04/27/25 20:59 03/31/25 20:58 10 MEQ Potassium Chloride (K-Dur/Klor-Con 20meq) 20 meq AD PRN PO POTASSIUM PROTOCOL 03/26/25 22:30 04/25/25 22:29 03/31/25 13:15 20 MEQ Potassium Chloride (K-Dur/Klor-Con 20meq) 40 meq Q1H PO 03/28/25 12:30 03/28/25 13:31 DC 03/28/25 16:32 40 MEQ Potassium Chloride (KCl 10% Elixir 20meq/15ml) 20 meq AD PRN PO POTASSIUM PROTOCOL 03/26/25 22:30 04/25/25 22:29 Sodium Chloride (NS 50ml) 50 ml AD IV 03/26/25 16:30 03/26/25 16:21 DC Torsemide (Demadex) 20 mg BID PO 03/29/25 21:00 04/28/25 20:59 03/31/25 20:58 20 MG DIAGNOSTICS / RADIOLOGY: [ ] ASSESSMENT: Acute decompensated heart failure exacerbation, POA 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 Status post fall, POA History of chronic atrial fibrillation maintained on chronic anticoagulation with Eliquis, POA Moderate aortic valvular stenosis, POA Severe mitral regurgitation, POA Severe tricuspid valve regurgitation, POA Status post fall with lower back pain and left flank pain, POA Large subcutaneous left flank hematoma measuring 20 cm x 4 cm, POA History of hypertension, POA Hypervolemic hyponatremia, POA Hyperkalemia, POA Leukocytosis, POA PLAN: Acute decompensated systolic heart failure exacerbation, POA * Patient is known case of systolic heart failure taking torsemide 10 mg * On arrival patient's BNP 1190, * 2D echo from 02/24/2025 shows LVEF 30-35, potassium is severely dilated, right ventricular severely dilated * Patient was started on IV furosemide 40 mg b.i.d, which has been discontinued and patient restarted on torsemide 20 mg BID p.o. (03/29) * Continuing on Metoprolol 200mg. * Input and output balance was -3640 on 03/31/2025 * Cardiology on board, we will follow up with the recommendations. Cholelithiasis, POA * Patient had right upper quadrant pain on arrival * Abdominal ultrasound showed cholelithiasis with gallbladder wall thickening, suggesting acute cholecystitis * CT abdomen showed small gallstones, thickened gallbladder wall. * Continue Zosyn IV Q8 * Patient is currently on clear liquid, surgery on board and we will follow up with the recommendation * HIDA scan performed on 03/28/2025 showed negative for acute cholecystitis. Ruled out cholecystitis. Hypervolemic hyponatremia, POA * On presentation sodium was 127 * patient placed on 1.5L fluid restriction. * Start torsemide 20 mg b.i.d. * we will trend sodium levels daily History of chronic atrial fibrillation maintained on chronic anticoagulation with Eliquis, POA * patient is known case of Afib on chronic eliquis 5mg daily at home * imaging showed Large subcutaneous left flank hematoma measuring 20 cm x 4 cm * Continuing on Metoprolol 200mg. * Eliquis on hold secondary to recent trauma and do also want to hold any Lovenox but would like to reinitiate Eliquis in the next 24-36 hours of H&H is hold. * Eliquis 5 mg b.i.d. was held from 03/30/25 for scheduled procedure of AICD placement and AV node ablation by Dr. Mata. * Patient underwent AICD placement and AV node ablation by Dr. Mata today (04/01/25). 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 I reviewed the documentation, medical decision making, and treatment plan as noted by the resident physician above. I agree with the findings and plan of care. MANJULA GARCIA MD, SHAJI MD Apr 01, 2025 14:49
[2025-04-02] VITALS (10 sets, daily range): BP systolic 99–116; BP diastolic 53–69; PULSE 90–96; RESP 16–18; TEMP 97.4–98.2; O2SAT 95–98
[2025-04-02 03:51] LABS: IMMATURE GRANULOCYTE ABSOLUTE 0.06 K/uL (0-1); NUCLEATED RED BLOOD CELLS 0.0 % (0.0-0.19); PLATELET COUNT (AUTO) 216 K/uL (130-400); RED BLOOD CELL COUNT(AUTO) 3.88 MIL/uL (4.50-6.20); RED CELL DISTRIBUTION WIDTH 13.6 % (11.0-15.5); WHITE BLOOD COUNT (AUTO) 8.6 K/uL (4.8-10.8)
[2025-04-02 04:02] LABS: CREATININE 1.0 mg/dL (0.5-1.3); GLOMERULAR FILTR. RATE CALC 78.0 mL/min (>90); GLUCOSE,RANDOM 83.0 mg/dL (70-105); SODIUM SERUM 136.0 mmol/L (136-145); UREA NITROGEN, BLOOD 13.0 mg/dL (7-18)
--- NOTE | 2025-04-02 05:19 | HMCIMG ---
EXAM: CR Chest, 2 View. CLINICAL HISTORY: COPD COMPARISON: 03/29/2025 FINDINGS: LUNGS: The lungs show no infiltrate or other acute finding. PLEURAL SPACES: No evidence of pleural effusion or pneumothorax. MEDIASTINUM: Cardiac size is within normal limits. Right-sided chest port catheter in situ with the catheter tip appropriately located at the cavoatrial junction. Mediastinal contours are otherwise stable. BONES: No aggressive appearing osseous lesion seen. IMPRESSION: 1. No acute cardiopulmonary findings. 2. Right-sided chest port catheter in situ with appropriate tip position. No adverse interval changes. /[place]
--- NOTE | 2025-04-02 08:37 | PN ---
This is a 75-year-old male with permanent atrial fibrillation, heart failure with reduced ejection fraction, chronic venous insufficiency, COPD, hypertension, previous tobacco use, and history of colon cancer. He has had 9 falls since August 2024. He was admitted 03/26/2025 after a fall at home resulting in trauma to the left flank. He was found to be significantly volume overloaded and was aggressively diuresed. He is in atrial fibrillation with ventricular rates in the 100s. He is status post biventricular ICD insertion with AV node ablation 04/01/2025. Chest x-ray this morning is negative for pneumothorax with stable lead position. He is currently in atrial fibrillation with biventricular pacing in the 90s. White blood count 8.6, hemoglobin 12.6, hematocrit 37.9, platelets 216, creatinine 1.0, potassium 3.5. He is doing well this morning and offers up no new cardiac complaints. ASSESSMENT: 1. Permanent atrial fibrillation with inadequate rate control. 2. Acute combined systolic and diastolic heart failure exacerbation. 3. Frequent falls. 4. COPD. 5. Chronic venous insufficiency. PLAN: 1. He he is status post biventricular ICD insertion with AV node ablation 04/01/2025 due to dilated cardiomyopathy and permanent atrial fibrillation with inadequate rate control. 2. We will resume Eliquis 04/05/2025 in the a.m.. 3. Continue metoprolol succinate 100 mg once daily and torsemide 20 mg twice daily. 4. He is cleared to be discharged to SNF from an electrophysiology standpoint. 5. We will schedule follow-up with Dr. Mata visit in 7-10 days. Vitals/Labs Vital Signs Date Time Temp Pulse Resp B/P (MAP) Pulse Ox O2 Delivery O2 Flow Rate FiO2 04/02/25 07:53 97.5 91 16 113/65 96 Room Air 04/02/25 07:42 21 04/02/25 04:17 2.0 Laboratory Tests 04/01/25 15:36 04/02/25 03:12 GHASSAN KEITA Apr 02, 2025 08:37
[2025-04-02] MEDS ORDERED: TORS20TA4 PO (08:39)
[2025-04-02] MEDS ORDERED: METO50TA9 PO (08:39)
--- NOTE | 2025-04-02 13:53 | PN ---
NEPHROLOGY PROGRESS NOTE Date/Time Patient Seen: Apr 02, 2025 SUBJECTIVE: This is a 75-year-old male who initially presented with severe cardiomyopathy. The patient is being seen by Cardiology. The patient being seen for possible AICD placement. The patient has had acute on chronic renal failure in the hospital. Creatinine has been elevated. The patient with significant hyponatremia and has been instructed on fluid restr iction. He remains on diuretics and weight has substantially declined since admission, and he is being seen for all of the above. Patient's renal function has remained stable. The patient's urine output is greatly improved with the diuretics. The patient is encouraged with fluid restriction for the hyponatremia. Electrolytes are stable Renal function is improving. REVIEW OF SYSTEMS: GENERAL: Negative for any nausea, vomiting, fevers, chills, or weight loss. NEUROLOGIC: Negative for any blurry vision, blind spots, double vision, facial asymmetry, dysphagia, dysarthria, hemiparesis, hemisensory deficits, vertigo, ataxia. HEENT: Negative for any head trauma, neck trauma, neck stiffness, photophobia, phonophobia, sinusitis, rhinitis. CARDIAC: Negative for any chest pain, dyspnea on exertion, paroxysmal nocturnal dyspnea, peripheral edema. PULMONARY: Negative for any shortness of breath, wheezing, COPD, or TB exposure. GASTROINTESTINAL: Negative for any abdominal pain, nausea, vomiting, bright red blood per rectum, melena. GENITOURINARY: Negative for any dysuria, hematuria, incontinence. INTEGUMENTARY: Negative for any rashes, cuts, insect bites. RHEUMATOLOGIC: Negative for any joint pains, photosensitive rashes, history of vasculitis or kidney problems. HEMATOLOGIC: Negative for any abnormal bruising, frequent infections or bleeding. Vital Signs (last 8hr) Date Time Temp Pulse Resp B/P (MAP) Pulse Ox O2 Delivery O2 Flow Rate FiO2 04/02/25 12:36 97.5 92 16 99/63 98 Room Air 04/02/25 07:53 97.5 91 16 113/65 96 Room Air 04/02/25 07:42 91 18 N/A Room Air 21 PHYSICAL EXAM: GENERAL: Alert and oriented x 3. No acute distress. Well-nourished. EYES: EOMI. Anicteric. HENT: Moist mucous membranes. No scleral icterus. No cervical lymphadenopathy. LUNGS: Clear to auscultation bilaterally. No accessory muscle use. CARDIOVASCULAR: Regular rate and rhythm. No murmur. No JVD. ABDOMEN: Soft, non-tender and non-distended. No palpable masses. EXTREMITIES: No edema. Non-tender. SKIN: No rashes or lesions. Warm. NEUROLOGIC: No focal neurological deficits. CN II-XII grossly intact, but not individually tested. PSYCHIATRIC: Cooperative. Appropriate mood and affect. Current Medications Medications (Trade) Dose Ordered Sig/Dixie Route PRN Reason Start Time Stop Time Status Last Admin Dose Admin Acetaminophen (TYLenol 325MG TAB) 650 mg Q6H PRN PO MILD PAIN (1-3) 03/26/25 16:30 04/25/25 16:29 Acetaminophen (TYLenol 500MG TAB) 1,000 mg Q6H PRN PO MILD PAIN (1-3) 04/01/25 12:00 05/01/25 11:59 Acetaminophen/ Codeine Phosphate (TYLenol-coDEINE TAB) 1 tab Q4H PRN PO MODERATE PAIN (4-6) 04/01/25 12:00 05/01/25 11:59 04/01/25 23:29 1 TAB Acetaminophen/ Codeine Phosphate (TYLenol-coDEINE TAB) 2 tab Q4H PRN PO SEVERE PAIN (7-10) 04/01/25 12:00 05/01/25 11:59 Apixaban (EliquIS) 5 mg BID PO 03/28/25 21:00 03/30/25 09:08 DC 03/29/25 20:20 5 MG Apixaban (EliquIS) 5 mg BID PO 04/05/25 09:00 05/05/25 08:59 Chlordiazepoxide HCl (LIBrium 25 MG CAP) 25 mg Q6H PRN PO ALCOHOL WITHDRAWAL PROTOCOL 03/26/25 18:30 04/02/25 18:29 Enoxaparin Sodium (Lovenox (Pharmacy To Dose)) 1 unit BID SQ 03/26/25 21:00 03/26/25 17:26 DC Furosemide (LASix 40MG VIAL) 40 mg BID IV 03/26/25 21:00 03/29/25 13:13 DC 03/29/25 07:57 40 MG Home Med (Home Medication) BID IH 03/27/25 09:00 04/26/25 08:59 Ipratropium [place] (AtrovENT UD) 0.5 mg Q6H PRN IH SHORTNESS OF BREATH 03/26/25 16:30 04/25/25 16:29 03/26/25 19:39 0.5 MG Magnesium Sulfate 50 ml @ 0 mls/hr PROTOCOL IV 03/26/25 16:30 04/25/25 16:29 03/29/25 07:08 25 MLS/HR Magnesium Sulfate 50 ml @ 0 mls/hr PROTOCOL IV 03/28/25 12:30 03/28/25 12:29 DC Metoprolol Succinate (TopROL XL) 100 mg DAILY PO 04/02/25 09:00 05/02/25 08:59 04/02/25 09:45 100 MG Metoprolol Succinate (TopROL XL) 200 mg DAILY PO 03/27/25 09:00 04/01/25 11:39 DC 03/31/25 09:03 200 MG Neomycin/ Polymyxin/ Bacitracin (Triple Antibiotic Ointment) left lower back and right elbow DAILY11 TP 03/27/25 11:00 04/26/25 10:59 03/31/25 13:15 1 APPL Ondansetron HCl (zoFRAN 4MG INJ) 4 mg Q6H PRN IVP NAUSEA/VOMITING 03/26/25 16:30 04/25/25 16:29 Pantoprazole Sodium (PROTonix 40MG TAB) 40 mg DAILY PO 03/27/25 09:00 04/26/25 08:59 04/02/25 09:46 40 MG Pharmacy Profile Note (Pharmacy Communication) 1 each ONCE MISC 03/27/25 12:30 03/27/25 12:32 DC Pharmacy Profile Note (Pharmacy Communication) 1 each PROTOCOL PRN MISC ETOH Withdrawal Score changes 03/26/25 18:30 04/02/25 18:29 Piperacillin Sod/ Tazobactam Sod (Zosyn 3.375gm+NS 50ml) 3.375 gm Q8H IVPB 03/26/25 16:30 03/27/25 12:31 DC 03/27/25 10:40 3.375 GM Piperacillin Sod/ Tazobactam Sod (Zosyn 3.375gm+NS 50ml) 3.375 gm Q8H IVPB 03/27/25 19:30 04/06/25 19:29 04/02/25 03:48 3.375 GM Potassium Chloride 100 ml @ 100 mls/hr AD PRN IV POTASSIUM PROTOCOL 03/26/25 22:30 04/25/25 22:29 04/01/25 06:19 100 MLS/HR Potassium Chloride (K-Dur 10meq Sr Tab) 10 meq BID PO 03/28/25 21:00 04/27/25 20:59 04/02/25 09:46 10 MEQ Potassium Chloride (K-Dur/Klor-Con 20meq) 20 meq AD PRN PO POTASSIUM PROTOCOL 03/26/25 22:30 04/25/25 22:29 04/02/25 06:22 20 MEQ Potassium Chloride (K-Dur/Klor-Con 20meq) 40 meq Q1H PO 03/28/25 12:30 03/28/25 13:31 DC 03/28/25 16:32 40 MEQ Potassium Chloride (KCl 10% Elixir 20meq/15ml) 20 meq AD PRN PO POTASSIUM PROTOCOL 03/26/25 22:30 04/25/25 22:29 Sodium Chloride (NS 50ml) 50 ml AD IV 03/26/25 16:30 03/26/25 16:21 DC Torsemide (Demadex) 20 mg BID PO 03/29/25 21:00 04/28/25 20:59 04/02/25 09:46 20 MG LABORATORY: [ ] Hematology Labs: Test 04/02/25 03:12 Range/Units White Blood Count 8.6 4.8-10.8 K/uL Red Blood Count 3.88 L 4.50-6.20 MIL/uL Hemoglobin 12.6 L 14.0-18.0 g/dL Hematocrit 37.9 L 42-54 % Mean Corpuscular Volume 97.7 79-99 fL Mean Corpuscular Hemoglobin 32.5 27.0-33.0 pg Mean Corpuscular Hemoglobin Concent 33.2 32.0-36.0 g/dL Red Cell Distribution Width 13.6 11.0-15.5 % Platelet Count 216 130-400 K/uL Mean Platelet Volume 8.6 7.5-10.5 fL Immature Granulocyte % (Auto) 0.7 0-1 % Neutrophils (%) (Auto) 72.1 40.0-77.0 % Lymphocytes (%) (Auto) 10.1 L 21.0-51.0 % Monocytes (%) (Auto) 12.9 3.0-13.0 % Eosinophils (%) (Auto) 3.5 0.0-8.0 % Basophils (%) (Auto) 0.7 0.0-5.0 % Neutrophils # (Auto) 6.2 1.8-7.7 K/uL Lymphocytes # (Auto) 0.9 L 1.0-4.8 K/uL Monocytes # (Auto) 1.1 H 0.1-1.0 K/uL Eosinophils # (Auto) 0.30 0.00-0.70 K/uL Basophils # (Auto) 0.06 0.00-0.20 K/uL Absolute Immature Granulocyte (auto 0.06 0-1 K/uL Nucleated Red Blood Cells 0.0 0.0-0.19 % Chemistry Labs: Test 04/02/25 03:12 04/01/25 15:36 04/01/25 04:32 Range/Units Sodium Level 136 136-145 mmol/L Potassium Level 3.5 3.5-5.1 mmol/L Chloride Level 97 L 101-111 mmol/L Carbon Dioxide Level 35 H 21-32 mmol/L Blood Urea Nitrogen 13 7-18 mg/dL Creatinine 1.0 0.5-1.3 mg/dL Glomerular Filtration Rate Calc 78 >90 mL/min Random Glucose 83 70-105 mg/dL Total Calcium 8.2 L 8.5-10.1 mg/dL Magnesium Level 1.90 1.80-2.40 mg/dL Lactic Acid Level 1.8 0.8-2.5 mmol/L Total Bilirubin 2.1 H 0.2-1.0 mg/dL Aspartate Amino Transf (AST/SGOT) 27 10-37 U/L Alanine Aminotransferase (ALT/SGPT) 22 12-78 U/L Alkaline Phosphatase 54 50-136 U/L C-Reactive Protein, Quantitative 32.00 H 0.5-3.0 mg/L B-Type Natriuretic Peptide 1340 H 0-100 pg/mL Total Protein 5.9 L 6.0-8.3 g/dL Albumin 2.5 L 3.5-5.0 g/dL DIAGNOSTICS / RADIOLOGY: [address] [address] IMAGING REPORT Signed PATIENT: NURIS SENIOR MR#: [id number] : 1950 SEX: M AGE: 75 LOCATION: 2DH ORDER 15 STATUS: ADM IN REPORT#: [id number] SERVICE 12 REASON: COPD ORDERING PHYSICIAN: JUSTUS STONE MD PROCEDURE: CXR1VW - CHEST 1VW EXAM: CR Chest, 2 View. CLINICAL HISTORY: COPD COMPARISON: 03/29/2025 FINDINGS: LUNGS: The lungs show no infiltrate or other acute finding. PLEURAL SPACES: No evidence of pleural effusion or pneumothorax. MEDIASTINUM: Cardiac size is within normal limits. Right-sided chest port catheter in situ with the catheter tip appropriately located at the cavoatrial junction. Mediastinal contours are otherwise stable. BONES: No aggressive appearing osseous lesion seen. IMPRESSION: 1. No acute cardiopulmonary findings. 2. Right-sided chest port catheter in situ with appropriate tip position. No adverse interval changes. /[place] DICTATED BY: ISATU QUEEN Jr., MD DATE: 04/02/25618 ELECTRONICALLY SIGNED BY: ISATU QUEEN Jr., MD DATE: 04/02/25618 PATIENT: NRUIS SENIOR MR#: [id number] : 1950 SEX: M AGE: 75 LOCATION: ED[facility] ORDER 09 STATUS: ADM IN REPORT#: [id number] SERVICE 160 REASON: possible cholecystitis, fall few days ago with lower back pain ORDERING PHYSICIAN: JEMAL PRIDE MD PROCEDURE: ABD PEL WO - CT ABDOMEN/PELVIS W/O CONTRAST ADDENDUM REPORT ADDENDUM: The left flank hematoma measures 20 x 4 cm. Appears subcutaneous. /[place] EXAM: CT Abdomen and Pelvis Without IV contrast CLINICAL HISTORY: possible cholecystitis, fall few days ago with lower back pain TECHNIQUE: Axial computed tomography images of the abdomen and pelvis without intravenous contrast. CONTRAST: No IV contrast. COMPARISON: None provided. FINDINGS: LUNG BASES: Small pleural LIVER: Unremarkable. GALLBLADDER AND BILE DUCTS: Some gallstones, thickened gallbladder wall. Cholecystitis cannot be excluded right upper quadrant ultrasound recommended PANCREAS: Unremarkable. SPLEEN: Unremarkable. ADRENAL GLANDS: Unremarkable. KIDNEYS, URETERS, AND BLADDER: The kidneys appear within normal limits. There is no hydronephrosis or hydroureter. No urinary calculi are seen. STOMACH AND BOWEL: Unremarkable appearance of the stomach and bowel. No evidence of bowel obstruction. No evidence suggesting enteritis or colitis. APPENDIX: No evidence of acute appendicitis on CT examination. PERITONEUM: No free fluid. No free air. LYMPH NODES: No lymphadenopathy is evident. REPRODUCTIVE: Unremarkable as visualized. VASCULATURE: No evidence of abdominal aortic aneurysm. BONES: No aggressive appearing osseous lesion. No acute osseous pathology evident. MISCELLANEOUS: Left flank subcutaneous hematoma/edema formation felt to be posttraumatic IMPRESSION: 1. Some gallstones, thickened gallbladder wall. Cholecystitis cannot be excluded right upper quadrant ultrasound recommended 2. Small pleural 3. Left flank subcutaneous hematoma/edema formation felt to be posttraumatic /[place] DICTATED BY: LELIA CURIEL MD DATE: 03/26/251921 ELECTRONICALLY SIGNED BY: DATE: EXAM: CT Abdomen and Pelvis Without IV contrast CLINICAL HISTORY: possible cholecystitis, fall few days ago with lower back pain TECHNIQUE: Axial computed tomography images of the abdomen and pelvis without intravenous contrast. CONTRAST: No IV contrast. COMPARISON: None provided. FINDINGS: LUNG BASES: Small pleural LIVER: Unremarkable. GALLBLADDER AND BILE DUCTS: Some gallstones, thickened gallbladder wall. Cholecystitis cannot be excluded right upper quadrant ultrasound recommended PANCREAS: Unremarkable. SPLEEN: Unremarkable. ADRENAL GLANDS: Unremarkable. KIDNEYS, URETERS, AND BLADDER: The kidneys appear within normal limits. There is no hydronephrosis or hydroureter. No urinary calculi are seen. STOMACH AND BOWEL: Unremarkable appearance of the stomach and bowel. No evidence of bowel obstruction. No evidence suggesting enteritis or colitis. APPENDIX: No evidence of acute appendicitis on CT examination. PERITONEUM: No free fluid. No free air. LYMPH NODES: No lymphadenopathy is evident. REPRODUCTIVE: Unremarkable as visualized. VASCULATURE: No evidence of abdominal aortic aneurysm. BONES: No aggressive appearing osseous lesion. No acute osseous pathology evident. MISCELLANEOUS: Left flank subcutaneous hematoma/edema formation felt to be posttraumatic IMPRESSION: 1. Some gallstones, thickened gallbladder wall. Cholecystitis cannot be excluded right upper quadrant ultrasound recommended 2. Small pleural 3. Left flank subcutaneous hematoma/edema formation felt to be posttraumatic /[place] DICTATED BY: LELIA CURIEL MD DATE: 03/26/251758 ELECTRONICALLY SIGNED BY: LELIA CURIEL MD DATE: 03/26/251758 PATIENT: NURIS SENIOR MR#: [id number] : 1950 SEX: M AGE: 75 LOCATION: ED[facility] ORDER 1301 STATUS: [facility] REPORT#: [id number] SERVICE 1259 REASON: RIGHT UPPER QUADRANT PAIN ORDERING PHYSICIAN: FRANCIA MENDOZA BLEACH MAKER PROCEDURE: ABDRUQLTD - US ABDOMINAL RUQ\LTD EXAM: US Abdomen, Right Upper Quadrant. CLINICAL HISTORY: RIGHT UPPER QUADRANT PAIN TECHNIQUE: Right upper quadrant sonography performed with image documentation. COMPARISON: None provided. FINDINGS: LIVER: The enlarged liver measures 16.4 cm with increased echogenicity suggestive of hepatic steatosis. No mass. GALLBLADDER: The gallbladder is distended with stones and wall thickening (6 mm). COMMON BILE DUCT: Within normal limits in size (6 mm). PANCREAS: The visualized pancreas appears within normal limits. The distal pancreas is obscured by bowel gas. RIGHT KIDNEY: Measures 9.1 x 4.8 x 3.7 cm. Normal renal contours. No renal mass or calculus. No hydronephrosis. IMPRESSION: 1. Cholelithiasis with gallbladder wall thickening, suggesting acute cholecystitis. 2. Hepatomegaly with increased echogenicity, consistent with hepatic steatosis. /[place] DICTATED BY: SERGIO FONSECA MD DATE: 03/26/251701 ELECTRONICALLY SIGNED BY: SERGIO FONSECA MD DATE: 03/26/25 1707 ASSESSMENT: Acute renal failure. Electrolyte abnormalities. Hypertension. Acute decompensated heart failure exacerbation, POA 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 Status post fall, POA History of chronic atrial fibrillation maintained on chronic anticoagulation with Eliquis, POA Moderate aortic valvular stenosis, POA Severe mitral regurgitation, POA Severe tricuspid valve regurgitation, POA Status post fall with lower back pain and left flank pain, POA Large subcutaneous left flank hematoma measuring 20 cm x 4 cm, POA History of hypertension, POA Leukocytosis, POA PLAN: Labs, diagnostic, radiologic exams reviewed and interpreted by myself and supervising physician. We have reviewed external records in detail Require close monitoring of renal function and electrolytes Order CBC, CMP, uric acid and electrolytes in am BiPAP as necessary, for respiratory distress Monitor blood pressure adjust medication doses as needed Avoid hypotensive episodes May use Dilaudid 0.5 mg IV every 6 hours as needed for severe pain Monitor blood sugars Strict intake, output, and daily weight should be monitored Please renally adjust medications Avoid nephrotoxic and nonsteroidal drugs Avoid contrast if possible Will continue to monitor renal function, anemia, electrolytes Treatment plan discussed with patient Questions were answered We have discussed with the other team physicians in detail about the care plan We will continue to monitor the patient closely ATTESTATION BY PHYSICIAN I have seen and examined the patient. I reviewed the documentation, medical decision making, and treatment plan as noted by the mid-level provider above. I agree with the findings and plan of care. JENNIFER HAWK MD, [facility] Apr 02, 2025 13:53
--- NOTE | 2025-04-02 15:28 | NUR ---
[facility] Follow-up: Patient re-assessed by wound healing team, Wound improving. Assessment and recommendations provided to primary nurse Education provided.
--- NOTE | 2025-04-02 16:09 | PN ---
[facility] PROGRESS NOTE Date of Service: Apr 02, 2025 Time of Service: 16:00 HISTORY OF PRESENT ILLNESS: This is a 75-year-old male with history of advanced cardiomyopathy with LVEF of 30-35%, history of moderate valvular aortic stenosis, history of severe mitral valve regurgitation, COPD, history of severe tricuspid valve regurgitation, hypertension, atrial fibrillation maintained on chronic anticoagulation with Eliquis who presented to the ER for further evaluation of shortness of breadth, significant lower extremity edema as well as intermittent right upper quadrant abdominal pain. Patient is hard of hearing and patient's was present at bedside to assist with further history. reports that patient has been having progressive lower extremity edema ongoing for several days. Patient has been having dyspnea on exertion as well. Patient is followed by Dr. Lackey with Cardiology as outpatient. He is also followed by Dr. Mata as outpatient and he has been upcoming appointment to evaluate for ICD/SCIENTIFIC INFORMATICS PROJECT LEADER D therapy evaluation. Patient has a history of advanced cardiomyopathy with valvulopathy. He is currently maintained on 10 mg of torsemide daily. He is on high-dose metoprolol succinate for management of atrial fibrillation as well. He gets short of breath with minimal ambulation, he has significant lower extremity edema which has been worsening as well. Patient has been following up with his PCP for issues with gallbladder related pain. He was previously told that he has cholelithiasis. He gets intermittent right upper quadrant pain. Oral intake has been poor as well. Patient fell about two days ago, and he has been having some back pain involving the left flank and lower back. He denies syncope or hitting his head with the fall. He recently had a CT head without contrast in December after he fell and hit his head. states that CT head without contrast was negative. Since the fall, patient developed a small wound in the back for which patient's has been applying band aid to it. Patient reports having history of atrial fibrillation and is maintained on chronic anticoagulation with Eliquis. Last dose of Eliquis was earlier this morning. on Presentation to the hospital, patient was noted to be afebrile with T-max of 97.3 F, heart rate of 83 with EKG showed findings of atrial fibrillation with PVCs and prolonged QTC. [place] [address], hemoglobin of 15.4, platelet count of 174505. BMP showed sodium of 127, potassium 5.3, BUN of 21, creatinine of 1.0, BNP of 1190. Chest x-ray showed mild bilateral infiltrates, abdominal ultrasound showed findings suggestive of acute cholecystitis. SUBJECTIVE: 03/27/2025: Patient was seen and evaluated bedside, case discussed with RN and no acute overnight events. Patient says he is feeling better, denies chest pain, shortness of breath, palpitations, nausea and vomiting. Morning lab showed sodium trending up to 132, potassium trending down to 3.8, BNP trending up to 1310. Patient is currently on clear liquids, waiting for cardiac clearance before surgery for acute cholecystitis. Continue IV furosemide 40 mg b.i.d., 100 mg daily p.o., Zosyn Q 8. General surgery, Cardiology, Nephrology on board and we will follow up with the recommendations. 03/28/2025: Patient was seen and evaluated bedside in room 420. Case discussed with RN, no acute overnight events. Patient vitals are hemodynamically stable except for heart rate in late 90s and early 100s overnight. Patient is responding well to IV Lasix I and O balance this morning was -6590. Morning lab showed potassium 2.9, started replacing per protocol. HIDA scan was done this morning which was negative for acute cholecystitis. Cardiology recommended resuming Eliquis5 mg b.i.d. for AFib today, transition to torsemide 20 mg daily tomorrow. 03/29/2025: Patient was seen in room 420. He is vitally stable, 106/69, heart rate 83. He has been started on torsemide today and as per Cardiology, he will undergo evaluation for discharge to SNF facility. He continues on Eliquis 5 mg b.i.d. His BNP today is 879. we will continue to follow recommendations from Cardiology 03/30/25: Patient was seen in room 420. Patient reports no overnight events. Patient denies any chest pain, abdominal pain, shortness of breath, palpit ations, nausea and vomiting. HIDA scan was done this morning which was negative for acute cholecystitis. Cardiology are planning to schedule to place AICD with AV node ablation by Sunday and his eliquis was held from today. Currently on torsemide 20mg 03/31/25: Patient was seen in room 420. Patient reports no overnight events. Patient is scheduled for procedure to place AICD with AV node ablation tomorrow by Dr. Mata. Patient denies any chest pain, abdominal pain, shortness of breath, palpitations, nausea and vomiting. He is vitally stable, 118/78, Pulse rate of 92. he is continuing on torsemide 20mg and metoprolol 200mg. 04/01/25: Patient was undergoing AICD placement with AV node ablation today by Rudi Mata. 04/02/25: Patient was seen and evaluated in room 223. Patient is status post biventricular ICD insertion with AV node ablation (day1). Patient reports of pain on the incision site, apart from that patient denies any chest pain, shortness of breath, palpitations, fever, chills, nausea and vomiting. Patient is cleared as per ir[facility] moss operator standpoint of view to SNF. REVIEW OF SYSTEMS CONSTITUTIONAL: Denies fevers or chills, reports having malaise and poor oral intake NEUROLOGICAL: Denies headache, amaurosis fugax, motor weakness, sensory deficit, vertigo/spinning sensation, gait abnormalities, or tremors. ENT: No hearing loss, otalgia, otorrhea, rhinitis, rhinorrhea, hoarseness, or sore throat. CARDIOVASCULAR: Reports having significant lower extremity edema, history of heart failure, denies active chest pain PULMONARY: Reports having dyspnea on exertion SLEEP: Denies morning headaches, daytime somnolence or napping. Denies difficulty falling asleep, staying asleep, waking from sleep. Denies knowledge of snoring. GASTROINTESTINAL: Reports having poor oral intake, denies nausea or vomiting GENITOURINARY: Denies frequency, urgency, nocturia, hematuria or incontinence (Storage/Irritative symptoms.) Low urinary stream, straining to void, urinary intermittency or hesitancy, splitting of the voiding stream, terminal dribbling. ENDOCRINOLOGIC: Denies polyuria, polydipsia, polyphagia or heat/cold intolerances. HEMATOLOGIC: Denies thrombophilia/previous clots, or coagulopathy/bleeding disorders. ONCOLOGIC: Denies personal history of malignancy. DERMATOLOGIC: Denies rashes or pruritus. PSYCHIATRIC: Denies any suicidal or homicidal ideation. Denies hallucinations. PHYSICAL EXAM GENERAL APPEARANCE: The patient is awake, alert, and oriented, in no acute cardiopulmonary distress, appears debilitated NEUROLOGICAL: Cranial nerves II-XII grossly intact. Motor is 5/5 in bilateral upper and lower extremities proximal to distal. No sensory deficits. HEENT: Face is symmetric. Pupils are equal and reactive. Extraocular movements are intact. NECK: Supple. No JVD. No thyromegaly. No submental, submandibular, pre- /postauricular, occipital or supraclavicular lymphadenopathy. CHEST: Tenderness at the incision site. Normal chest expansion. No Telemetry. LUNGS: minimal crackles noted of the bilateral lung bases CARDIOVASCULAR: Regular. S1 and S2 normal. No appreciable rubs, murmurs or gallops. ABDOMEN: Soft, nontender, and nondistended. There is no rebound, voluntary guarding, or rigidity. : Deferred. No Hough. EXTREMITIES: 3+ pitting edema noted of the bilateral lower extremities SKIN: skin tear noted of the lower back Vital Signs (last 8hr) Date Time Temp Pulse Resp B/P (MAP) Pulse Ox O2 Delivery O2 Flow Rate FiO2 04/02/25 12:36 97.5 92 16 99/63 98 Room Air LABS: Laboratory: Test 04/02/25 03:12 04/01/25 15:36 04/01/25 04:32 Range/Units White Blood Count 8.6 4.8-10.8 K/uL Red Blood Count 3.88 L 4.50-6.20 MIL/uL Hemoglobin 12.6 L 14.0-18.0 g/dL Hematocrit 37.9 L 42-54 % Mean Corpuscular Volume 97.7 79-99 fL Mean Corpuscular Hemoglobin 32.5 27.0-33.0 pg Mean Corpuscular Hemoglobin Concent 33.2 32.0-36.0 g/dL Red Cell Distribution Width 13.6 11.0-15.5 % Platelet Count 216 130-400 K/uL Mean Platelet Volume 8.6 7.5-10.5 fL Immature Granulocyte % (Auto) 0.7 0-1 % Neutrophils (%) (Auto) 72.1 40.0-77.0 % Lymphocytes (%) (Auto) 10.1 L 21.0-51.0 % Monocytes (%) (Auto) 12.9 3.0-13.0 % Eosinophils (%) (Auto) 3.5 0.0-8.0 % Basophils (%) (Auto) 0.7 0.0-5.0 % Neutrophils # (Auto) 6.2 1.8-7.7 K/uL Lymphocytes # (Auto) 0.9 L 1.0-4.8 K/uL Monocytes # (Auto) 1.1 H 0.1-1.0 K/uL Eosinophils # (Auto) 0.30 0.00-0.70 K/uL Basophils # (Auto) 0.06 0.00-0.20 K/uL Absolute Immature Granulocyte (auto 0.06 0-1 K/uL Nucleated Red Blood Cells 0.0 0.0-0.19 % Sodium Level 136 136-145 mmol/L Potassium Level 3.5 3.5-5.1 mmol/L Chloride Level 97 L 101-111 mmol/L Carbon Dioxide Level 35 H 21-32 mmol/L Blood Urea Nitrogen 13 7-18 mg/dL Creatinine 1.0 0.5-1.3 mg/dL Glomerular Filtration Rate Calc 78 >90 mL/min Random Glucose 83 70-105 mg/dL Total Calcium 8.2 L 8.5-10.1 mg/dL Magnesium Level 1.90 1.80-2.40 mg/dL Lactic Acid Level 1.8 0.8-2.5 mmol/L Total Bilirubin 2.1 H 0.2-1.0 mg/dL Aspartate Amino Transf (AST/SGOT) 27 10-37 U/L Alanine Aminotransferase (ALT/SGPT) 22 12-78 U/L Alkaline Phosphatase 54 50-136 U/L C-Reactive Protein, Quantitative 32.00 H 0.5-3.0 mg/L B-Type Natriuretic Peptide 1340 H 0-100 pg/mL Total Protein 5.9 L 6.0-8.3 g/dL Albumin 2.5 L 3.5-5.0 g/dL Current Medications Medications (Trade) Dose Ordered Sig/Dixie Route PRN Reason Start Time Stop Time Status Last Admin Dose Admin Acetaminophen (TYLenol 325MG TAB) 650 mg Q6H PRN PO MILD PAIN (1-3) 03/26/25 16:30 04/25/25 16:29 Acetaminophen (TYLenol 500MG TAB) 1,000 mg Q6H PRN PO MILD PAIN (1-3) 04/01/25 12:00 05/01/25 11:59 Acetaminophen/ Codeine Phosphate (TYLenol-coDEINE TAB) 1 tab Q4H PRN PO MODERATE PAIN (4-6) 04/01/25 12:00 05/01/25 11:59 04/01/25 23:29 1 TAB Acetaminophen/ Codeine Phosphate (TYLenol-coDEINE TAB) 2 tab Q4H PRN PO SEVERE PAIN (7-10) 04/01/25 12:00 05/01/25 11:59 Apixaban (EliquIS) 5 mg BID PO 03/28/25 21:00 03/30/25 09:08 DC 03/29/25 20:20 5 MG Apixaban (EliquIS) 5 mg BID PO 04/05/25 09:00 05/05/25 08:59 Chlordiazepoxide HCl (LIBrium 25 MG CAP) 25 mg Q6H PRN PO ALCOHOL WITHDRAWAL PROTOCOL 03/26/25 18:30 04/02/25 18:29 Enoxaparin Sodium (Lovenox (Pharmacy To Dose)) 1 unit BID SQ 03/26/25 21:00 03/26/25 17:26 DC Furosemide (LASix 40MG VIAL) 40 mg BID IV 03/26/25 21:00 03/29/25 13:13 DC 03/29/25 07:57 40 MG Home Med (Home Medication) BID IH 03/27/25 09:00 04/26/25 08:59 Ipratropium [place] (AtrovENT UD) 0.5 mg Q6H PRN IH SHORTNESS OF BREATH 03/26/25 16:30 04/25/25 16:29 03/26/25 19:39 0.5 MG Magnesium Sulfate 50 ml @ 0 mls/hr PROTOCOL IV 03/26/25 16:30 04/25/25 16:29 03/29/25 07:08 25 MLS/HR Magnesium Sulfate 50 ml @ 0 mls/hr PROTOCOL IV 03/28/25 12:30 03/28/25 12:29 DC Metoprolol Succinate (TopROL XL) 100 mg DAILY PO 04/02/25 09:00 05/02/25 08:59 04/02/25 09:45 100 MG Metoprolol Succinate (TopROL XL) 200 mg DAILY PO 03/27/25 09:00 04/01/25 11:39 DC 03/31/25 09:03 200 MG Neomycin/ Polymyxin/ Bacitracin (Triple Antibiotic Ointment) left lower back and right elbow DAILY11 TP 03/27/25 11:00 04/26/25 10:59 04/02/25 15:48 1 APPL Ondansetron HCl (zoFRAN 4MG INJ) 4 mg Q6H PRN IVP NAUSEA/VOMITING 03/26/25 16:30 04/25/25 16:29 Pantoprazole Sodium (PROTonix 40MG TAB) 40 mg DAILY PO 03/27/25 09:00 04/26/25 08:59 04/02/25 09:46 40 MG Pharmacy Profile Note (Pharmacy Communication) 1 each ONCE MISC 03/27/25 12:30 03/27/25 12:32 DC Pharmacy Profile Note (Pharmacy Communication) 1 each PROTOCOL PRN MISC ETOH Withdrawal Score changes 03/26/25 18:30 04/02/25 18:29 Piperacillin Sod/ Tazobactam Sod (Zosyn 3.375gm+NS 50ml) 3.375 gm Q8H IVPB 03/26/25 16:30 03/27/25 12:31 DC 03/27/25 10:40 3.375 GM Piperacillin Sod/ Tazobactam Sod (Zosyn 3.375gm+NS 50ml) 3.375 gm Q8H IVPB 03/27/25 19:30 04/06/25 19:29 04/02/25 15:48 3.375 GM Potassium Chloride 100 ml @ 100 mls/hr AD PRN IV POTASSIUM PROTOCOL 03/26/25 22:30 04/25/25 22:29 04/01/25 06:19 100 MLS/HR Potassium Chloride (K-Dur 10meq Sr Tab) 10 meq BID PO 03/28/25 21:00 04/27/25 20:59 04/02/25 09:46 10 MEQ Potassium Chloride (K-Dur/Klor-Con 20meq) 20 meq AD PRN PO POTASSIUM PROTOCOL 03/26/25 22:30 04/25/25 22:29 04/02/25 06:22 20 MEQ Potassium Chloride (K-Dur/Klor-Con 20meq) 40 meq Q1H PO 03/28/25 12:30 03/28/25 13:31 DC 03/28/25 16:32 40 MEQ Potassium Chloride (KCl 10% Elixir 20meq/15ml) 20 meq AD PRN PO POTASSIUM PROTOCOL 03/26/25 22:30 04/25/25 22:29 Sodium Chloride (NS 50ml) 50 ml AD IV 03/26/25 16:30 03/26/25 16:21 DC Torsemide (Demadex) 20 mg BID PO 03/29/25 21:00 04/28/25 20:59 04/02/25 09:46 20 MG DIAGNOSTICS / RADIOLOGY: [ ] ASSESSMENT: Acute decompensated heart failure exacerbation, POA 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 Status post fall, POA History of chronic atrial fibrillation maintained on chronic anticoagulation with Eliquis, POA Moderate aortic valvular stenosis, POA Severe mitral regurgitation, POA Severe tricuspid valve regurgitation, POA Status post fall with lower back pain and left flank pain, POA Large subcutaneous left flank hematoma measuring 20 cm x 4 cm, POA History of hypertension, POA Hypervolemic hyponatremia, POA Hyperkalemia, POA Leukocytosis, POA PLAN: Acute decompensated systolic heart failure exacerbation, POA * Patient is known case of systolic heart failure taking torsemide 10 mg * On arrival patient's BNP 1190, * 2D echo from 02/24/2025 shows LVEF 30-35, potassium is severely dilated, right ventricular severely dilated * Patient was started on IV furosemide 40 mg b.i.d, which has been discontinued and patient restarted on torsemide 20 mg BID p.o. (03/29) * Metoprolol 200mg was discontinued and patient was started on metoprolol 100mg from 04/02/25. * Input and output balance was -2660 on 04/02/2025 * Cardiology on board, we will follow up with the recommendations. Cholelithiasis, POA * Patient had right upper quadrant pain on arrival * Abdominal ultrasound showed cholelithiasis with gallbladder wall thickening, suggesting acute cholecystitis * CT abdomen showed small gallstones, thickened gallbladder wall. * Continue Zosyn IV Q8 * Patient is currently on clear liquid, surgery on board and we will follow up with the recommendation * HIDA scan performed on 03/28/2025 showed negative for acute cholecystitis. Ruled out cholecystitis. Hypervolemic hyponatremia, POA * On presentation sodium was 127 * patient placed on 1.5L fluid restriction. * Start torsemide 20 mg b.i.d. * we will trend sodium levels daily History of chronic atrial fibrillation maintained on chronic anticoagulation with Eliquis, POA * patient is known case of Afib on chronic eliquis 5mg daily at home * imaging showed Large subcutaneous left flank hematoma measuring 20 cm x 4 cm * Continuing on Metoprolol 200mg. * Eliquis on hold secondary to recent trauma and do also want to hold any Lovenox but would like to reinitiate Eliquis in the next 24-36 hours of H&H is hold. * Eliquis 5 mg b.i.d. was held from 03/30/25 for scheduled procedure of AICD placement and AV node ablation by Dr. Mata. * Patient underwent biventricular AICD placement and AV node ablation by Dr. Mata today (04/01/25). * Eliquis to be resumed from 04/05/25. * Patient is cleared as per [employer] [employer] operator standpoint of view to be discharged to SNF. 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 I reviewed the documentation, medical decision making, and treatment plan as noted by the resident physician above. I agree with the findings and plan of care. MANJULA GARCIA MD, SHAJI MD Apr 02, 2025 16:09
--- NOTE | 2025-04-02 16:55 | PN ---
PROGRESS NOTE Date of Service: Apr 02, 2025 Time of Service: 16:53 SUBJECTIVE: Patient evaluated at bedside in room 223 for wound care follow up. Patient's at bedside during evaluation. Patient denies any complaints at this time. Patient's reports possible discharge to home tomorrow. REVIEW OF SYSTEMS CONSTITUTIONAL: Denies fever, chills, or fatigue. HEAD/FACE: No signs of trauma. EENT: Denies eye pain, blurred vision, double vision, or light sensitivity. RESPIRATORY: Positive for shortness of breath with exertion CARDIOVASCULAR: Denies chest pain, palpitation, syncope, lower extremity edema GASTROINTESTINAL/ABDOMINAL: Denies abdominal pain, constipation, diarrhea, nausea or vomiting GENITOURINARY: Denies dysuria or hematuria. MUSCULOSKELETAL: Denies joint pain, tenderness, or trauma. INTEGUMENTARY: Denies rash or itchiness NEUROLOGICAL/PSYCH: Denies anxiety, depression, heat or cold intolerance. PHYSICAL EXAM EYES: Anicteric. Pupils equal and reactive. HENT: No oral thrush seen, moist Oral mucosa NECK: Supple, no JVD or thyromegaly. LUNGS: Good air entry. No rales, no rhonchi. CARDIOVASCULAR: S1, S2 regular. No murmur heard, +2-3 edema to bilateral lower legs . ABDOMEN: Soft, non tender, bowel sounds present, no organomegaly CENTRAL NERVOUS SYSTEM: Awake, alert, oriented x 3. No focal deficits. SKIN: Left lower back skin tear noted with granulation, decrease in wound bed size, fluid filled blister noted to right lateral lower leg LYMPHATICS: No peripheral lymphadenopathy MUSCULOSKELETAL: No joint swelling, erythema or tenderness. EXTREMITIES: No cyanosis or clubbing BACK: No deformity GENITOURINARY: No dysuria or hematuria Vital Signs (last 8hr) Date Time Temp Pulse Resp B/P (MAP) Pulse Ox O2 Delivery O2 Flow Rate FiO2 04/02/25 16:06 97.3 91 16 105/62 97 Room Air 04/02/25 12:36 97.5 92 16 99/63 98 Room Air LABS: Laboratory: Test 04/02/25 03:12 04/01/25 15:36 04/01/25 04:32 Range/Units White Blood Count 8.6 4.8-10.8 K/uL Red Blood Count 3.88 L 4.50-6.20 MIL/uL Hemoglobin 12.6 L 14.0-18.0 g/dL Hematocrit 37.9 L 42-54 % Mean Corpuscular Volume 97.7 79-99 fL Mean Corpuscular Hemoglobin 32.5 27.0-33.0 pg Mean Corpuscular Hemoglobin Concent 33.2 32.0-36.0 g/dL Red Cell Distribution Width 13.6 11.0-15.5 % Platelet Count 216 130-400 K/uL Mean Platelet Volume 8.6 7.5-10.5 fL Immature Granulocyte % (Auto) 0.7 0-1 % Neutrophils (%) (Auto) 72.1 40.0-77.0 % Lymphocytes (%) (Auto) 10.1 L 21.0-51.0 % Monocytes (%) (Auto) 12.9 3.0-13.0 % Eosinophils (%) (Auto) 3.5 0.0-8.0 % Basophils (%) (Auto) 0.7 0.0-5.0 % Neutrophils # (Auto) 6.2 1.8-7.7 K/uL Lymphocytes # (Auto) 0.9 L 1.0-4.8 K/uL Monocytes # (Auto) 1.1 H 0.1-1.0 K/uL Eosinophils # (Auto) 0.30 0.00-0.70 K/uL Basophils # (Auto) 0.06 0.00-0.20 K/uL Absolute Immature Granulocyte (auto 0.06 0-1 K/uL Nucleated Red Blood Cells 0.0 0.0-0.19 % Sodium Level 136 136-145 mmol/L Potassium Level 3.5 3.5-5.1 mmol/L Chloride Level 97 L 101-111 mmol/L Carbon Dioxide Level 35 H 21-32 mmol/L Blood Urea Nitrogen 13 7-18 mg/dL Creatinine 1.0 0.5-1.3 mg/dL Glomerular Filtration Rate Calc 78 >90 mL/min Random Glucose 83 70-105 mg/dL Total Calcium 8.2 L 8.5-10.1 mg/dL Magnesium Level 1.90 1.80-2.40 mg/dL Lactic Acid Level 1.8 0.8-2.5 mmol/L Total Bilirubin 2.1 H 0.2-1.0 mg/dL Aspartate Amino Transf (AST/SGOT) 27 10-37 U/L Alanine Aminotransferase (ALT/SGPT) 22 12-78 U/L Alkaline Phosphatase 54 50-136 U/L C-Reactive Protein, Quantitative 32.00 H 0.5-3.0 mg/L B-Type Natriuretic Peptide 1340 H 0-100 pg/mL Total Protein 5.9 L 6.0-8.3 g/dL Albumin 2.5 L 3.5-5.0 g/dL DIAGNOSTICS / RADIOLOGY: [ ] PROBLEM LIST : Medical Problems: Unspecified open wound of left lower back Unspecified open wound of right lower leg PLAN: Wound care to Left lower back -Cleanse with normal saline, pat dry, apply Triple antibiotic ointment, cover with adaptic/Vaseline gauze, gauze, and secure with tape change daily and prn Wound care to right lower leg fluid filled blister- Apply betadine daily, leave open to air Keep wounds clean and dry Offloading/reposition q 2 hours Continue IV antibiotics per ID Comorbidities per primary care team Further Management per hospital course. Thank You for the consult and allowing us to participate in the care of this patient. BAYLEE GLORIA SENIOR CONTROL SYSTEMS ENGINEER Apr 02, 2025 16:55
[2025-04-02 22:29] LABS: APPEARANCE,URINE CLEAR (CLEAR); GLUCOSE, URINE (UA) NEGATIVE (NEGATIVE); LEUKOCYTE ESTERASE ,URINE 25 Leu/uL (NEGATIVE); NITRATE,URINE NEGATIVE (NEGATIVE); OCCULT BLOOD,URINE NEGATIVE (NEGATIVE)
[2025-04-02 22:32] LABS: ADD UA MICROSCOPIC YES
[2025-04-03] VITALS (9 sets, daily range): BP systolic 113–118; BP diastolic 67–71; PULSE 85–94; RESP 18; TEMP 97.6–98.2; O2SAT 96–99
[2025-04-03 04:58] LABS: NUCLEATED RED BLOOD CELLS 0.0 % (0.0-0.19); PLATELET COUNT (AUTO) 196.0 K/uL (130-400); RED BLOOD CELL COUNT(AUTO) 3.86 MIL/uL (4.50-6.20); RED CELL DISTRIBUTION WIDTH 13.5 % (11.0-15.5); WHITE BLOOD COUNT (AUTO) 8.1 K/uL (4.8-10.8)
[2025-04-03 05:16] LABS: ASPARTATE AMINOTRANSFERASE 23.0 U/L (10-37); CREATININE 0.8 mg/dL (0.5-1.3); GLOMERULAR FILTR. RATE CALC 91.0 mL/min (>90); GLUCOSE,RANDOM 89.0 mg/dL (70-105); SODIUM SERUM 134.0 mmol/L (136-145); TOTAL PROTEIN, SERUM 5.6 g/dL (6.0-8.3); UREA NITROGEN, BLOOD 16.0 mg/dL (7-18)
[2025-04-03] MEDS: PoTASSium chl 10% ELIXIR 20MEQ 20 MEQ/15 ML UDCUP PO PRN (06:16)
--- NOTE | 2025-04-03 07:56 | HMCIMG ---
EXAM: CR Chest,1 View. CLINICAL HISTORY: COPD COMPARISON: Chest x-ray dated 04/02/2025. FINDINGS: Interval placement of biventricular cardiac pacemaker with its leads overlying the left ventricle and right ventricle. Implantable chest port in-situ with its tip overlying the right cavoatrial junction. LUNGS: Few atelectatic opacities in the right lower zone. PLEURAL SPACES: No pleural effusion or pneumothorax. MEDIASTINUM: Cardiac size and mediastinal contours appears enlarged. BONES: No acute osseous abnormality. IMPRESSION: Interval placement of biventricular cardiac pacemaker. Implantable chest port in-situ with appropriate tip position. Cardiomegaly. /[place]
--- NOTE | 2025-04-03 12:24 | PN ---
NEPHROLOGY PROGRESS NOTE Date/Time Patient Seen: Apr 03, 2025 SUBJECTIVE: This is a 75-year-old male who initially presented with severe cardiomyopathy. The patient is being seen by Cardiology. The patient being seen for possible AICD placement. The patient has had acute on chronic renal failure in the hospital. Creatinine has been elevated. The patient with significant hyponatremia and has been instructed on fluid restr iction. He remains on diuretics and weight has substantially declined since admission, and he is being seen for all of the above. Patient's renal function has remained stable. The patient's urine output is greatly improved with the diuretics. The patient is encouraged with fluid restriction for the hyponatremia. Renal function is stable Electrolytes show hypokalemia S/P biventricular ICD insertion with AV node ablation 04/01/2025 due to dilated cardiomyopathy and permanent atrial fibrillation with inadequate rate control. REVIEW OF SYSTEMS: GENERAL: Negative for any nausea, vomiting, fevers, chills, or weight loss. NEUROLOGIC: Negative for any blurry vision, blind spots, double vision, facial asymmetry, dysphagia, dysarthria, hemiparesis, hemisensory deficits, vertigo, ataxia. HEENT: Negative for any head trauma, neck trauma, neck stiffness, photophobia, phonophobia, sinusitis, rhinitis. CARDIAC: Negative for any chest pain, dyspnea on exertion, paroxysmal nocturnal dyspnea, peripheral edema. PULMONARY: Negative for any shortness of breath, wheezing, COPD, or TB exposure. GASTROINTESTINAL: Negative for any abdominal pain, nausea, vomiting, bright red blood per rectum, melena. GENITOURINARY: Negative for any dysuria, hematuria, incontinence. INTEGUMENTARY: Negative for any rashes, cuts, insect bites. RHEUMATOLOGIC: Negative for any joint pains, photosensitive rashes, history of vasculitis or kidney problems. HEMATOLOGIC: Negative for any abnormal bruising, frequent infections or bleeding. Vital Signs (last 8hr) Date Time Temp Pulse Resp B/P (MAP) Pulse Ox O2 Delivery O2 Flow Rate FiO2 04/02/25 12:36 97.5 92 16 99/63 98 Room Air 04/02/25 07:53 97.5 91 16 113/65 96 Room Air 04/02/25 07:42 91 18 N/A Room Air 21 PHYSICAL EXAM: GENERAL: Alert and oriented x 3. No acute distress. Well-nourished. EYES: EOMI. Anicteric. HENT: Moist mucous membranes. No scleral icterus. No cervical lymphadenopathy. LUNGS: Clear to auscultation bilaterally. No accessory muscle use. CARDIOVASCULAR: Regular rate and rhythm. No murmur. No JVD. ABDOMEN: Soft, non-tender and non-distended. No palpable masses. EXTREMITIES: No edema. Non-tender. SKIN: No rashes or lesions. Warm. NEUROLOGIC: No focal neurological deficits. CN II-XII grossly intact, but not individually tested. PSYCHIATRIC: Cooperative. Appropriate mood and affect. Current Medications Medications (Trade) Dose Ordered Sig/Dixie Route PRN Reason Start Time Stop Time Status Last Admin Dose Admin Acetaminophen (TYLenol 325MG TAB) 650 mg Q6H PRN PO MILD PAIN (1-3) 03/26/25 16:30 04/25/25 16:29 Acetaminophen (TYLenol 500MG TAB) 1,000 mg Q6H PRN PO MILD PAIN (1-3) 04/01/25 12:00 05/01/25 11:59 Acetaminophen/ Codeine Phosphate (TYLenol-coDEINE TAB) 1 tab Q4H PRN PO MODERATE PAIN (4-6) 04/01/25 12:00 05/01/25 11:59 04/01/25 23:29 1 TAB Acetaminophen/ Codeine Phosphate (TYLenol-coDEINE TAB) 2 tab Q4H PRN PO SEVERE PAIN (7-10) 04/01/25 12:00 05/01/25 11:59 Apixaban (EliquIS) 5 mg BID PO 03/28/25 21:00 03/30/25 09:08 DC 03/29/25 20:20 5 MG Apixaban (EliquIS) 5 mg BID PO 04/05/25 09:00 05/05/25 08:59 Chlordiazepoxide HCl (LIBrium 25 MG CAP) 25 mg Q6H PRN PO ALCOHOL WITHDRAWAL PROTOCOL 03/26/25 18:30 04/02/25 18:29 Enoxaparin Sodium (Lovenox (Pharmacy To Dose)) 1 unit BID SQ 03/26/25 21:00 03/26/25 17:26 DC Furosemide (LASix 40MG VIAL) 40 mg BID IV 03/26/25 21:00 03/29/25 13:13 DC 03/29/25 07:57 40 MG Home Med (Home Medication) BID IH 03/27/25 09:00 04/26/25 08:59 Ipratropium [place] (AtrovENT UD) 0.5 mg Q6H PRN IH SHORTNESS OF BREATH 03/26/25 16:30 04/25/25 16:29 03/26/25 19:39 0.5 MG Magnesium Sulfate 50 ml @ 0 mls/hr PROTOCOL IV 03/26/25 16:30 04/25/25 16:29 03/29/25 07:08 25 MLS/HR Magnesium Sulfate 50 ml @ 0 mls/hr PROTOCOL IV 03/28/25 12:30 03/28/25 12:29 DC Metoprolol Succinate (TopROL XL) 100 mg DAILY PO 04/02/25 09:00 05/02/25 08:59 04/02/25 09:45 100 MG Metoprolol Succinate (TopROL XL) 200 mg DAILY PO 03/27/25 09:00 04/01/25 11:39 DC 03/31/25 09:03 200 MG Neomycin/ Polymyxin/ Bacitracin (Triple Antibiotic Ointment) left lower back and right elbow DAILY11 TP 03/27/25 11:00 04/26/25 10:59 03/31/25 13:15 1 APPL Ondansetron HCl (zoFRAN 4MG INJ) 4 mg Q6H PRN IVP NAUSEA/VOMITING 03/26/25 16:30 04/25/25 16:29 Pantoprazole Sodium (PROTonix 40MG TAB) 40 mg DAILY PO 03/27/25 09:00 04/26/25 08:59 04/02/25 09:46 40 MG Pharmacy Profile Note (Pharmacy Communication) 1 each ONCE MISC 03/27/25 12:30 03/27/25 12:32 DC Pharmacy Profile Note (Pharmacy Communication) 1 each PROTOCOL PRN MISC ETOH Withdrawal Score changes 03/26/25 18:30 04/02/25 18:29 Piperacillin Sod/ Tazobactam Sod (Zosyn 3.375gm+NS 50ml) 3.375 gm Q8H IVPB 03/26/25 16:30 03/27/25 12:31 DC 03/27/25 10:40 3.375 GM Piperacillin Sod/ Tazobactam Sod (Zosyn 3.375gm+NS 50ml) 3.375 gm Q8H IVPB 03/27/25 19:30 04/06/25 19:29 04/02/25 03:48 3.375 GM Potassium Chloride 100 ml @ 100 mls/hr AD PRN IV POTASSIUM PROTOCOL 03/26/25 22:30 04/25/25 22:29 04/01/25 06:19 100 MLS/HR Potassium Chloride (K-Dur 10meq Sr Tab) 10 meq BID PO 03/28/25 21:00 04/27/25 20:59 04/02/25 09:46 10 MEQ Potassium Chloride (K-Dur/Klor-Con 20meq) 20 meq AD PRN PO POTASSIUM PROTOCOL 03/26/25 22:30 04/25/25 22:29 04/02/25 06:22 20 MEQ Potassium Chloride (K-Dur/Klor-Con 20meq) 40 meq Q1H PO 03/28/25 12:30 03/28/25 13:31 DC 03/28/25 16:32 40 MEQ Potassium Chloride (KCl 10% Elixir 20meq/15ml) 20 meq AD PRN PO POTASSIUM PROTOCOL 03/26/25 22:30 04/25/25 22:29 Sodium Chloride (NS 50ml) 50 ml AD IV 03/26/25 16:30 03/26/25 16:21 DC Torsemide (Demadex) 20 mg BID PO 03/29/25 21:00 04/28/25 20:59 04/02/25 09:46 20 MG LABORATORY: [ ] Hematology Labs: Test 04/03/25 04:32 04/02/25 03:12 Range/Units White Blood Count 8.1 4.8-10.8 K/uL Red Blood Count 3.86 L 4.50-6.20 MIL/uL Hemoglobin 12.5 L 14.0-18.0 g/dL Hematocrit 37.1 L 42-54 % Mean Corpuscular Volume 96.1 79-99 fL Mean Corpuscular Hemoglobin 32.4 27.0-33.0 pg Mean Corpuscular Hemoglobin Concent 33.7 32.0-36.0 g/dL Red Cell Distribution Width 13.5 11.0-15.5 % Platelet Count 196 130-400 K/uL Mean Platelet Volume 8.3 7.5-10.5 fL Nucleated Red Blood Cells 0.0 0.0-0.19 % Immature Granulocyte % (Auto) 0.7 0-1 % Neutrophils (%) (Auto) 72.1 40.0-77.0 % Lymphocytes (%) (Auto) 10.1 L 21.0-51.0 % Monocytes (%) (Auto) 12.9 3.0-13.0 % Eosinophils (%) (Auto) 3.5 0.0-8.0 % Basophils (%) (Auto) 0.7 0.0-5.0 % Neutrophils # (Auto) 6.2 1.8-7.7 K/uL Lymphocytes # (Auto) 0.9 L 1.0-4.8 K/uL Monocytes # (Auto) 1.1 H 0.1-1.0 K/uL Eosinophils # (Auto) 0.30 0.00-0.70 K/uL Basophils # (Auto) 0.06 0.00-0.20 K/uL Absolute Immature Granulocyte (auto 0.06 0-1 K/uL Chemistry Labs: Test 04/03/25 04:32 04/01/25 15:36 Range/Units Sodium Level 134 L 136-145 mmol/L Potassium Level 3.1 L 3.5-5.1 mmol/L Chloride Level 95 L 101-111 mmol/L Carbon Dioxide Level 30 21-32 mmol/L Blood Urea Nitrogen 16 7-18 mg/dL Creatinine 0.8 0.5-1.3 mg/dL Glomerular Filtration Rate Calc 91 >90 mL/min Random Glucose 89 70-105 mg/dL Uric Acid 4.0 2.6-7.2 mg/dL Total Calcium 8.3 L 8.5-10.1 mg/dL Total Bilirubin 2.1 H 0.2-1.0 mg/dL Aspartate Amino Transf (AST/SGOT) 23 10-37 U/L Alanine Aminotransferase (ALT/SGPT) 22 12-78 U/L Alkaline Phosphatase 52 50-136 U/L Total Protein 5.6 L 6.0-8.3 g/dL Albumin 2.4 L 3.5-5.0 g/dL Magnesium Level 1.90 1.80-2.40 mg/dL DIAGNOSTICS / RADIOLOGY: [place] 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 CLINICAL HISTORY: COPD COMPARISON: Chest x-ray dated 04/02/2025. FINDINGS: Interval placement of biventricular cardiac pacemaker with its leads overlying the left ventricle and right ventricle. Implantable chest port in-situ with its tip overlying the right cavoatrial junction. LUNGS: Few atelectatic opacities in the right lower zone. PLEURAL SPACES: No pleural effusion or pneumothorax. MEDIASTINUM: Cardiac size and mediastinal contours appears enlarged. BONES: No acute osseous abnormality. IMPRESSION: Interval placement of biventricular cardiac pacemaker. Implantable chest port in-situ with appropriate tip position. Cardiomegaly. /[place] DICTATED BY: EMMY ARREDONDO MD DATE: 04/03/25854 ELECTRONICALLY SIGNED BY: EMMY ARREDONDO MD DATE: 04/03/25854 PATIENT: NURIS SENIOR MR#: [id number] : 1950 SEX: M AGE: 75 LOCATION: 2DH ORDER 161 STATUS: ADM IN REPORT#: [id number] SERVICE 161 REASON: COPD ORDERING PHYSICIAN: JUSTUS STONE MD PROCEDURE: CXR1VW - CHEST 1VW EXAM: CR Chest, 2 View. CLINICAL HISTORY: COPD COMPARISON: 03/29/2025 FINDINGS: LUNGS: The lungs show no infiltrate or other acute finding. PLEURAL SPACES: No evidence of pleural effusion or pneumothorax. MEDIASTINUM: Cardiac size is within normal limits. Right-sided chest port catheter in situ with the catheter tip appropriately located at the cavoatrial junction. Mediastinal contours are otherwise stable. BONES: No aggressive appearing osseous lesion seen. IMPRESSION: 1. No acute cardiopulmonary findings. 2. Right-sided chest port catheter in situ with appropriate tip position. No adverse interval changes. /[place] DICTATED BY: ISATU QUEEN Jr., MD DATE: 04/02/25618 ELECTRONICALLY SIGNED BY: ISATU QEUEN Jr., MD DATE: 04/02/25618 PATIENT: NURIS SENIOR MR#: [id number] : 1950 SEX: M AGE: 75 LOCATION: [facility] ORDER 09 STATUS: ADM IN REPORT#: [id number] SERVICE 160 REASON: possible cholecystitis, fall few days ago with lower back pain ORDERING PHYSICIAN: JEMAL PRIDE MD PROCEDURE: ABD PEL WO - CT ABDOMEN/PELVIS W/O CONTRAST ADDENDUM REPORT ADDENDUM: The left flank hematoma measures 20 x 4 cm. Appears subcutaneous. /[place] EXAM: CT Abdomen and Pelvis Without IV contrast CLINICAL HISTORY: possible cholecystitis, fall few days ago with lower back pain TECHNIQUE: Axial computed tomography images of the abdomen and pelvis without intravenous contrast. CONTRAST: No IV contrast. COMPARISON: None provided. FINDINGS: LUNG BASES: Small pleural LIVER: Unremarkable. GALLBLADDER AND BILE DUCTS: Some gallstones, thickened gallbladder wall. Cholecystitis cannot be excluded right upper quadrant ultrasound recommended PANCREAS: Unremarkable. SPLEEN: Unremarkable. ADRENAL GLANDS: Unremarkable. KIDNEYS, URETERS, AND BLADDER: The kidneys appear within normal limits. There is no hydronephrosis or hydroureter. No urinary calculi are seen. STOMACH AND BOWEL: Unremarkable appearance of the stomach and bowel. No evidence of bowel obstruction. No evidence suggesting enteritis or colitis. APPENDIX: No evidence of acute appendicitis on CT examination. PERITONEUM: No free fluid. No free air. LYMPH NODES: No lymphadenopathy is evident. REPRODUCTIVE: Unremarkable as visualized. VASCULATURE: No evidence of abdominal aortic aneurysm. BONES: No aggressive appearing osseous lesion. No acute osseous pathology evident. MISCELLANEOUS: Left flank subcutaneous hematoma/edema formation felt to be posttraumatic IMPRESSION: 1. Some gallstones, thickened gallbladder wall. Cholecystitis cannot be excluded right upper quadrant ultrasound recommended 2. Small pleural 3. Left flank subcutaneous hematoma/edema formation felt to be posttraumatic /[place] DICTATED BY: LELIA CURIEL MD DATE: 03/26/251921 ELECTRONICALLY SIGNED BY: DATE: EXAM: CT Abdomen and Pelvis Without IV contrast CLINICAL HISTORY: possible cholecystitis, fall few days ago with lower back pain TECHNIQUE: Axial computed tomography images of the abdomen and pelvis without intravenous contrast. CONTRAST: No IV contrast. COMPARISON: None provided. FINDINGS: LUNG BASES: Small pleural LIVER: Unremarkable. GALLBLADDER AND BILE DUCTS: Some gallstones, thickened gallbladder wall. Cholecystitis cannot be excluded right upper quadrant ultrasound recommended PANCREAS: Unremarkable. SPLEEN: Unremarkable. ADRENAL GLANDS: Unremarkable. KIDNEYS, URETERS, AND BLADDER: The kidneys appear within normal limits. There is no hydronephrosis or hydroureter. No urinary calculi are seen. STOMACH AND BOWEL: Unremarkable appearance of the stomach and bowel. No evidence of bowel obstruction. No evidence suggesting enteritis or colitis. APPENDIX: No evidence of acute appendicitis on CT examination. PERITONEUM: No free fluid. No free air. LYMPH NODES: No lymphadenopathy is evident. REPRODUCTIVE: Unremarkable as visualized. VASCULATURE: No evidence of abdominal aortic aneurysm. BONES: No aggressive appearing osseous lesion. No acute osseous pathology evident. MISCELLANEOUS: Left flank subcutaneous hematoma/edema formation felt to be posttraumatic IMPRESSION: 1. Some gallstones, thickened gallbladder wall. Cholecystitis cannot be excluded right upper quadrant ultrasound recommended 2. Small pleural 3. Left flank subcutaneous hematoma/edema formation felt to be posttraumatic /[place] DICTATED BY: LELIA CURIEL MD DATE: 03/26/251758 ELECTRONICALLY SIGNED BY: LELIA CURIEL MD DATE: 03/26/251758 PATIENT: NURIS SENIOR MR#: [id number] : 1950 SEX: M AGE: 75 LOCATION: [facility] [address] ORDER 1301 STATUS: REG [facility] REPORT#: [id number] SERVICE 1259 REASON: RIGHT UPPER QUADRANT PAIN ORDERING PHYSICIAN: FRANCIA MENDOZA PROCEDURE: ABDRUQLTD - US ABDOMINAL RUQ\LTD EXAM: US Abdomen, Right Upper Quadrant. CLINICAL HISTORY: RIGHT UPPER QUADRANT PAIN TECHNIQUE: Right upper quadrant sonography performed with image documentation. COMPARISON: None provided. FINDINGS: LIVER: The enlarged liver measures 16.4 cm with increased echogenicity suggestive of hepatic steatosis. No mass. GALLBLADDER: The gallbladder is distended with stones and wall thickening (6 mm). COMMON BILE DUCT: Within normal limits in size (6 mm). PANCREAS: The visualized pancreas appears within normal limits. The distal pancreas is obscured by bowel gas. RIGHT KIDNEY: Measures 9.1 x 4.8 x 3.7 cm. Normal renal contours. No renal mass or calculus. No hydronephrosis. IMPRESSION: 1. Cholelithiasis with gallbladder wall thickening, suggesting acute cholecystitis. 2. Hepatomegaly with increased echogenicity, consistent with hepatic steatosis. /[place] DICTATED BY: SERGIO FONSECA MD DATE: 03/26/251701 ELECTRONICALLY SIGNED BY: SERGIO FONSECA MD DATE: 03/26/251701 ASSESSMENT: Acute renal failure. Electrolyte abnormalities. Hypertension. Acute decompensated heart failure exacerbation, POA 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 Status post fall, POA History of chronic atrial fibrillation maintained on chronic anticoagulation with Eliquis, POA Moderate aortic valvular stenosis, POA Severe mitral regurgitation, POA Severe tricuspid valve regurgitation, POA Status post fall with lower back pain and left flank pain, POA Large subcutaneous left flank hematoma measuring 20 cm x 4 cm, POA History of hypertension, POA Leukocytosis, POA PLAN: Labs, diagnostic, radiologic exams reviewed and interpreted by myself and supervising physician. We have reviewed external records in detail He was counseled the importance of 1.5 L fluid restriction Potassium replacement has been ordered Require close monitoring of renal function and electrolytes Order CBC, CMP, uric acid and electrolytes in am BiPAP as necessary, for respiratory distress Monitor blood pressure adjust medication doses as needed Avoid hypotensive episodes May use Dilaudid 0.5 mg IV every 6 hours as needed for severe pain Monitor blood sugars Strict intake, output, and daily weight should be monitored Please renally adjust medications Avoid nephrotoxic and nonsteroidal drugs Avoid contrast if possible Will continue to monitor renal function, anemia, electrolytes Treatment plan discussed with patient Questions were answered We have discussed with the other team physicians in detail about the care plan We will continue to monitor the patient closely ATTESTATION BY PHYSICIAN I have seen and examined the patient. I reviewed the documentation, medical decision making, and treatment plan as noted by the mid-level provider above. I agree with the findings and plan of care. JENNIFER HAWK MD, [facility] Apr 03, 2025 12:24
--- NOTE | 2025-04-03 13:13 | PN ---
[facility] PROGRESS NOTE Date of Service: Apr 03, 2025 Time of Service: 12:59 HISTORY OF PRESENT ILLNESS: This is a 75-year-old male with history of advanced cardiomyopathy with LVEF of 30-35%, history of moderate valvular aortic stenosis, history of severe mitral valve regurgitation, COPD, history of severe tricuspid valve regurgitation, hypertension, atrial fibrillation maintained on chronic anticoagulation with Eliquis who presented to the ER for further evaluation of shortness of breadth, significant lower extremity edema as well as intermittent right upper quadrant abdominal pain. Patient is hard of hearing and patient's was present at bedside to assist with further history. reports that patient has been having progressive lower extremity edema ongoing for several days. Patient has been having dyspnea on exertion as well. Patient is followed by Dr. Lackey with Cardiology as outpatient. He is also followed by Dr. Shaw as outpatient and he has been upcoming appointment to evaluate for ICD/[employer] D therapy evaluation. Patient has a history of advanced cardiomyopathy with valvulopathy. He is currently maintained on 10 mg of torsemide daily. He is on high-dose metoprolol succinate for management of atrial fibrillation as well. He gets short of breath with minimal ambulation, he has significant lower extremity edema which has been worsening as well. Patient has been following up with his PCP for issues with gallbladder related pain. He was previously told that he has cholelithiasis. He gets intermittent right upper quadrant pain. Oral intake has been poor as well. Patient fell about two days ago, and he has been having some back pain involving the left flank and lower back. He denies syncope or hitting his head with the fall. He recently had a CT head without contrast in December after he fell and hit his head. states that CT head without contrast was negative. Since the fall, patient developed a small wound in the back for which patient's has been applying band aid to it. Patient reports having history of atrial fibrillation and is maintained on chronic anticoagulation with Eliquis. Last dose of Eliquis was earlier this morning. on Presentation to the hospital, patient was noted to be afebrile with T-max of 97.3 F, heart rate of 83 with EKG showed findings of atrial fibrillation with PVCs and prolonged QTC. [place] [address], hemoglobin of 15.4, platelet count of 551239. BMP showed sodium of 127, potassium 5.3, BUN of 21, creatinine of 1.0, BNP of 1190. Chest x-ray showed mild bilateral infiltrates, abdominal ultrasound showed findings suggestive of acute cholecystitis. SUBJECTIVE: 03/27/2025: Patient was seen and evaluated bedside, case discussed with RN and no acute overnight events. Patient says he is feeling better, denies chest pain, shortness of breath, palpitations, nausea and vomiting. Morning lab showed sodium trending up to 132, potassium trending down to 3.8, BNP trending up to 1310. Patient is currently on clear liquids, waiting for cardiac clearance before surgery for acute cholecystitis. Continue IV furosemide 40 mg b.i.d., 100 mg daily p.o., Zosyn Q 8. General surgery, Cardiology, Nephrology on board and we will follow up with the recommendations. 03/28/2025: Patient was seen and evaluated bedside in room 420. Case discussed with RN, no acute overnight events. Patient vitals are hemodynamically stable except for heart rate in late 90s and early 100s overnight. Patient is responding well to IV Lasix I and O balance this morning was -6590. Morning lab showed potassium 2.9, started replacing per protocol. HIDA scan was done this morning which was negative for acute cholecystitis. Cardiology recommended resuming Eliquis5 mg b.i.d. for AFib today, transition to torsemide 20 mg daily tomorrow. 03/29/2025: Patient was seen in room 420. He is vitally stable, 106/69, heart rate 83. He has been started on torsemide today and as per Cardiology, he will undergo evaluation for discharge to SNF facility. He continues on Eliquis 5 mg b.i.d. His BNP today is 879. we will continue to follow recommendations from Cardiology 03/30/25: Patient was seen in room 420. Patient reports no overnight events. Patient denies any chest pain, abdominal pain, shortness of breath, palpit ations, nausea and vomiting. HIDA scan was done this morning which was negative for acute cholecystitis. Cardiology are planning to schedule to place AICD with AV node ablation by Sunday and his eliquis was held from today. Currently on torsemide 20mg 03/31/25: Patient was seen in room 420. Patient reports no overnight events. Patient is scheduled for procedure to place AICD with AV node ablation tomorrow by Dr. Shaw. Patient denies any chest pain, abdominal pain, shortness of breath, palpitations, nausea and vomiting. He is vitally stable, 118/78, Pulse rate of 92. he is continuing on torsemide 20mg and metoprolol 200mg. 04/01/25: Patient was undergoing AICD placement with AV node ablation today by Rudi Shaw. 04/02/25: Patient was seen and evaluated in room 223. Patient is status post biventricular ICD insertion with AV node ablation (day1). Patient reports of pain on the incision site, apart from that patient denies any chest pain, shortness of breath, palpitations, fever, chills, nausea and vomiting. Patient is cleared as per supervisor microwave standpoint of view to SNF. 04/03/25: Patient was seen and evaluated in room 223. Patient is status post biventricular ICD insertion with AV node ablation (day2). Patient reports that his pain is getting better from the day prior. patient denies any chest pain, shortness of breath, palpitations, fever, chills, nausea and vomiting. Patient undergoing bladder training for Hough removal. REVIEW OF SYSTEMS CONSTITUTIONAL: Denies fevers or chills, reports having malaise and poor oral intake NEUROLOGICAL: Denies headache, amaurosis fugax, motor weakness, sensory deficit, vertigo/spinning sensation, gait abnormalities, or tremors. ENT: No hearing loss, otalgia, otorrhea, rhinitis, rhinorrhea, hoarseness, or sore throat. CARDIOVASCULAR: Reports having significant lower extremity edema, history of heart failure, denies active chest pain PULMONARY: Reports having dyspnea on exertion SLEEP: Denies morning headaches, daytime somnolence or napping. Denies difficulty falling asleep, staying asleep, waking from sleep. Denies knowledge of snoring. GASTROINTESTINAL: Reports having poor oral intake, denies nausea or vomiting GENITOURINARY: Denies frequency, urgency, nocturia, hematuria or incontinence (Storage/Irritative symptoms.) Low urinary stream, straining to void, urinary intermittency or hesitancy, splitting of the voiding stream, terminal dribbling. ENDOCRINOLOGIC: Denies polyuria, polydipsia, polyphagia or heat/cold intolerances. HEMATOLOGIC: Denies thrombophilia/previous clots, or coagulopathy/bleeding disorders. ONCOLOGIC: Denies personal history of malignancy. DERMATOLOGIC: Denies rashes or pruritus. PSYCHIATRIC: Denies any suicidal or homicidal ideation. Denies hallucinations. PHYSICAL EXAM GENERAL APPEARANCE: The patient is awake, alert, and oriented, in no acute cardiopulmonary distress, appears debilitated NEUROLOGICAL: Cranial nerves II-XII grossly intact. Motor is 5/5 in bilateral upper and lower extremities proximal to distal. No sensory deficits. HEENT: Face is symmetric. Pupils are equal and reactive. Extraocular movements are intact. NECK: Supple. No JVD. No thyromegaly. No submental, submandibular, pre- /postauricular, occipital or supraclavicular lymphadenopathy. CHEST: Tenderness at the incision site. Normal chest expansion. No Telemetry. LUNGS: minimal crackles noted of the bilateral lung bases CARDIOVASCULAR: Regular. S1 and S2 normal. No appreciable rubs, murmurs or gallops. ABDOMEN: Soft, nontender, and nondistended. There is no rebound, voluntary guarding, or rigidity. : Deferred. No Hough. EXTREMITIES: 3+ pitting edema noted of the bilateral lower extremities SKIN: skin tear noted of the lower back Vital Signs (last 8hr) Date Time Temp Pulse Resp B/P (MAP) Pulse Ox O2 Delivery O2 Flow Rate FiO2 04/03/25 11:43 97.5 94 18 113/71 93 Room Air 04/03/25 10:40 98 Room Air* 0 21 04/03/25 07:57 97.9 91 18 114/70 99 Room Air 04/03/25 07:33 85 18 N/A Room Air 21 LABS: Laboratory: Test 04/03/25 04:32 04/02/25 22:12 04/02/25 03:12 04/01/25 15:36 Range/Units White Blood Count 8.1 4.8-10.8 K/uL Red Blood Count 3.86 L 4.50-6.20 MIL/uL Hemoglobin 12.5 L 14.0-18.0 g/dL Hematocrit 37.1 L 42-54 % Mean Corpuscular Volume 96.1 79-99 fL Mean Corpuscular Hemoglobin 32.4 27.0-33.0 pg Mean Corpuscular Hemoglobin Concent 33.7 32.0-36.0 g/dL Red Cell Distribution Width 13.5 11.0-15.5 % Platelet Count 196 130-400 K/uL Mean Platelet Volume 8.3 7.5-10.5 fL Nucleated Red Blood Cells 0.0 0.0-0.19 % Sodium Level 134 L 136-145 mmol/L Potassium Level 3.1 L 3.5-5.1 mmol/L Chloride Level 95 L 101-111 mmol/L Carbon Dioxide Level 30 21-32 mmol/L Blood Urea Nitrogen 16 7-18 mg/dL Creatinine 0.8 0.5-1.3 mg/dL Glomerular Filtration Rate Calc 91 >90 mL/min Random Glucose 89 70-105 mg/dL Uric Acid 4.0 2.6-7.2 mg/dL Total Calcium 8.3 L 8.5-10.1 mg/dL Total Bilirubin 2.1 H 0.2-1.0 mg/dL Aspartate Amino Transf (AST/SGOT) 23 10-37 U/L Alanine Aminotransferase (ALT/SGPT) 22 12-78 U/L Alkaline Phosphatase 52 50-136 U/L Total Protein 5.6 L 6.0-8.3 g/dL Albumin 2.4 L 3.5-5.0 g/dL Urine Color LIGHT-YELLOW YELLOW Urine Appearance CLEAR CLEAR Urine pH 6.5 5.0-8.0 Urine Specific [place] 1.015 1.001-1.031 Urine Protein NEGATIVE NEGATIVE mg/dL Urine Glucose (UA) NEGATIVE NEGATIVE mg/dL Urine Ketones NEGATIVE NEGATIVE mg/dL Urine Occult Blood NEGATIVE NEGATIVE Urine Nitrate NEGATIVE NEGATIVE Urine Bilirubin NEGATIVE NEGATIVE mg/dL Urine Urobilinogen 0.2 0.2-1.0 mg/dL Urine Leukocyte Esterase 25 H NEGATIVE Sea/uL Urine RBC 2-5 H 0-1 /HPF Urine WBC 6-10 H 0-1 /HPF Urine Bacteria None None Seen /HPF Immature Granulocyte % (Auto) 0.7 0-1 % Neutrophils (%) (Auto) 72.1 40.0-77.0 % Lymphocytes (%) (Auto) 10.1 L 21.0-51.0 % Monocytes (%) (Auto) 12.9 3.0-13.0 % Eosinophils (%) (Auto) 3.5 0.0-8.0 % Basophils (%) (Auto) 0.7 0.0-5.0 % Neutrophils # (Auto) 6.2 1.8-7.7 K/uL Lymphocytes # (Auto) 0.9 L 1.0-4.8 K/uL Monocytes # (Auto) 1.1 H 0.1-1.0 K/uL Eosinophils # (Auto) 0.30 0.00-0.70 K/uL Basophils # (Auto) 0.06 0.00-0.20 K/uL Absolute Immature Granulocyte (auto 0.06 0-1 K/uL Magnesium Level 1.90 1.80-2.40 mg/dL Current Medications Medications (Trade) Dose Ordered Sig/Dixie Route PRN Reason Start Time Stop Time Status Last Admin Dose Admin Acetaminophen (TYLenol 325MG TAB) 650 mg Q6H PRN PO MILD PAIN (1-3) 03/26/25 16:30 04/25/25 16:29 Acetaminophen (TYLenol 500MG TAB) 1,000 mg Q6H PRN PO MILD PAIN (1-3) 04/01/25 12:00 05/01/25 11:59 Acetaminophen/ Codeine Phosphate (TYLenol-coDEINE TAB) 1 tab Q4H PRN PO MODERATE PAIN (4-6) 04/01/25 12:00 05/01/25 11:59 04/01/25 23:29 1 TAB Acetaminophen/ Codeine Phosphate (TYLenol-coDEINE TAB) 2 tab Q4H PRN PO SEVERE PAIN (7-10) 04/01/25 12:00 05/01/25 11:59 Apixaban (EliquIS) 5 mg BID PO 03/28/25 21:00 03/30/25 09:08 DC 03/29/25 20:20 5 MG Apixaban (EliquIS) 5 mg BID PO 04/05/25 09:00 05/05/25 08:59 Chlordiazepoxide HCl (LIBrium 25 MG CAP) 25 mg Q6H PRN PO ALCOHOL WITHDRAWAL PROTOCOL 03/26/25 18:30 04/02/25 18:29 DC Enoxaparin Sodium (Lovenox (Pharmacy To Dose)) 1 unit BID SQ 03/26/25 21:00 03/26/25 17:26 DC Furosemide (LASix 40MG VIAL) 40 mg BID IV 03/26/25 21:00 03/29/25 13:13 DC 03/29/25 07:57 40 MG Home Med (Home Medication) BID IH 03/27/25 09:00 04/26/25 08:59 Ipratropium [place] (AtrovENT UD) 0.5 mg Q6H PRN IH SHORTNESS OF BREATH 03/26/25 16:30 04/25/25 16:29 03/26/25 19:39 0.5 MG Magnesium Sulfate 50 ml @ 0 mls/hr PROTOCOL IV 03/26/25 16:30 04/25/25 16:29 03/29/25 07:08 25 MLS/HR Magnesium Sulfate 50 ml @ 0 mls/hr PROTOCOL IV 03/28/25 12:30 03/28/25 12:29 DC Metoprolol Succinate (TopROL XL) 100 mg DAILY PO 04/02/25 09:00 05/02/25 08:59 04/03/25 10:32 100 MG Metoprolol Succinate (TopROL XL) 200 mg DAILY PO 03/27/25 09:00 04/01/25 11:39 DC 03/31/25 09:03 200 MG Neomycin/ Polymyxin/ Bacitracin (Triple Antibiotic Ointment) left lower back and right elbow DAILY11 TP 03/27/25 11:00 04/26/25 10:59 04/03/25 10:35 1 APPL Ondansetron HCl (zoFRAN 4MG INJ) 4 mg Q6H PRN IVP NAUSEA/VOMITING 03/26/25 16:30 04/25/25 16:29 Pantoprazole Sodium (PROTonix 40MG TAB) 40 mg DAILY PO 03/27/25 09:00 04/26/25 08:59 04/03/25 10:33 40 MG Pharmacy Profile Note (Pharmacy Communication) 1 each ONCE MISC 03/27/25 12:30 03/27/25 12:32 DC Pharmacy Profile Note (Pharmacy Communication) 1 each PROTOCOL PRN MISC ETOH Withdrawal Score changes 03/26/25 18:30 04/02/25 18:29 DC Piperacillin Sod/ Tazobactam Sod (Zosyn 3.375gm+NS 50ml) 3.375 gm Q8H IVPB 03/26/25 16:30 03/27/25 12:31 DC 03/27/25 10:40 3.375 GM Piperacillin Sod/ Tazobactam Sod (Zosyn 3.375gm+NS 50ml) 3.375 gm Q8H IVPB 03/27/25 19:30 04/06/25 19:29 04/03/25 10:34 3.375 GM Potassium Chloride 100 ml @ 100 mls/hr AD PRN IV POTASSIUM PROTOCOL 03/26/25 22:30 04/25/25 22:29 04/01/25 06:19 100 MLS/HR Potassium Chloride (K-Dur 10meq Sr Tab) 10 meq BID PO 03/28/25 21:00 04/27/25 20:59 04/03/25 12:53 10 MEQ Potassium Chloride (K-Dur/Klor-Con 20meq) 20 meq AD PRN PO POTASSIUM PROTOCOL 03/26/25 22:30 04/25/25 22:29 04/02/25 06:22 20 MEQ Potassium Chloride (K-Dur/Klor-Con 20meq) 40 meq Q1H PO 03/28/25 12:30 03/28/25 13:31 DC 03/28/25 16:32 40 MEQ Potassium Chloride (KCl 10% Elixir 20meq/15ml) 20 meq AD PRN PO POTASSIUM PROTOCOL 03/26/25 22:30 04/25/25 22:29 04/03/25 06:16 20 MEQ Sodium Chloride (NS 50ml) 50 ml AD IV 03/26/25 16:30 03/26/25 16:21 DC Torsemide (Demadex) 20 mg BID PO 03/29/25 21:00 04/28/25 20:59 04/03/25 10:32 20 MG DIAGNOSTICS / RADIOLOGY: [address] [address] IMAGING REPORT Signed PATIENT: NURIS SENIOR MR#: [id number] : 1950 SEX: M AGE: 75 LOCATION: 2DH ORDER 2300 STATUS: ADM IN REPORT#: [id number] SERVICE 0600 REASON: s/p Phlebotomist Associate-d ORDERING PHYSICIAN: BRENDA SHAW MD PROCEDURE: CXR1VW - CHEST 1VW EXAM: CR Chest,1 View. CLINICAL HISTORY: COPD COMPARISON: Chest x-ray dated 04/02/2025. FINDINGS: Interval placement of biventricular cardiac pacemaker with its leads overlying the left ventricle and right ventricle. Implantable chest port in-situ with its tip overlying the right cavoatrial junction. LUNGS: Few atelectatic opacities in the right lower zone. PLEURAL SPACES: No pleural effusion or pneumothorax. MEDIASTINUM: Cardiac size and mediastinal contours appears enlarged. BONES: No acute osseous abnormality. IMPRESSION: Interval placement of biventricular cardiac pacemaker. Implantable chest port in-situ with appropriate tip position. Cardiomegaly. /[place] DICTATED BY: EMMY ARREDONDO MD DATE: 04/03/25854 ELECTRONICALLY SIGNED BY: EMMY ARREDONDO MD DATE: 04/03/25854 ASSESSMENT: Acute decompensated heart failure exacerbation, POA 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 Status post fall, POA History of chronic atrial fibrillation maintained on chronic anticoagulation with Eliquis, POA Moderate aortic valvular stenosis, POA Severe mitral regurgitation, POA Severe tricuspid valve regurgitation, POA Status post fall with lower back pain and left flank pain, POA Large subcutaneous left flank hematoma measuring 20 cm x 4 cm, POA History of hypertension, POA Hypervolemic hyponatremia, POA Hyperkalemia, POA Leukocytosis, POA PLAN: Acute decompensated systolic heart failure exacerbation, POA * Patient is known case of systolic heart failure taking torsemide 10 mg * On arrival patient's BNP 1190, * 2D echo from 02/24/2025 shows LVEF 30-35, potassium is severely dilated, right ventricular severely dilated * Patient was started on IV furosemide 40 mg b.i.d, which has been discontinued and patient restarted on torsemide 20 mg BID p.o. (03/29) * Metoprolol 200mg was discontinued and patient was started on metoprolol 100mg from 04/02/25. * Input and output balance was -2550 on 04/03/2025 * Cardiology on board, we will follow up with the recommendations. Cholelithiasis, POA * Patient had right upper quadrant pain on arrival * Abdominal ultrasound showed cholelithiasis with gallbladder wall thickening, suggesting acute cholecystitis * CT abdomen showed small gallstones, thickened gallbladder wall. * Continue Zosyn IV Q8 * Patient is currently on clear liquid, surgery on board and we will follow up with the recommendation * HIDA scan performed on 03/28/2025 showed negative for acute cholecystitis. Ruled out cholecystitis. Hypervolemic hyponatremia, POA * On presentation sodium was 127 * patient placed on 1.5L fluid restriction. * Start torsemide 20 mg b.i.d. * we will trend sodium levels daily History of chronic atrial fibrillation maintained on chronic anticoagulation with Eliquis, POA * patient is known case of Afib on chronic eliquis 5mg daily at home * imaging showed Large subcutaneous left flank hematoma measuring 20 cm x 4 cm * Continuing on Metoprolol 200mg. * Eliquis on hold secondary to recent trauma and do also want to hold any Lovenox but would like to reinitiate Eliquis in the next 24-36 hours of H&H is hold. * Eliquis 5 mg b.i.d. was held from 03/30/25 for scheduled procedure of AICD placement and AV node ablation by Dr. Shaw. * Patient underwent biventricular AICD placement and AV node ablation by Dr. Shaw today (04/01/25). * Eliquis scheduled to be resumed from 04/05/25. * Patient is cleared as per supervisor microwave standpoint of view to be discharged to SNF. Supportive measures: Patient has a wound in the back from recent fall, Wound Care requested PT evaluation was ordered. 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 I reviewed the documentation, medical decision making, and treatment plan as noted by the resident physician above. I agree with the findings and plan of care. MANJULA GARCIA MD, SHAJI MD Apr 03, 2025 13:13
--- NOTE | 2025-04-03 14:15 | NUR ---
Patient now with recent pacemaker placement to LUE/pacemaker precautions. Patient also noted with severe R shldr OA never had surgery. Limited in his use of UE's with AD.
[2025-04-03] MEDS: PoTASSium chloRIDE 10MEQ SR 10 MEQ/TAB TAB.SR.24H PO SCH (21:40)
== END 2025-04-04 03:42 | DRG 276 ==
LOC: EDH 12:51 → EDHIP 15:57 → 2DH 20:16 → 4CH 03-27 14:33 → 2DH 04-01 12:05
PROVIDERS: ADMIT Internal Medicine; ATTEND Internal Medicine
PROC: 0JH609Z Insertion of Cardiac Resynchronization Defibrillator Pulse Generator into Chest Subcutaneous Tissue and Fascia, Open Approach (ICD-10-PCS; principal; 2025-04-01)
PROC: 02HK3KZ Insertion of Defibrillator Lead into Right Ventricle, Percutaneous Approach (ICD-10-PCS; 2025-04-01)
PROC: 02HL3KZ Insertion of Defibrillator Lead into Left Ventricle, Percutaneous Approach (ICD-10-PCS; 2025-04-01)
PROC: 02583ZZ Destruction of Conduction Mechanism, Percutaneous Approach (ICD-10-PCS; 2025-04-01)
PROC: 02K83ZZ Map Conduction Mechanism, Percutaneous Approach (ICD-10-PCS; 2025-04-01)
PROC: 4A0234Z Measurement of Cardiac Electrical Activity, Percutaneous Approach (ICD-10-PCS; 2025-04-01)
DX: I13.0 Hypertensive heart and chronic kidney disease with heart failure and stage 1 through stage 4 chronic kidney disease, or unspecified chronic kidney disease (principal); I50.43 Acute on chronic combined systolic (congestive) and diastolic (congestive) heart failure; I48.21 Permanent atrial fibrillation; D68.59 Other primary thrombophilia; E87.1 Hypo-osmolality and hyponatremia; K80.00 Calculus of gallbladder with acute cholecystitis without obstruction; N17.9 Acute kidney failure, unspecified; J44.9 Chronic obstructive pulmonary disease, unspecified; I70.0 Atherosclerosis of aorta; D64.9 Anemia, unspecified; I08.3 Combined rheumatic disorders of mitral, aortic and tricuspid valves; K76.0 Fatty (change of) liver, not elsewhere classified; N18.9 Chronic kidney disease, unspecified; Z79.01 Long term (current) use of anticoagulants; I42.0 Dilated cardiomyopathy; S30.13XA Contusion of flank (latus) region, initial encounter; D72.829 Elevated white blood cell count, unspecified; E87.5 Hyperkalemia; E87.6 Hypokalemia; E87.8 Other disorders of electrolyte and fluid balance, not elsewhere classified; I49.3 Ventricular premature depolarization; S20.229A Contusion of unspecified back wall of thorax, initial encounter; M47.817 Spondylosis without myelopathy or radiculopathy, lumbosacral region; I87.2 Venous insufficiency (chronic) (peripheral); Z85.038 Personal history of other malignant neoplasm of large intestine; Z79.899 Other long term (current) drug therapy; Z87.891 Personal history of nicotine dependence; W18.39XA Other fall on same level, initial encounter; Z95.810 Presence of automatic (implantable) cardiac defibrillator; Y92.009 Unspecified place in unspecified non-institutional (private) residence as the place of occurrence of the external cause; Y93.89 Activity, other specified; Y99.8 Other external cause status
CPT/HCPCS: 33225; 33249; 36415; 70450; 71045; 72100; 74176; 76705; 78226; 80048; 80053; 81001; 81003; 82570; 83036; 83605; 83615; 83735; 83880; 84100; 84132; 84145; 84300; 84443; 84484; 84540; 84550; 85014; 85018; 85025; 85027; 85610; 85651; 85730; 86140; 86850; 86900; 86901; 87040; 87086; 93005; 93619; 93650; 93970; 94640; 99156; 99157; 99285; A9537; C1769; C1894; G0378; J1200; J1644; J1938; J2250; J2270; J2405; J2543; J3010; J3373; J3475; J3480; J3490; Q9967; A4649; C1732; C1760; C1882; C1895; C1896; C1900; J0665